=== PATIENT | male | born 1965 | race Caucasian/White ===

== ENCOUNTER 2016-09-06 09:19 | Outpatient (CLI) | payer MEDICAID | END 2016-09-06 23:59 | DX: E11.9 Type 2 diabetes mellitus without complications (principal); E22.1 Hyperprolactinemia; D35.2 Benign neoplasm of pituitary gland; N52.9 Male erectile dysfunction, unspecified ==

== ENCOUNTER 2017-03-03 08:45 | Outpatient (CLI) | payer MEDICAID ==
[2017-03-03 14:11] LABS: BASOPHILS % (AUTO) 0.4 %; EOSINOPHILS # (AUTO) 0.1 10^3/uL (0.0-0.7); HCT - HEMATOCRIT 38.1 % (42.0-52.0); HGB - HEMOGLOBIN 12.7 g/dL (14.0-18.0); LYMPHOCYTES # (AUTO) 1.4 10^3/uL (1.5-3.5); MEAN CORPUSCULAR HEMOGLOBIN 28.6 pg (27.0-31.0); MEAN CORPUSCULAR HGB CONC 33.4 g/dL (32.0-36.0); MEAN CORPUSCULAR VOLUME 85.6 fL (80.0-94.0); MONOCYTES # (AUTO) 0.5 10^3/uL (0.0-1.0); MONOCYTES % (AUTO) 5.8 %; NEUTROPHILS # (AUTO) 6.1 10^3/uL (1.5-6.6); NEUTROPHILS % (AUTO) 75.8 %; NUCLEATED RED BLOOD CELLS AUTO 0.1 /100WBC; RED BLOOD COUNT 4.45 10^6/uL (4.70-6.10); RED CELL DISTRIBUTION WIDTH 14.8 % (12.0-15.0)
[2017-03-03 14:23] LABS: ALBUMIN/GLOBULIN RATIO 1.4 (1.0-2.2); BILIRUBIN,TOTAL 0.5 mg/dL (0.2-1.0); BUN - BLOOD UREA NITROGEN 16 mg/dL (6-20); CARBON DIOXIDE - CO2 25 mmol/L (21-32); CHLORIDE 104 mmol/L (101-111); CHOL/HDL RATIO 3.2 (<5.0); CHOLESTEROL 133 mg/dL; CREATININE 0.6 mg/dL (0.6-1.2); GFR - MDRD 141 (>89); GLUCOSE 165 mg/dL (70-100); HDL CHOLESTEROL 41 mg/dL; LDL/HDL RATIO 1.9 (<3.6); POTASSIUM 4.4 mmol/L (3.5-5.0); SODIUM 136 mmol/L (135-145); TOTAL PROTEIN 6.9 g/dL (6.7-8.2); TRIGLYCERIDES 73 mg/dL; VLDL CHOLESTEROL 15 mg/dL
[2017-03-03 14:49] LABS: HEMOGLOBIN A1C 0.92 g/dL
== END 2017-03-03 08:46 | disposition home or self-care (01) ==
LOC: LAB.N 08:45
PROVIDERS: ATTEND Nurse Practitioner Gerontology
DX: I10 Essential (primary) hypertension (principal); E11.9 Type 2 diabetes mellitus without complications; D35.2 Benign neoplasm of pituitary gland; E22.1 Hyperprolactinemia
CPT/HCPCS: 36415; 80053; 80061; 83036; 84146; 85025

== ENCOUNTER 2017-12-30 08:00 | Outpatient (CLI) | payer MEDICAID ==
[2017-12-30 12:52] LABS: ALBUMIN 4.1 g/dL (3.2-5.5); ALBUMIN/GLOBULIN RATIO 1.1 (1.0-2.2); BILIRUBIN,TOTAL 0.5 mg/dL (0.2-1.0); CALCIUM 9.1 mg/dL (8.5-10.3); CREATININE 0.7 mg/dL (0.6-1.2); TOTAL PROTEIN 7.7 g/dL (6.7-8.2)
[2017-12-30 13:10] LABS: HB2 TOTAL 13.8 g/dL; HEMOGLOBIN A1C 0.74 g/dL; HEMOGLOBIN A1C % 7.1 % (4.6-6.2)
== END 2017-12-30 08:01 | disposition home or self-care (01) ==
LOC: LAB.N 08:00
PROVIDERS: ATTEND Nurse Practitioner Gerontology
DX: E11.9 Type 2 diabetes mellitus without complications (principal); I10 Essential (primary) hypertension; D35.2 Benign neoplasm of pituitary gland
CPT/HCPCS: 36415; 80053; 83036; 84146

== ENCOUNTER 2018-06-01 08:00 | Outpatient (CLI) | payer MEDICAID ==
[2018-06-01 16:48] LABS: HB2 TOTAL 13.6 g/dL; HEMOGLOBIN A1C 0.61 g/dL; HEMOGLOBIN A1C % 6.3 % (4.6-6.2)
== END 2018-06-01 23:59 | disposition home or self-care (01) ==
LOC: LAB.N 08:00
PROVIDERS: ATTEND Nurse Practitioner Gerontology
DX: E11.9 Type 2 diabetes mellitus without complications (principal)
CPT/HCPCS: 36415; 83036

== ENCOUNTER 2019-08-27 08:42 | Outpatient (CLI) | payer MEDICAID ==
[2019-08-27 12:12] LABS: BASOPHILS % (AUTO) 0.3 %; EOSINOPHILS # (AUTO) 0.1 10^3/uL (0.0-0.7); EOSINOPHILS % (AUTO) 0.8 %; HGB - HEMOGLOBIN 14.9 g/dL (14.0-18.0); LYMPHOCYTES # (AUTO) 1.1 10^3/uL (1.5-3.5); LYMPHOCYTES % (AUTO) 18.2 %; MEAN CORPUSCULAR HEMOGLOBIN 29.5 pg (27.0-31.0); MEAN CORPUSCULAR VOLUME 89.5 fL (80.0-94.0); MEAN PLATELET VOLUME 13.4 fL (7.4-11.4); MONOCYTES # (AUTO) 0.5 10^3/uL (0.0-1.0); MONOCYTES % (AUTO) 7.5 %; NEUTROPHILS # (AUTO) 4.4 10^3/uL (1.5-6.6); NEUTROPHILS % (AUTO) 72.5 %; PLT - PLATELET COUNT 218 10^3/uL (130-450); RED BLOOD COUNT 5.05 10^6/uL (4.70-6.10); RED CELL DISTRIBUTION WIDTH 12.9 % (12.0-15.0)
[2019-08-27 12:24] LABS: ALBUMIN/GLOBULIN RATIO 1.3 (1.0-2.2); ALKALINE PHOSPHATASE 90 IU/L (42-121); ALT ALANINE AMINOTRANSFERASE 22 IU/L (10-60); AST ASPARTATE AMINOTRANSFERASE 13 IU/L (10-42); BILIRUBIN,TOTAL 0.7 mg/dL (0.2-1.0); BUN - BLOOD UREA NITROGEN 13 mg/dL (6-20); CALCIUM 8.6 mg/dL (8.5-10.3); CARBON DIOXIDE - CO2 25 mmol/L (21-32); CHLORIDE 97 mmol/L (101-111); CHOL/HDL RATIO 3.9 (<5.0); CHOLESTEROL 165 mg/dL; CREATININE 0.6 mg/dL (0.6-1.2); GLUCOSE 312 mg/dL (70-100); HDL CHOLESTEROL 42 mg/dL; LDL CHOLESTEROL,CALCULATED 103 mg/dL; LDL/HDL RATIO 2.5 (<3.6); SODIUM 131 mmol/L (135-145); VLDL CHOLESTEROL 20 mg/dL
[2019-08-27 12:33] LABS: PSA FREE 0.07 ng/mL (0.16-2.81)
[2019-08-27 12:34] LABS: PSA TOTAL 0.31 ng/mL (0.000-2.000)
[2019-08-27 17:22] LABS: HB2 TOTAL 15.4 g/dL; HEMOGLOBIN A1C 1.59 g/dL; HEMOGLOBIN A1C % 11.6 % (4.6-6.2)
== END 2019-08-27 23:59 | disposition home or self-care (01) ==
LOC: LAB.N 08:42
PROVIDERS: ATTEND Nurse Practitioner Gerontology
DX: I10 Essential (primary) hypertension (principal); E11.9 Type 2 diabetes mellitus without complications; D35.2 Benign neoplasm of pituitary gland; R35.0 Frequency of micturition; R35.1 Nocturia
CPT/HCPCS: 36415; 80053; 80061; 83036; 83721; 84146; 84153; 84154; 85025

== ENCOUNTER 2020-04-27 09:52 | Outpatient (CLI) | payer OTHER, MEDICAID ==
--- NOTE | 2020-04-27 14:32 | XRAY Report ---
PROCEDURE: Lumbar Spine 2 View INDICATIONS: low back pain TECHNIQUE: 3 views of the lumbar spine were acquired. COMPARISON: None. FINDINGS: Bones: 5 [id number] vertebrae are present. There is normal bony alignment. No acute vertebral body compression fractures. No suspicious bony lesions. Mild lumbar spondylitic changes most promi nent at L2-3. Soft tissues: Overlying bowel gas pattern is normal. No suspicious soft tissue calcifications. IMPRESSION: Lumbar spine without acute radiographic abnormalities. Lumbar spondylosis most pronounce d at L2-3. Reviewed by: Lance Sampson MD on 04/27/2020 2:31 PM PST Approved by: Lance Sampson MD on 04/27/2020 2:31 PM PST Station ID: [id number]
== END 2020-04-27 23:59 | disposition home or self-care (01) ==
LOC: DI.N 09:52
PROVIDERS: ATTEND Family Medicine
DX: S39.012A Strain of muscle, fascia and tendon of lower back, initial encounter (principal); M47.816 Spondylosis without myelopathy or radiculopathy, lumbar region

== ENCOUNTER 2020-04-30 09:34 | Emergency (ER) | payer OTHER, MEDICAID ==
--- NOTE | 2020-04-30 10:21 | ED Physician Documentation ---
PD HPI BACK PAIN - Stated complaint Stated Complaint: BACK INJ - Chief complaint Chief Complaint: Back Pain - History obtained from History obtained from: Patient - History of Present Illness Timing - onset: How many days ago (4) Timing - duration: Days (4) Timing - details: Abrupt onset (at work when lifting object), Still present Location: Lower, Left Quality: Pain, Spasm, Aching Associated symptoms: No: Fever, Weakness, Numbness, Incontinent of urine Improves with: Rest. No: Meds (some improved only with Ibuprofen and muscle relaxant.) Worsened by: Movement, Lifting Contributing factors: Lifting. No: Trauma Similar symptoms before: Has not had sx before Recently seen: Clinic (walk in clinic and Rx with nsaid and muscle relaxant. Had plain xrays. Pt says some better but still hurting enough to not sleep when lying.) Review of Systems Constitutional: denies: Fever, Chills Nose: denies: Rhinorrhea / runny nose, Congestion Throat: denies: Sore throat Respiratory: denies: Cough GI: denies: Abdominal Pain, Nausea, Vomiting, Diarrhea Skin: denies: Rash Musculoskeletal: reports: Back pain Neurologic: denies: Focal weakness, Numbness PD PAST MEDICAL HISTORY - Past Medical History Cardiovascular: None Respiratory: None Neuro: None Endocrine/Autoimmune: Type 2 diabetes - Past Surgical History Past Surgical History: Yes - Present Medications Home Medications: Ambulatory Orders Medication Instructions Recorded Confirmed Sulfamethoxazole/Trimethoprim 1 each PO BID #20 tablet 08/28/14 [Bactrim Ds Tablet] cephALEXin [Keflex] 500 mg PO Q6H 10 Days capsule 08/28/14 Oxycodone HCl/Acetaminophen 1 each PO Q6H PRN #20 tablet 04/30/20 [Percocet 7.5-325 mg Tablet] - Allergies Allergies/Adverse Reactions: Allergies Allergy/AdvReac Type Severity Reaction Status Date / Time No Known Drug Allergies Allergy Verified 04/30/20 09:49 - Social History Does the pt smoke?: No Smoking Status: Never smoker Does the pt drink ETOH?: Yes Does the pt have substance abuse?: No - POLST Patient has POLST: No PD ED PE NORMAL - Vitals Vital signs reviewed: Yes - General General: Alert and oriented X 3, Well developed/nourished, Other (appears uncomfortable. ) - Cardiac Cardiac: RRR, No murmur - Respiratory Respiratory: Clear bilaterally - Abdomen Abdomen: Soft, Non tender - Back Back: No CVA TTP, Other (tender left lower lumbar muscles. No midline tenderness. No rash nor sores. ) - Derm Derm: Normal color, Warm and dry - Neuro Neuro: Alert and oriented X 3, No motor deficit, No sensory deficit, Normal speech, Other (normal reflexes at knees. ) Results - Vitals Vitals: Vital Signs - 24 hr 04/30/20 04/30/20 09:44 10:47 Temperature 36.9 C 36.0 C L Heart Rate 122 H 100 Respiratory 20 18 Rate Blood Pressure 118/75 125/71 O2 Saturation 98 95 Oxygen O2 Source Room air PD MEDICAL DECISION MAKING - ED course Complexity details: reviewed old records, considered differential, d/w patient Departure - Departure Disposition: 01 Home, Self Care Clinical Impression: Low back strain Qualifiers: Encounter type: initial encounter Qualified Code(s): S39.012A - Strain of muscle, fascia and tendon of lower back, initial encounter Acute low back pain Qualifiers: Back pain laterality: unspecified Sciatica presence: without sciatica Qualified Code(s): M54.5 - Low back pain Condition: Stable Record reviewed to determine appropriate education?: Yes Instructions: ED Sprain Strain Lumbar Prescriptions: Oxycodone HCl/Acetaminophen [Percocet 7.5-325 mg Tablet] 1 each PO Q6H PRN #20 tablet PRN Reason: Pain Comments: Continue with the anti-inflammatories and muscle relaxants previously prescribed. Heat and gentle stretching for the low back. Massage or chiropractic may be helpful as well. At Tylenol or oxycodone as needed for worse pain. I would anticipate improvement over the next several days and resolved over several days to week. Follow-up with your primary care if not improved in that timeframe. Minimal bending and lifting for the next week. Forms: Activity restrictions Discharge Date/Time: 04/30/20 11:12
[2020-04-30] MEDS ORDERED: KETOROLAC 30 MG/ML VIAL IM STA (10:40)
[2020-04-30] MEDS ORDERED: ACETAMINOPHEN 325 MG TABLET PO STA (10:40)
[2020-04-30 10:48] VITALS: BP 125/71
== END 2020-04-30 11:12 | disposition home or self-care (01) ==
LOC: ED 09:34
DX: S39.012A Strain of muscle, fascia and tendon of lower back, initial encounter (principal); X50.0XXA Overexertion from strenuous movement or load, initial encounter; Y99.0 Civilian activity done for income or pay; E11.9 Type 2 diabetes mellitus without complications
CPT/HCPCS: 99282; 99284; A9270

== ENCOUNTER 2020-05-10 08:00 | Outpatient (CLI) | payer OTHER, MEDICAID ==
[2020-05-10 12:59] LABS: BASOPHILS % (AUTO) 0.3 %; EOSINOPHILS % (AUTO) 0.3 %; LYMPHOCYTES # (AUTO) 0.7 10^3/uL (1.5-3.5); LYMPHOCYTES % (AUTO) 6.9 %; MEAN CORPUSCULAR HEMOGLOBIN 28.1 pg (27.0-31.0); MEAN CORPUSCULAR HGB CONC 30.9 g/dL (32.0-36.0); MEAN PLATELET VOLUME 11.1 fL (7.4-11.4); MONOCYTES # (AUTO) 0.5 10^3/uL (0.0-1.0); MONOCYTES % (AUTO) 5.2 %; NEUTROPHILS # (AUTO) 8.4 10^3/uL (1.5-6.6); NEUTROPHILS % (AUTO) 85.8 %; PLT - PLATELET COUNT 326 10^3/uL (130-450); RED BLOOD COUNT 3.91 10^6/uL (4.70-6.10); WHITE BLOOD COUNT 9.8 x10^3/uL (4.8-10.8)
[2020-05-10 13:33] LABS: ALBUMIN 3.2 g/dL (3.2-5.5); ALBUMIN/GLOBULIN RATIO 0.8 (1.0-2.2); ALKALINE PHOSPHATASE 104 IU/L (42-121); ALT ALANINE AMINOTRANSFERASE 44 IU/L (10-60); AST ASPARTATE AMINOTRANSFERASE 21 IU/L (10-42); BILIRUBIN,TOTAL 0.6 mg/dL (0.2-1.0); BUN - BLOOD UREA NITROGEN 15 mg/dL (6-20); CARBON DIOXIDE - CO2 26 mmol/L (21-32); CHLORIDE 97 mmol/L (101-111); CHOL/HDL RATIO 3.5 (<5.0); CHOLESTEROL 138 mg/dL; CREATININE 0.6 mg/dL (0.6-1.2); GLUCOSE 163 mg/dL (70-100); HDL CHOLESTEROL 39 mg/dL; LDL CHOLESTEROL,CALCULATED 81 mg/dL; LDL/HDL RATIO 2.1 (<3.6); SODIUM 133 mmol/L (135-145); TOTAL PROTEIN 7.2 g/dL (6.7-8.2); VLDL CHOLESTEROL 18 mg/dL
[2020-05-10 13:38] LABS: PROLACTIN 1.62 ng/mL
[2020-05-10 13:46] LABS: CREATININE,URINE 226.8 mg/dL; MICROALBUM/CREATININE RATIO,UR 35.3 ug/mg (<30.0)
[2020-05-10 13:52] LABS: HEMOGLOBIN A1c% 7.6 % (4.27-6.07)
[2020-05-13 03:47] LABS: ALBUMIN 3.3 g/dL (3.6-5.1); SEX HORMONE BINDING GLOBULIN 44 nmol/L (22-77)
== END 2020-05-10 23:59 | disposition home or self-care (01) ==
LOC: LAB.WCP 08:00
PROVIDERS: ATTEND Family Medicine
DX: R79.89 Other specified abnormal findings of blood chemistry (principal); E22.1 Hyperprolactinemia; I10 Essential (primary) hypertension; E11.9 Type 2 diabetes mellitus without complications
CPT/HCPCS: 36415; 80053; 80061; 82040; 82043; 82570; 83036; 83721; 84146; 84153; 84270; 84403; 84443; 85025

== ENCOUNTER 2020-05-16 12:20 | Inpatient (IN) | payer OTHER, MEDICAID ==
[2020-05-16] MEDS ORDERED: SODIUM CHLORIDE 0.9% 1,000 ML IV STA (12:42)
--- NOTE | 2020-05-16 12:49 | ED Physician Documentation ---
History of Present Illness - Stated complaint Stated Complaint: DULL HEAT IN LEFT SHOULDER - Chief complaint Chief Complaint: Resp - History obtained from History obtained from: Patient - Additonal information Additional information: 55-year-old male who is a diabetic presents to the emergency department for evaluation of pain in the left shoulder for about 1 week and now with 2 days of skin erythema in the anterior shoulder and chest. He denies any fevers. He denies any recent falls or trauma. He does state that last night when he was laying in bed he felt very short of air which he contributes to anxiety. He was noted to have significant dyspnea with ambulation of a short distance. He states that this is not new for him as he is obese, but the SOB at rest is new. He denies chest pain. He is a diabetic that is poorly controlled. Blood sugars this morning about 250. He denies any unilateral leg swelling recent travel or immobilization. He is a former smoker quitting about 20 years ago. Denies alcohol use. When he was seen in this emergency department a few weeks ago for low back pain I noted that he did have some tachycardia that improved with rest. pmh: DM, pituitary cyst Meds: Glyburide, metformin, lisinopril, bromocriptine. Review of Systems Constitutional: denies: Fever, Chills, Myalgias Eyes: reports: Reviewed and negative Ears: reports: Reviewed and negative Nose: reports: Reviewed and negative Throat: reports: Reviewed and negative Cardiac: reports: Palpitations. denies: Chest pain / pressure, Pedal edema, Calf pain Respiratory: reports: Dyspnea. denies: Cough, Hemoptysis, Wheezing GI: denies: Abdominal Pain, Abdominal Swelling, Nausea, Vomiting : denies: Dysuria, Frequency, Hesitancy Skin: reports: Rash Musculoskeletal: reports: Reviewed and negative Neurologic: reports: Reviewed and negative PD PAST MEDICAL HISTORY - Past Medical History Cardiovascular: None Respiratory: None Neuro: None Endocrine/Autoimmune: Type 2 diabetes - Past Surgical History Past Surgical History: Yes - Present Medications Home Medications: Ambulatory Orders Medication Instructions Recorded Confirmed Sulfamethoxazole/Trimethoprim 1 each PO BID #20 tablet 08/28/14 [Bactrim Ds Tablet] cephALEXin [Keflex] 500 mg PO Q6H 10 Days capsule 08/28/14 Oxycodone HCl/Acetaminophen 1 each PO Q6H PRN #20 tablet 04/30/20 [Percocet 7.5-325 mg Tablet] Cephalexin [Keflex] 500 mg PO Q6H #40 capsule 05/16/20 - Allergies Allergies/Adverse Reactions: Allergies Allergy/AdvReac Type Severity Reaction Status Date / Time No Known Drug Allergies Allergy Verified 05/16/20 12:25 - Social History Does the pt smoke?: No Smoking Status: Never smoker Does the pt drink ETOH?: Yes Does the pt have substance abuse?: No - POLST Patient has POLST: No PD ED PE EXPANDED - General General: Alert, No acute distress, Well developed/nourished, Other (obese, poorly conditioned) - HEENT HEENT: Atraumatic, PERRL, EOMI, Moist mucous membranes, Pharynx normal (Normal phonation. No swelling floor of mouth, neck. full ROM neck in all planes) - Neck Neck: Supple w/out meningeal sx. No: JVD present, Thyroid enlarged / mass, No tenderness - Cardiac Cardiac: Tachy, Radial strong equal, Pedal strong equal, Cap refill < 2 sec. No: Murmur Present - Respiratory Respiratory: Clear to ausultation katiuska. No: Distress, Labored - Abdomen Abdomen: Normal Bowel sounds. No: Tender to palpation - Derm Derm: Normal color, Warm and dry, Pale, Other (Area of erythema anterior chest from mid clavicular area to the AC joint of the shoulder. Mild induration. No drainage sores or lesions. Full range of motion of left shoulder in all planes without micromotion tenderness) - Extremities Extremities: Normal, Pedal Pulses Present. No: Pedal edema bilateral, Right calf TTP/cord, Left calf TTP/cord - Neuro Neuro: Alert and Oriented X 3, CNII-XII intact. No: Confused, Lethargic - GCS Eye Opening: Spontaneous Motor: Obeys Commands Verbal: Oriented Total: 15 Results - Vitals Vitals: Vital Signs - 24 hr 05/16/20 05/16/20 05/16/20 12:25 13:05 13:45 Temperature 36.9 C Heart Rate 121 H 114 H 104 H Respiratory 24 23 22 Rate Blood Pressure 132/76 H 118/76 136/79 H O2 Saturation 97 96 100 Oxygen O2 Source Room air - EKG (time done) 1304 Rate: Rate (enter#) (111) Rhythm: Sinus tachycardia, Other Vidal: Normal Intervals: Normal DC, Prolonged QT QRS: Normal Ischemia: Non specific changes (lateral leads) Compare to prior EKG: Old EKG unavailable Computer interpretation: Agree with computer - Labs Labs: Laboratory Tests 05/16/20 05/16/20 05/16/20 12:42 12:57 12:57 WBC 11.2 H RBC 3.48 L Hgb 9.7 L Hct 31.2 L MCV 89.7 MCH 27.9 MCHC 31.1 L RDW 15.2 H Plt Count 435 MPV 9.8 Neut # (Auto) 9.9 H Lymph # (Auto) 0.5 L Potter # (Auto) 0.7 Eos # (Auto) 0.0 Baso # (Auto) 0.0 Absolute Nucleated RBC 0.00 Nucleated RBC % 0.0 ESR > 140 H Sodium 133 L Potassium 3.4 L Chloride 94 L Carbon Dioxide 23 Anion Gap 16.0 H BUN 15 Creatinine 0.7 Estimated GFR (MDRD) 116 Glucose 284 H Lactic Acid Calcium 8.7 Phosphorus Magnesium Total Bilirubin 1.0 AST 25 ALT 46 Alkaline Phosphatase 121 Troponin I High Sens C-Reactive Protein 27.6 H Total Protein 6.6 L Albumin 2.7 L Globulin 3.9 Albumin/Globulin Ratio 0.7 L Lipase 17 L 05/16/20 05/16/20 05/16/20 12:57 12:57 13:50 WBC RBC Hgb Hct MCV MCH MCHC RDW Plt Count MPV Neut # (Auto) Lymph # (Auto) Potter # (Auto) Eos # (Auto) Baso # (Auto) Absolute Nucleated RBC Nucleated RBC % ESR Sodium Potassium Chloride Carbon Dioxide Anion Gap BUN Creatinine Estimated GFR (MDRD) Glucose Lactic Acid 1.9 Calcium Phosphorus 3.2 Magnesium 1.8 Total Bilirubin AST ALT Alkaline Phosphatase Troponin I High Sens 3.8 C-Reactive Protein Total Protein Albumin Globulin Albumin/Globulin Ratio Lipase - Rads (name of study) CXR Radiology: Final report received (no acute cardiopulmonary process) CT Pulmonary angio Radiology: Final report received (No evidence of acute pulmonary emboli. No evidence of acute pulmonary process. 5 mm pulmonary nodule right middle lobe.) PD MEDICAL DECISION MAKING - ED course Complexity details: reviewed results, re-evaluated patient, considered differential, d/w patient ED course: 55-year-old male presents the emergency department for evaluation of both shortness of air as well as left shoulder pain and anterior shoulder erythema cellulitis. With regards to the anterior shoulder and chest wall erythema this is most consistent with cellulitis. There are no open sores or lesions. He does not have any significant leukocytosis but I do note that he has an ESR and CRP elevation. Lactic acid is negative. He does not appear to be septic. This gentleman was given 2 g of Rocephin here in the emergency department before blood cultures were drawn and he will be discharged on Keflex for treatment of the skin infection. History and exam is not consistent with infected joint. This is also a very obese deconditioned gentleman that reports shortness of air. His EKG is nonischemic. High-sensitivity troponin is negative. Cannot PERC negative due to tachycardia. However his concern that he is short of air at rest did raise the concern for possible pulmonary embolus. CT pulmonary was negative for acute findings. While here in the emergency department this gentleman has been hemodynamically stable. At rest his heart rate is just above 100. He has not been hypoxic. COVID-19 testing is pending. Findings were discussed with the patient. He will be discharged with prescription for Keflex. Emergent return precautions discussed. Departure - Departure Disposition: 01 Home, Self Care Clinical Impression: Cellulitis of chest wall, Shortness of breath, Pulmonary nodule Condition: Stable Record reviewed to determine appropriate education?: Yes Instructions: Cellulitis Dc Follow-Up: Jose Canseco PA [Primary Care Provider] - Prescriptions: Cephalexin [Keflex] 500 mg PO Q6H #40 capsule Comments: Lamonte it looks like you have an infection in the skin of your chest and left shoulder. We have given you your first dose of antibiotic here in the emergency department. Please fill the prescription for the Keflex and begin taking 4 times a day as directed. The CT of your chest did not show any blood clots. You do have a 5 mm pulmonary nodule. This is something that should be reimaged again in 6 months to a year. Please discuss this with your primary care provider. At baseline you do have some shortness of air. This is likely related to your obesity. In the long-term I do recommend moderate weight loss and exercise. If at any point you have shortness of breath that is worse with exertion, you develop chest pain or have any fainting episodes please return immediately to the ER.
[2020-05-16 13:10] LABS: BASOPHILS % (AUTO) 0.1 %; EOSINOPHILS % (AUTO) 0.2 %; HGB - HEMOGLOBIN 9.7 g/dL (14.0-18.0); LYMPHOCYTES # (AUTO) 0.5 10^3/uL (1.5-3.5); LYMPHOCYTES % (AUTO) 4.4 %; MEAN CORPUSCULAR HEMOGLOBIN 27.9 pg (27.0-31.0); MEAN CORPUSCULAR HGB CONC 31.1 g/dL (32.0-36.0); MEAN CORPUSCULAR VOLUME 89.7 fL (80.0-94.0); MEAN PLATELET VOLUME 9.8 fL (7.4-11.4); MONOCYTES # (AUTO) 0.7 10^3/uL (0.0-1.0); MONOCYTES % (AUTO) 5.9 %; NEUTROPHILS # (AUTO) 9.9 10^3/uL (1.5-6.6); NEUTROPHILS % (AUTO) 88.5 %; PLT - PLATELET COUNT 435 10^3/uL (130-450); RED BLOOD COUNT 3.48 10^6/uL (4.70-6.10); RED CELL DISTRIBUTION WIDTH 15.2 % (12.0-15.0); WHITE BLOOD COUNT 11.2 x10^3/uL (4.8-10.8)
--- NOTE | 2020-05-16 13:14 | XRAY Report ---
PROCEDURE: Chest 1 View X-Ray INDICATIONS: Chest Pain TECHNIQUE: One view of the chest was acquired. COMPARISON: None. FINDINGS: Surgical changes and devices: None. Lungs and pleura: No pleural effusions or pneumothorax. Lungs are clear. Mediastinum: Mediastinal contours appear normal. Heart size is normal. Bones and chest wall: No suspicious bony lesions. Overlying soft tissues appear unremarkable. IMPRESSION: No acute cardiopulmonary process demonstrated radiographically. Reviewed by: Ervin Miller MD on 05/16/2020 1:13 PM [facility] Approved by: Ervin Miller MD on 05/16/2020 1:13 PM [facility] Station ID: [id number]
[2020-05-16 13:39] LABS: ALBUMIN 2.7 g/dL (3.2-5.5); ALBUMIN/GLOBULIN RATIO 0.7 (1.0-2.2); CALCIUM 8.7 mg/dL (8.5-10.3); CREATININE 0.7 mg/dL (0.6-1.2); CRP - C-REACTIVE PROTEIN 27.6 mg/dL (0-1.0); TOTAL PROTEIN 6.6 g/dL (6.7-8.2)
[2020-05-16] MEDS ORDERED: cefTRIAXone 2 GM in SODIUM CHLORIDE 0.9% MINIBAG 100 ML IV STA (13:39)
[2020-05-16] MEDS ORDERED: POTASSIUM CHLORIDE 20 MEQ TABLET PO STA (13:42)
[2020-05-16] MEDS ORDERED: IOVERSOL 320 100 ML VIAL IVP ONE ×2 (14:08→14:28)
[2020-05-16 14:16] LABS: MAGNESIUM 1.8 mg/dL (1.7-2.8); PHOSPHORUS 3.2 mg/dL (2.5-4.6)
--- NOTE | 2020-05-16 15:01 | CT Report ---
PROCEDURE: ANGIO CHEST W/WO INDICATIONS: tachycardia; soa; r/o PE CONTRAST: IV CONTRAST: Optiray 320 ml: 80 PO CONTRAST: *NO PO CONTRAST TECHNIQUE: After the administration of intravenous contrast, 2 mm thick sections acquired from the pulmonary api matt to the posterior costophrenic angles. 3-dimensional maximum intensity projection (MIP) coronal a nd sagittal reformats were then acquired through the thorax. For radiation dose reduction, the follow ing was used: automated exposure control, adjustment of mA and/or kV according to patient size. COMPARISON: None FINDINGS: Image quality: Excellent. Pulmonary arteries: Pulmonary arteries are normal in size, and demonstrate no intraluminal filling d efects to suggest central pulmonary embolism. Lungs and pleura: Lungs are clear. 5 mm pulmonary nodule, right middle lobe, image 154/6. No pleura l effusions or pneumothorax. Central and peripheral airways are patent. Mediastinum: Heart size is normal, without pericardial effusion. No mediastinal or hilar adenopathy . Thoracic aorta is normal in caliber and enhancement. Esophagus is normal in caliber, without hiat al hernia. Bones and chest wall: No suspicious bony lesions. Ribs and thoracic spine appear intact throughout. The thyroid is normal. No axillary or supraclavicular adenopathy. Abdomen: Visualized upper abdominal solid organs appear normal in the early arterial phase of enhanc ement. IMPRESSION: 1. No evidence acute pulmonary emboli. 2. No evidence acute pulmonary process. 3. 5 mm pulmonary nodule, right middle lobe. Comment: As per the Fleischner Society criteria,If the patient is at low risk for lung cancer follow up CT at 12 months, if unchanged, no further follow up needed. If the patient has risk factors for lico ng cancer, follow up chest CT at 6- 12 months, then at 18-24 months if no change. Reviewed by: Frederic Vallecillo MD on 05/16/2020 3:00 PM [facility] Approved by: Frederic Vallecillo MD on 05/16/2020 3:00 PM PST Station ID: [id number]
[2020-05-16] MEDS ORDERED: ONDANSETRON 4 MG/2 ML VIAL IVP PRN (15:56)
[2020-05-16] MEDS ORDERED: ONDANSETRON ODT 4 MG TABLET TL PRN (15:56)
[2020-05-16] MEDS ORDERED: oxyCODONE 5 MG TABLET PO PRN (15:56)
[2020-05-16] MEDS ORDERED: ACETAMINOPHEN 325 MG TABLET PO PRN (15:56)
[2020-05-16] MEDS ORDERED: SODIUM CHLORIDE FLUSH 0.9% 10 ML SYRINGE IVP PRN (15:56)
[2020-05-16 16:38] LABS: ABSOLUTE RETICS # AUTO 0.08 10^6/uL (0.020-0.110); RED BLOOD COUNT 3.5 10^6/uL (4.70-6.10)
--- NOTE | 2020-05-16 16:41 | HISTORY & PHYSICAL EXAMINATION ---
Chief Complaint - Chief Complaint Chief Complaint: pain in the left shoulder History of Present Illness - Admitted From Admitted From:: ER - History Obtained From Records Reviewed: [facility] History obtained from: pt Exam Limitations: no - History of Present Illness HPI Comment/Other: This is a 55-year-old male with a PMH significant for a diabetic and obesity who presents to the emergency department for evaluation of pain and erythema in the left shoulder and anterior his chest. pt report he had his left shoulder pain and anterior chest pain happened today morning, then his left anterior chest became erythema. He report he can left his arm but feel mild pain at his left shoulder. he report he barely can lean down his head to the left side. he felt tenderness at left inferior of his neck. He denies any recent falls or trauma. He denies any fever or chill. He denies chest pain. He also report he felt short of breathing and orthopnea when he has laying down in the bed, in which he think it contributes to his anxiety. He report he has hx of dyspnea with ambulation of a short distance due to contribution to his obesity. this is not new for him but shortness of breath at rest is new to him. He denies chest pain. Route lab test in ER show an significant elevated ESR and CRP, slight elevated WBC, lactic acid is in the normal arrange, glucose at 284, troponin is negative for Ischemia. pt is afebrile, tachycardia at 121, and tachypnea at RR 24, at normal arrange blood pressure. CTA Of chest show no evidence pulmonary emboli, Pulmonary nodule right middle lobe, No evidence of acute pulmonary process. Discussed the care goal with patient, patient requests full code History - Past Medical History Cardiovascular: reports: None Respiratory: reports: None Neuro: reports: None Endocrine/Autoimmune: reports: Type 2 diabetes MRSA Hx?: No - Family & Social History Social History Notes: former smoker quitting about 20 years ago. Denies alcohol use or drug issue. - POLST Patient has POLST: No Meds/Allgy - Home Medications Home Medications: Ambulatory Orders Medication Instructions Recorded Confirmed Bromocriptine Mesylate [Parlodel] 2.5 mg PO TID 05/16/20 Cephalexin [Keflex] 500 mg PO Q6H #40 capsule 05/16/20 Gabapentin [Neurontin] 300 mg PO QPM 05/16/20 Glipizide [Glipizide ER] 10 mg PO DAILY 12/08/20 Lisinopril [Prinivil] 5 mg PO DAILY 05/16/20 Methocarbamol [Robaxin-750] 750 mg PO TID PRN 05/16/20 Naproxen [EC-Naproxen] 500 mg PO BID 05/16/20 metFORMIN [Glucophage] 1,000 mg PO BID 05/16/20 metFORMIN [Glucophage] 500 mg PO .DAILY LUNCH 05/16/20 05/16/20 - Allergies Allergies/Adverse Reactions: Allergies Allergy/AdvReac Type Severity Reaction Status Date / Time No Known Drug Allergies Allergy Verified 05/16/20 12:25 Review of Systems - Constitutional Constitutional: denies: Fatigue, Fever, Chills, Weakness, Poor appetite, Night sweats - Eyes Eyes: denies: Pain, Blurred vision, Field loss, Vision loss - Ears, Nose & Throat Ears, Nose & Throat: denies: Ear pain, Vertigo, Sore throat, Bleeding gums - Cardiovascular Cariovascular: reports: Exertional dyspnea, Decr. exercise tolerance. denies: Irregular heart rate, Palpitations, Chest pain, Edema, Lightheadedness, Syncope - Respiratory Respiratory: reports: SOB at rest, SOB with exertion. denies: Cough, Sputum pr oduction, Wheezing, Snoring, Hemoptysis, Orthopnea - Gastrointestinal Gastrointestinal: denies: Abdominal pain, Constipation, Diarrhea, Rectal bleeding, Black stools, Bloody stools, Wally blood emesis, Coffee grounds emesis - Genitourinary Genitourinary: denies: Dysuria, Urgency, Incontinence - Musculoskeletal Musculoskeletal: reports: Limited range of motion, Joint pain. denies: Muscle pain, Muscle aches - Integumentary Integumentary: reports: Rash. denies: Lesions, Dryness - Neurological Neurological: denies: General weakness, Focal weakness, Headache, Dizziness, Numbness, Pre-existing deficit, Abnormal gait, Seizures, Incoordination, Slurred speech - Psychiatric Psychiatric: denies: Depression, Suicidal, Delusions, Hallucinations - Endocrine Endocrine: denies: Polyuria, Polyphagia - Hematologic/Lymphatic Hematologic/Lymphatic: denies: Anemia, Petechiae, Blood clots, Lymphadenopathy Exam - Vital Signs Vital Signs: Vital Signs x48h Temp Pulse Resp BP Pulse Ox 05/16/20 15:58 112 H 05/16/20 15:35 147 H 17 105/53 L 95 05/16/20 13:45 104 H 22 136/79 H 100 05/16/20 13:05 114 H 23 118/76 96 05/16/20 12:25 36.9 C 121 H 24 132/76 H 97 Conclusion/Plan - Problem List (1) Sepsis Conclusion/Plan: Patient has elevated WBC, tachycardia, tachypnea, And patient has cellulitis on left anterior chest. Patient also had significantly elevated CRP and ESR. But l actic acid is in the normal range. We will treat antibiotics with Ancef and vancomycin now. Follow-up with blood culture. Patient has history of uncontrolled diabetic as his risk factor. Continue intravenous IV fluids. (2) Cellulitis of chest wall Conclusion/Plan: Patient has erythema from left neck to anterior chest below the shoulder. Patient can left his left arm. There is no erythema or swelling around left shoulder. We will treat antibiotics, continue check CRP and ESR and lab monitor, continue IVF. (3) Diabetes Conclusion/Plan: Patient did not take insulin at home, he take 2 p.o. medication for his diabe tic. But his glucose has 284,We explained patient we will use insulin in hospital instead of his PO medication patient understand. Sliding scale, check A1c, continue hypoglycemia protocol (4) Shortness of breath Conclusion/Plan: Patient reported shortness of breathing at his rest and orthopnea. Patient reported this is new for him to have short of breathing in the rest. Patient also reported this could be contributed to his anxiety. Patient has a BMI 53 Which he also could be contributed to his shortness of breathing. CTA of the chest did not show PE or pulmonary process. We will check echo, out of bed, we might order PT/OT for pt (5) Pulmonary nodule Conclusion/Plan: CTA of the chest show patient has a 5 mm nodule in the right middle lobe. Patient has smoking history but 25 years ago. Advised patient every 6 months to have imaging study to monitor. Patient verbally state he understand (6) Morbid obesity Conclusion/Plan: Patient has 170 kg of the weight and BMI 53.3, And history of diabetic, advise pt loss of weight. (7) Tachycardia Conclusion/Plan: Patient has a sinus tach around 120, patient denies chest pain, troponin is negative for ischemia. It is likely caused by patient infection and sepsis response. We will continue treated with antibiotics, intravenous IV fluids, continue engine monitor patient (8) Nodule of skin of neck Conclusion/Plan: Patient has a tenderness nodule at the left inferior neck, it can be reactive lymph node, We will order ultrasound to monitor. - Lab Results Fish Bones: 05/16/20 12:57 05/16/20 12:57 Core Measures - Anticipated LOS I expect patient to be DC'd or transferred within 96 hours.: Yes - DVT/VTE - Prophylaxis VTE/DVT Device ordered at admit?: Yes VTE/DVT Prophylaxis med ordered at admit?: Yes
--- NOTE | 2020-05-16 16:47 | CT Report ---
PROCEDURE: UPPER EXTREMITY WO - LT INDICATIONS: left shoulder pain w sepsis TECHNIQUE: Noncontrast 3 mm axial sections acquired of the left shoulder, with coronal and sagittal reformats. COMPARISON: None. FINDINGS: Image quality: Excellent. Bones: No evidence acute fracture or dislocation. No significant joint effusion identified. Bony cor patricia at the shoulder joint is intact. Soft tissues: No fluid collections identified. IMPRESSION: No evidence acute bony abnormality of the left shoulder. No evidence of osteomyelitis. Reviewed by: Frederic Vallecillo MD on 05/16/2020 4:46 PM PST Approved by: Frederic Vallecillo MD on 05/16/2020 4:46 PM PST Station ID: [id number]
[2020-05-16] MEDS ORDERED: VANCOMYCIN INJ 3 GM in SODIUM CHLORIDE 0.9% 500 ML IV SCH (17:00)
[2020-05-16] MEDS ORDERED: LORazepam 0.5 MG TABLET PO PRN (17:06)
[2020-05-16 17:08] LABS: FERRITIN 336.9 ng/mL (23.9-336.2)
[2020-05-16 17:16] LABS: % IRON SATURATION 9 % (20-50); IRON 20 ug/dL (45-182); TOTAL IRON BINDING CAPACITY 225 ug/dL (250-450); TRANSFERRIN 161 mg/dL (180-329)
[2020-05-16] MEDS: LACTATED RINGERS 1,000 ML IV SCH (17:24)
[2020-05-16] MEDS: SODIUM CHLORIDE FLUSH 0.9% 10 ML SYRINGE IVP SCH (17:25)
[2020-05-16 17:48] LABS: C. PNEUMONIAE- RESP PCR PANEL NOT DETECTED
--- NOTE | 2020-05-16 17:58 | PHARMACY PROGRESS NOTE ---
- Therapy Status Vancomycin regimen day #: 1 Therapy status: Awaiting steady state Basis for treatment: Empirical Treatment indication: Sepsis with likely cellulitis source Trough goal: 15-20 - RUPERT Risk Risk level for Acute Kidney Injury: Moderate Acute Kidney Injury risk factors: Wt >100kg or BMI >40, Goal trough >15, Total daily Vancomycin >4 grams - Monitoring and Recommendation Clinical response to treatment: I&O Previous 24 hours 05/14/20 05/15/20 05/16/20 23:59 23:59 23:59 Intake Total 1100 Balance 1100 Lab Results 05/16/20 05/16/20 12:57 12:42 ESR > 140 H BUN 15 Creatinine 0.7 Estimated GFR (MDRD) 116 Monitoring plan: Daily serum creatinine, Draw trough early, Suggest ongoing fluid replacement Next trough due prior to maintenance dose #: 5 Next trough due (date/time): 05/18/2020 Areas for additional monitoring: IV to PO when appropriate, Therapy de- escalation based on culture results Pharmacy recommendation: Continue current regime
[2020-05-16] MEDS: INSULIN ASPART 300 UNIT/3 ML PEN SUBQ SCH ×2 (18:00→22:17)
--- NOTE | 2020-05-16 18:16 | PHARMACY PROGRESS NOTE ---
- Best Possible Medication History Admit Date and Time: 05/16/20 1556 Processed by: Pharmacy Medication History completed: Yes Patient Interview: Completed Secondary Source(s): Insurance records As the person ultimately responsible for medication therapy, providers are able to order a medication from an existing home medication list in [facility] via the "Reconcile Routine" prior to Confirmation of that medication by health support specialist. Such practice is discouraged except when the physician, in their clinical judgment, deems that a medical need exists for a medication without regard to previous use.
[2020-05-16 19:00] LABS: MUDS CUTOFF CONCENTRATIONS CUTOFF CONC BELOW:
[2020-05-16 19:03] LABS: GLUCOSE, URINE (UA) 250 mg/dL (NEGATIVE); KETONES,URINE (UA) NEGATIVE (NEGATIVE); LEUKOCYTE ESTERASE, URINE NEGATIVE (NEGATIVE); NITRITE,URINE NEGATIVE (NEGATIVE); OCCULT BLOOD,URINE LARGE (NEGATIVE); PH,URINE 5.5 PH (5.0-7.5); PROTEIN,URINE 30 mg/dL (NEGATIVE); UROBILINOGEN,URINE >=8.0 E.U./dL (NORMAL)
[2020-05-16 19:14] LABS: CLARITY,URINE SL. CLOUDY (CLEAR)
[2020-05-16 19:15] LABS: BILIRUBIN,URINE NEGATIVE (NEGATIVE); ICTOTEST,URINE NEGATIVE
[2020-05-16] MEDS: SACCHAROMYCES BOULARDII 250 MG CAPSULE PO SCH (19:16)
[2020-05-16 19:22] LABS: BACTERIA,URINE Rare /HPF (None Seen); CASTS, URINE 0-2 RBC Casts /LPF; RBC,URINE TNTC /HPF (0-5); SQUAMOUS EPITHELIAL CELL,UR NONE SEEN (<= Few)
[2020-05-16 19:23] LABS: COCAINE SCREEN URINE NEGATIVE (NEGATIVE)
[2020-05-16 19:24] LABS: AMPHETAMINE SCREEN,URINE NEGATIVE (NEGATIVE); BENZODIAZEPINES SCREEN, URINE NEGATIVE (NEGATIVE); METHADONE SCREEN, URINE NEGATIVE (NEGATIVE); METHAMPHETAMINES SCREEN, URINE NEGATIVE (NEGATIVE); OPIATE SCREEN, URINE NEGATIVE (NEGATIVE); OXYCODONE SCREEN, URINE NEGATIVE (NEGATIVE); PROPOXYPHENE SCREEN, URINE NEGATIVE (NEGATIVE); TRICYCLIC ANTIDEPRESSANT,URINE NEGATIVE (NEGATIVE)
[2020-05-16 20:01] LABS: HEMOGLOBIN A1c% 7.8 % (4.27-6.07)
[2020-05-16] MEDS ORDERED: INSULIN GLARGINE 300 UNIT/3 ML PEN SUBQ SCH (21:00)
[2020-05-16] MEDS ORDERED: ceFAZolin 2 GM in SODIUM CHLORIDE 0.9% 100ML 100 ML IV SCH (22:00)
[2020-05-17] MEDS: SODIUM CHLORIDE FLUSH 0.9% 10 ML SYRINGE IVP SCH ×3 (00:50→16:59)
[2020-05-17] MEDS: VANCOMYCIN INJ 1 GM, VANCOMYCIN INJ 500 MG in SODIUM CHLORIDE 0.9% 500 ML IV SCH ×3 (02:01→17:05)
[2020-05-17] MEDS: LACTATED RINGERS 1,000 ML IV SCH (02:07)
[2020-05-17 05:04] LABS: BASOPHILS % (AUTO) 0.3 %; EOSINOPHILS % (AUTO) 0.1 %; HGB - HEMOGLOBIN 9.5 g/dL (14.0-18.0); LYMPHOCYTES # (AUTO) 0.6 10^3/uL (1.5-3.5); LYMPHOCYTES % (AUTO) 5.7 %; MEAN CORPUSCULAR HEMOGLOBIN 27.7 pg (27.0-31.0); MEAN CORPUSCULAR HGB CONC 31.4 g/dL (32.0-36.0); MEAN CORPUSCULAR VOLUME 88.3 fL (80.0-94.0); MEAN PLATELET VOLUME 9.9 fL (7.4-11.4); MONOCYTES # (AUTO) 0.8 10^3/uL (0.0-1.0); NEUTROPHILS # (AUTO) 9.6 10^3/uL (1.5-6.6); PLT - PLATELET COUNT 469 10^3/uL (130-450); RED BLOOD COUNT 3.43 10^6/uL (4.70-6.10); RED CELL DISTRIBUTION WIDTH 15.5 % (12.0-15.0); WHITE BLOOD COUNT 11.2 x10^3/uL (4.8-10.8)
[2020-05-17 05:35] LABS: CALCIUM 8.6 mg/dL (8.5-10.3); CREATININE 0.6 mg/dL (0.6-1.2); CRP - C-REACTIVE PROTEIN 22.6 mg/dL (0-1.0)
[2020-05-17] MEDS: INSULIN GLARGINE 300 UNIT/3 ML PEN SUBQ SCH (08:15)
[2020-05-17] MEDS: SACCHAROMYCES BOULARDII 250 MG CAPSULE PO SCH ×2 (08:15→17:01)
[2020-05-17] MEDS: INSULIN ASPART 300 UNIT/3 ML PEN SUBQ SCH ×4 (08:16→20:41)
--- NOTE | 2020-05-17 08:30 | Ultrasound Report ---
PROCEDURE: Head or Neck Soft Tissue INDICATIONS: left neck tenderness and nodule TECHNIQUE: Real time scanning was performed of the neck region of interest, with image documentation . COMPARISON: None. FINDINGS: In the area of clinical concern and pain, there is a nonspecific heterogeneous masslike fo cus measuring 5.0 x 1.7 x 3.0 cm, with associated calcifications. There is some internal vascularity. IMPRESSION: Nonspecific mass in the area of the supraclavicular tenderness and erythema. This finding technically indeterminate and could reflect enlarged lymphadenopathy, benign or malignant neoplasm. Hematoma or infectious etiologies are thought to be less likely. Findings are technically indeterminate and there fore recommend clinical correlation and management. If clinically necessary, further evaluation with contrast-enhanced CT neck could be performed. Reviewed by: Manuel Pena MD on 05/17/2020 8:29 AM PST Approved by: Manuel Pena MD on 05/17/2020 8:29 AM PST Station ID: [id number]
[2020-05-17] MEDS ORDERED: methocarbamoL 500 MG TABLET PO PRN (08:40)
[2020-05-17] MEDS: ENOXAPARIN 40 MG/0.4 ML SYRINGE SUBQ SCH (08:55)
[2020-05-17] MEDS: FERROUS SULFATE 325 MG TABLET PO SCH ×2 (08:55→17:01)
[2020-05-17] MEDS: lisinopriL 5 MG TABLET PO SCH (08:55)
--- NOTE | 2020-05-17 09:40 | XRAY Report ---
PROCEDURE: Chest 1 View X-Ray INDICATIONS: SOB TECHNIQUE: One view of the chest was acquired. COMPARISON: 05/16/2020 FINDINGS: Surgical changes and devices: None. Lungs and pleura: No pleural effusions or pneumothorax. Scattered subsegmental scarring/atelectasis . No acute consolidation. Lung volumes are decreased Mediastinum: Mediastinal contours appear normal. Heart size is normal. Bones and chest wall: No suspicious bony lesions. Overlying soft tissues appear unremarkable. IMPRESSION: Decreased lung volumes. Scattered subsegmental scarring/atelectasis. No acute consolidation. Reviewed by: Manuel Pena MD on 05/17/2020 9:39 AM [facility] Approved by: Manuel Pena MD on 05/17/2020 9:39 AM [facility] Station ID: [id number]
[2020-05-17] MEDS ORDERED: LEVALBUTEROL 1.25 MG/3 ML NEB INH PRN (10:09)
[2020-05-17] MEDS: FUROSEMIDE 20 MG/2 ML VIAL IVP SCH ×2 (10:24→14:10)
[2020-05-17] MEDS ORDERED: METOPROLOL TARTRATE 25 MG TABLET PO SCH ×2 (11:00→13:16)
[2020-05-17] MEDS ORDERED: METOPROLOL 5 MG/5 ML VIAL IVP STA (11:40)
--- NOTE | 2020-05-17 11:49 | PROVIDER PROGRESS NOTE ---
Subjective - Prog Note Date Prog Note Date: 05/17/20 - Subjective Pt reports feeling: Improved Subjective: Patient report he feel his shortness of breathing is better today. He also report he feel better for his left anterior chest wall cellulitis. He denies chest pain, fever. Current Medications - Current Medications Current Medications: Active Medications Acetaminophen (Acetaminophen 325 Mg Tablet) 650 mg PO Q4HR PRN PRN Reason: Pain 1 to 4 Enoxaparin Sodium (Enoxaparin 40 Mg/0.4 Ml Syringe) 40 mg SUBQ DAILY [facility] Last Admin: 05/17/20 08:55 Dose: 40 mg Documented by: Ferrous Sulfate (Ferrous Sulfate 325 Mg Tablet) 325 mg PO BIDWM [facility] Last Admin: 05/17/20 08:55 Dose: 325 mg Documented by: Furosemide (Furosemide 20 Mg/2 Ml Vial) 20 mg IVP BIDDIURETIC [facility] Last Admin: 05/17/20 10:24 Dose: 20 mg Documented by: Gabapentin (Gabapentin 300 Mg Capsule) 300 mg PO QPM [facility] Vancomycin HCl 1 gm/Vancomycin HCl 500 mg/ Sodium Chloride 500 mls @ 250 mls/hr IV Q8H [facility] Last Admin: 05/17/20 09:37 Dose: 250 mls/hr Documented by: Insulin Aspart (Insulin Aspart 300 Unit/3 Ml Pen) 2 - 10 unit SUBQ 0800,1200,1700,2100 [facility]; Protocol Insulin Glargine (Insulin Glargine 300 Unit/3 Ml Pen) 10 unit SUBQ QPM [facility] Last Admin: 05/16/20 22:17 Dose: 10 unit Documented by: Insulin Glargine (Insulin Glargine 300 Unit/3 Ml Pen) 10 unit SUBQ QDBREAKFAST [facility] Last Admin: 05/17/20 08:15 Dose: 10 unit Documented by: Levalbuterol HCl (Levalbuterol 1.25 Mg/3 Ml Neb) 1.25 mg INH RTQ4H PRN PRN Reason: Shortness of Air/Wheezing Lisinopril (Lisinopril 5 Mg Tablet) 5 mg PO DAILY [facility] Last Admin: 05/17/20 08:55 Dose: 5 mg Documented by: Lorazepam (Lorazepam 0.5 Mg Tablet) 0.5 mg PO Q12H PRN PRN Reason: Anxiety Last Admin: 05/17/20 02:24 Dose: 0.5 mg Documented by: Methocarbamol (Methocarbamol 500 Mg Tablet) 750 mg PO TID PRN PRN Reason: Spasms Metoprolol Tartrate (Metoprolol Tartrate 25 Mg Tablet) 25 mg PO BID [facility] Ondansetron HCl (Ondansetron Odt 4 Mg Tablet) 4 mg TL Q6HR PRN PRN Reason: Nausea / Vomiting Ondansetron HCl (Ondansetron 4 Mg/2 Ml Vial) 4 mg IVP Q6HR PRN PRN Reason: Nausea / Vomiting Oxycodone HCl (Oxycodone 5 Mg Tablet) 5 mg PO Q4HR PRN PRN Reason: Pain 5 to 7 Saccharomyces Boulardii (Saccharomyces Boulardii 250 Mg Capsule) 500 mg PO BIDWM [facility] Last Admin: 05/17/20 08:15 Dose: 500 mg Documented by: Sodium Chloride (Sodium Chloride Flush 0.9% 10 Ml Syringe) 10 ml IVP PRN PRN PRN Reason: NEEDED PER PROVIDER ORDERS Sodium Chloride (Sodium Chloride Flush 0.9% 10 Ml Syringe) 10 ml IVP 0100,0900,1700 [facility] Last Admin: 05/17/20 08:16 Dose: 10 ml Documented by: Bromocriptine Mesylate [Parlodel] 2.5 mg PO TID 05/16/20 Gabapentin [Neurontin] 300 mg PO QPM 05/16/20 Glipizide [Glipizide Xl] 10 mg PO DAILYWM 05/16/20 Lisinopril [Prinivil] 5 mg PO DAILY 05/16/20 Methocarbamol [Robaxin-750] 750 mg PO TID PRN 05/16/20 Naproxen [EC-Naproxen] 500 mg PO BID 05/16/20 metFORMIN [Glucophage] 1,000 mg PO BIDWM 05/16/20 metFORMIN [Glucophage] 500 mg PO QDLUNCH 05/16/20 Objective - Vital Signs/Intake & Output Vital Signs: Vital Signs x48h Temp Pulse Pulse Resp BP Pulse Ox 05/17/20 09:30 36.5 C 124 H 22 95 05/17/20 09:00 37.2 C 125 H 22 174/86 H 93 05/17/20 05:00 36.5 C 128 H 22 143/72 H 92 Intake & Output: Intake & Output 05/14/20 05/15/20 05/16/20 05/17/20 23:59 23:59 23:59 23:59 Intake Total 3926.667 1265 Output Total 300 Balance 3626.667 1265 - Objective General Appearance: positive: Alert, Mild distress. negative: Lethargic Eyes Bilateral: positive: Normal inspection, PERRL, No lid inflammation ENT: positive: ENT inspection nml, No signs of dehydration. negative: Purulent nasal drainage Neck: positive: Thyroid nml, Trachea midline, Other (left lateral inferior mass with tenderness). negative: Thyromegaly, Lymphadenopathy (R), Lymphadenopathy (L), Stiff neck, Tracheal deviation Respiratory: positive: Chest non-tender, Rhonchi. negative: No respiratory distress, Breath sounds nml, Wheezes, Rales Cardiovascular: positive: Regular rate & rhythm, No murmur, Tachycardia. negative: Bradycardia, Systolic murmur, Diastolic murmur Peripheral Pulses: 2+ Radial (R), 2+ Radial (L) Abdomen: positive: Non-tender, Nml bowel sounds, No distention. negative: Tenderness, Guarding, Rebound Back: positive: Nml inspection. negative: CVA tenderness (R), CVA tenderness (L) Skin: positive: Warm, Dry, Other (mild erythema). negative: Cyanosis, Diaphoresis, Pallor Extremities: positive: Non-tender, Full ROM, Nml appearance. negative: Calf tenderness Neurologic/Psychiatric: positive: Oriented x3, Motor nml, Sensation nml, Mood/affect nml. negative: Weakness, Sensory loss, Facial droop, Slurred/abnml speech, Depressed mood/affect - Lab Results Fish Bones: 05/17/20 04:40 05/17/20 04:40 Other Labs: Lab Results x24hrs 05/17/20 05/17/20 05/17/20 Range/Units 11:30 08:07 04:40 WBC (4.8-10.8) x10^3/uL RBC (4.70-6.10) 10^6/uL Hgb (14.0-18.0) g/dL Hct (42.0-52.0) % MCV (80.0-94.0) fL MCH (27.0-31.0) pg MCHC (32.0-36.0) g/dL RDW (12.0-15.0) % Plt Count (130-450) 10^3/uL MPV (7.4-11.4) fL Reticulocyte % (Auto) (0.5-2.3) % Neut # (Auto) (1.5-6.6) 10^3/uL Lymph # (Auto) (1.5-3.5) 10^3/uL [place] # (Auto) (0.0-1.0) 10^3/uL Eos # (Auto) (0.0-0.7) 10^3/uL Baso # (Auto) (0.0-0.1) 10^3/uL Absolute Nucleated RBC x10^3/uL Nucleated RBC % /100WBC ESR (0-20) mm/Hr Absolute Retic (0.020-0.110) 10^6/uL Sodium (135-145) mmol/L Potassium (3.5-5.0) mmol/L Chloride (101-111) mmol/L Carbon Dioxide (21-32) mmol/L Anion Gap (6-13) BUN (6-20) mg/dL Creatinine (0.6-1.2) mg/dL Estimated GFR (MDRD) (>89) Glucose (70-100) mg/dL POC Whole Bld Glucose 306 H 252 H (70 - 100) mg/dL Estimat Average Glucose (70-100) mg/dL Hemoglobin A1c % (4.27-6.07) % Lactic Acid (0.5-2.2) mmol/L Calcium (8.5-10.3) mg/dL Phosphorus (2.5-4.6) mg/dL Magnesium (1.7-2.8) mg/dL Iron (45-182) ug/dL TIBC (250-450) ug/dL % Saturation (20-50) % Transferrin (180-329) mg/dL Ferritin (23.9-336.2) ng/mL Total Bilirubin (0.2-1.0) mg/dL AST (10-42) IU/L ALT (10-60) IU/L Alkaline Phosphatase (42-121) IU/L Lactate Dehydrogenase (91-225) IU/L Troponin I High Sens (2.3-19.7) ng/L C-Reactive Protein (0-1.0) mg/dL B-Natriuretic Peptide 779 H (5-100) pg/mL Total Protein (6.7-8.2) g/dL Albumin (3.2-5.5) g/dL Globulin (2.1-4.2) g/dL Albumin/Globulin Ratio (1.0-2.2) Lipase (22-51) U/L Vitamin B12 (180-914) pg/mL Urine Color Urine Clarity (CLEAR) Urine pH (5.0-7.5) PH Ur Specific [place] (1.002-1.030) Urine Protein (NEGATIVE) mg/dL Urine Glucose (UA) (NEGATIVE) mg/dL Urine Ketones (NEGATIVE) mg/dL Urine Occult Blood (NEGATIVE) Urine Nitrite (NEGATIVE) Urine Bilirubin (NEGATIVE) Urine Urobilinogen (NORMAL) E.U./dL Ur Leukocyte Esterase (NEGATIVE) Urine RBC (0-5) /HPF Urine WBC (0-3) /HPF Ur Squamous Epith Cells (<= Few) Urine Bacteria (None Seen) /HPF Urine Casts /LPF Ur Microscopic Review Urine Culture Comments Nasal Adenovirus (PCR) Nasal B. parapertussis DNA (PCR) Nasal Coronavir 229E PCR Nasal Coronavir HKU1 PCR Nasal Coronavir NL63 PCR Nasal Coronavir OC43 PCR Nasal Enterovir/Rhinovir PCR Nasal Influenza B PCR Nasal Influenza A PCR Nasal Parainfluen 1 PCR Nasal Parainfluen 2 PCR Nasal Parainfluen 3 PCR Nasal Parainfluen 4 PCR Nasal RSV (PCR) Nasal B.pertussis DNA PCR Nasal C.pneumoniae (PCR) Raghavendra Human Metapneumo PCR Nasal M.pneumoniae (PCR) Nasal SARS-CoV-2 (PCR) Urine Opiates Screen (NEGATIVE) Ur Oxycodone Screen (NEGATIVE) Urine Methadone Screen (NEGATIVE) Ur Propoxyphene Screen (NEGATIVE) Ur Barbiturates Screen (NEGATIVE) Ur Tricyclics Screen (NEGATIVE) Ur Phencyclidine Scrn (NEGATIVE) Ur Amphetamine Screen (NEGATIVE) U Methamphetamines Scrn (NEGATIVE) U Benzodiazepines Scrn (NEGATIVE) Urine Cocaine Screen (NEGATIVE) U Cannabinoids Screen (NEGATIVE) 05/17/20 05/17/20 05/16/20 Range/Units 04:40 04:40 21:30 WBC 11.2 H (4.8-10.8) x10^3/uL RBC 3.43 L (4.70-6.10) 10^6/uL Hgb 9.5 L (14.0-18.0) g/dL Hct 30.3 L (42.0-52.0) % MCV 88.3 (80.0-94.0) fL MCH 27.7 (27.0-31.0) pg MCHC 31.4 L (32.0-36.0) g/dL RDW 15.5 H (12.0-15.0) % Plt Count 469 H (130-450) 10^3/uL MPV 9.9 (7.4-11.4) fL Reticulocyte % (Auto) (0.5-2.3) % Neut # (Auto) 9.6 H (1.5-6.6) 10^3/uL Lymph # (Auto) 0.6 L (1.5-3.5) 10^3/uL [place] # (Auto) 0.8 (0.0-1.0) 10^3/uL Eos # (Auto) 0.0 (0.0-0.7) 10^3/uL Baso # (Auto) 0.0 (0.0-0.1) 10^3/uL Absolute Nucleated RBC 0.00 x10^3/uL Nucleated RBC % 0.0 /100WBC ESR (0-20) mm/Hr Absolute Retic (0.020-0.110) 10^6/uL Sodium 133 L (135-145) mmol/L Potassium 3.7 (3.5-5.0) mmol/L Chloride 97 L (101-111) mmol/L Carbon Dioxide 23 (21-32) mmol/L Anion Gap 13.0 (6-13) BUN 14 (6-20) mg/dL Creatinine 0.6 (0.6-1.2) mg/dL Estimated GFR (MDRD) 139 (>89) Glucose 235 H (70-100) mg/dL POC Whole Bld Glucose 270 H (70 - 100) mg/dL Estimat Average Glucose (70-100) mg/dL Hemoglobin A1c % (4.27-6.07) % Lactic Acid (0.5-2.2) mmol/L Calcium 8.6 (8.5-10.3) mg/dL Phosphorus (2.5-4.6) mg/dL Magnesium (1.7-2.8) mg/dL Iron (45-182) ug/dL TIBC (250-450) ug/dL % Saturation (20-50) % Transferrin (180-329) mg/dL Ferritin (23.9-336.2) ng/mL Total Bilirubin (0.2-1.0) mg/dL AST (10-42) IU/L ALT (10-60) IU/L Alkaline Phosphatase (42-121) IU/L Lactate Dehydrogenase (91-225) IU/L Troponin I High Sens (2.3-19.7) ng/L C-Reactive Protein 22.6 H (0-1.0) mg/dL B-Natriuretic Peptide (5-100) pg/mL Total Protein (6.7-8.2) g/dL Albumin (3.2-5.5) g/dL Globulin (2.1-4.2) g/dL Albumin/Globulin Ratio (1.0-2.2) Lipase (22-51) U/L Vitamin B12 (180-914) pg/mL Urine Color Urine Clarity (CLEAR) Urine pH (5.0-7.5) PH Ur Specific [place] (1.002-1.030) Urine Protein (NEGATIVE) mg/dL Urine Glucose (UA) (NEGATIVE) mg/dL Urine Ketones (NEGATIVE) mg/dL Urine Occult Blood (NEGATIVE) Urine Nitrite (NEGATIVE) Urine Bilirubin (NEGATIVE) Urine Urobilinogen (NORMAL) E.U./dL Ur Leukocyte Esterase (NEGATIVE) Urine RBC (0-5) /HPF Urine WBC (0-3) /HPF Ur Squamous Epith Cells (<= Few) Urine Bacteria (None Seen) /HPF Urine Casts /LPF Ur Microscopic Review Urine Culture Comments Nasal Adenovirus (PCR) Nasal B. parapertussis DNA (PCR) Nasal Coronavir 229E PCR Nasal Coronavir HKU1 PCR Nasal Coronavir NL63 PCR Nasal Coronavir OC43 PCR Nasal Enterovir/Rhinovir PCR Nasal Influenza B PCR Nasal Influenza A PCR Nasal Parainfluen 1 PCR Nasal Parainfluen 2 PCR Nasal Parainfluen 3 PCR Nasal Parainfluen 4 PCR Nasal RSV (PCR) Nasal B.pertussis DNA PCR Nasal C.pneumoniae (PCR) Raghavendra Human Metapneumo PCR Nasal M.pneumoniae (PCR) Nasal SARS-CoV-2 (PCR) Urine Opiates Screen (NEGATIVE) Ur Oxycodone Screen (NEGATIVE) Urine Methadone Screen (NEGATIVE) Ur Propoxyphene Screen (NEGATIVE) Ur Barbiturates Screen (NEGATIVE) Ur Tricyclics Screen (NEGATIVE) Ur Phencyclidine Scrn (NEGATIVE) Ur Amphetamine Screen (NEGATIVE) U Methamphetamines Scrn (NEGATIVE) U Benzodiazepines Scrn (NEGATIVE) Urine Cocaine Screen (NEGATIVE) U Cannabinoids Screen (NEGATIVE) 05/16/20 05/16/20 05/16/20 Range/Units 18:45 17:16 16:45 WBC (4.8-10.8) x10^3/uL RBC (4.70-6.10) 10^6/uL Hgb (14.0-18.0) g/dL Hct (42.0-52.0) % MCV (80.0-94.0) fL MCH (27.0-31.0) pg MCHC (32.0-36.0) g/dL RDW (12.0-15.0) % Plt Count (130-450) 10^3/uL MPV (7.4-11.4) fL Reticulocyte % (Auto) (0.5-2.3) % Neut # (Auto) (1.5-6.6) 10^3/uL Lymph # (Auto) (1.5-3.5) 10^3/uL [place] # (Auto) (0.0-1.0) 10^3/uL Eos # (Auto) (0.0-0.7) 10^3/uL Baso # (Auto) (0.0-0.1) 10^3/uL Absolute Nucleated RBC x10^3/uL Nucleated RBC % /100WBC ESR (0-20) mm/Hr Absolute Retic (0.020-0.110) 10^6/uL Sodium (135-145) mmol/L Potassium (3.5-5.0) mmol/L Chloride (101-111) mmol/L Carbon Dioxide (21-32) mmol/L Anion Gap (6-13) BUN (6-20) mg/dL Creatinine (0.6-1.2) mg/dL Estimated GFR (MDRD) (>89) Glucose (70-100) mg/dL POC Whole Bld Glucose 219 H (70 - 100) mg/dL Estimat Average Glucose (70-100) mg/dL Hemoglobin A1c % (4.27-6.07) % Lactic Acid (0.5-2.2) mmol/L Calcium (8.5-10.3) mg/dL Phosphorus (2.5-4.6) mg/dL Magnesium (1.7-2.8) mg/dL Iron (45-182) ug/dL TIBC (250-450) ug/dL % Saturation (20-50) % Transferrin (180-329) mg/dL Ferritin (23.9-336.2) ng/mL Total Bilirubin (0.2-1.0) mg/dL AST (10-42) IU/L ALT (10-60) IU/L Alkaline Phosphatase (42-121) IU/L Lactate Dehydrogenase (91-225) IU/L Troponin I High Sens (2.3-19.7) ng/L C-Reactive Protein (0-1.0) mg/dL B-Natriuretic Peptide (5-100) pg/mL Total Protein (6.7-8.2) g/dL Albumin (3.2-5.5) g/dL Globulin (2.1-4.2) g/dL Albumin/Globulin Ratio (1.0-2.2) Lipase (22-51) U/L Vitamin B12 (180-914) pg/mL Urine Color DARK YELLOW Urine Clarity SL. CLOUDY (CLEAR) Urine pH 5.5 (5.0-7.5) PH Ur Specific [place] 1.015 (1.002-1.030) Urine Protein 30 H (NEGATIVE) mg/dL Urine Glucose (UA) 250 H (NEGATIVE) mg/dL Urine Ketones NEGATIVE (NEGATIVE) mg/dL Urine Occult Blood LARGE H (NEGATIVE) Urine Nitrite NEGATIVE (NEGATIVE) Urine Bilirubin NEGATIVE (NEGATIVE) Urine Urobilinogen >=8.0 H (NORMAL) E.U./dL Ur Leukocyte Esterase NEGATIVE (NEGATIVE) Urine RBC TNTC H (0-5) /HPF Urine WBC 0-3 (0-3) /HPF Ur Squamous Epith Cells NONE SEEN (<= Few) Urine Bacteria Rare (None Seen) /HPF Urine Casts 0-2 RBC Casts /LPF Ur Microscopic Review INDICATED Urine Culture Comments NOT INDICATED Nasal Adenovirus (PCR) NOT DETECTED Nasal B. parapertussis DNA (PCR) NOT DETECTED Nasal Coronavir 229E PCR NOT DETECTED Nasal Coronavir HKU1 PCR NOT DETECTED Nasal Coronavir NL63 PCR NOT DETECTED Nasal Coronavir OC43 PCR NOT DETECTED Nasal Enterovir/Rhinovir PCR NOT DETECTED Nasal Influenza B PCR NOT DETECTED Nasal Influenza A PCR NOT DETECTED Nasal Parainfluen 1 PCR NOT DETECTED Nasal Parainfluen 2 PCR NOT DETECTED Nasal Parainfluen 3 PCR NOT DETECTED Nasal Parainfluen 4 PCR NOT DETECTED Nasal RSV (PCR) NOT DETECTED Nasal B.pertussis DNA PCR NOT DETECTED Nasal C.pneumoniae (PCR) NOT DETECTED Raghavendra Human Metapneumo PCR NOT DETECTED Nasal M.pneumoniae (PCR) NOT DETECTED Nasal SARS-CoV-2 (PCR) NOT DETECTED Urine Opiates Screen NEGATIVE (NEGATIVE) Ur Oxycodone Screen NEGATIVE (NEGATIVE) Urine Methadone Screen NEGATIVE (NEGATIVE) Ur Propoxyphene Screen NEGATIVE (NEGATIVE) Ur Barbiturates Screen NEGATIVE (NEGATIVE) Ur Tricyclics Screen NEGATIVE (NEGATIVE) Ur Phencyclidine Scrn NEGATIVE (NEGATIVE) Ur Amphetamine Screen NEGATIVE (NEGATIVE) U Methamphetamines Scrn NEGATIVE (NEGATIVE) U Benzodiazepines Scrn NEGATIVE (NEGATIVE) Urine Cocaine Screen NEGATIVE (NEGATIVE) U Cannabinoids Screen POSITIVE H (NEGATIVE) 05/16/20 05/16/20 05/16/20 Range/Units 15:56 13:50 12:57 WBC (4.8-10.8) x10^3/uL RBC (4.70-6.10) 10^6/uL Hgb (14.0-18.0) g/dL Hct (42.0-52.0) % MCV (80.0-94.0) fL MCH (27.0-31.0) pg MCHC (32.0-36.0) g/dL RDW (12.0-15.0) % Plt Count (130-450) 10^3/uL MPV (7.4-11.4) fL Reticulocyte % (Auto) (0.5-2.3) % Neut # (Auto) (1.5-6.6) 10^3/uL Lymph # (Auto) (1.5-3.5) 10^3/uL [place] # (Auto) (0.0-1.0) 10^3/uL Eos # (Auto) (0.0-0.7) 10^3/uL Baso # (Auto) (0.0-0.1) 10^3/uL Absolute Nucleated RBC x10^3/uL Nucleated RBC % /100WBC ESR (0-20) mm/Hr Absolute Retic (0.020-0.110) 10^6/uL Sodium (135-145) mmol/L Potassium (3.5-5.0) mmol/L Chloride (101-111) mmol/L Carbon Dioxide (21-32) mmol/L Anion Gap (6-13) BUN (6-20) mg/dL Creatinine (0.6-1.2) mg/dL Estimated GFR (MDRD) (>89) Glucose (70-100) mg/dL POC Whole Bld Glucose (70 - 100) mg/dL Estimat Average Glucose 177 H (70-100) mg/dL Hemoglobin A1c % 7.8 H (4.27-6.07) % Lactic Acid (0.5-2.2) mmol/L Calcium (8.5-10.3) mg/dL Phosphorus 3.2 (2.5-4.6) mg/dL Magnesium 1.8 (1.7-2.8) mg/dL Iron (45-182) ug/dL TIBC (250-450) ug/dL % Saturation (20-50) % Transferrin (180-329) mg/dL Ferritin (23.9-336.2) ng/mL Total Bilirubin (0.2-1.0) mg/dL AST (10-42) IU/L ALT (10-60) IU/L Alkaline Phosphatase (42-121) IU/L Lactate Dehydrogenase 139 (91-225) IU/L Troponin I High Sens (2.3-19.7) ng/L C-Reactive Protein (0-1.0) mg/dL B-Natriuretic Peptide (5-100) pg/mL Total Protein (6.7-8.2) g/dL Albumin (3.2-5.5) g/dL Globulin (2.1-4.2) g/dL Albumin/Globulin Ratio (1.0-2.2) Lipase (22-51) U/L Vitamin B12 (180-914) pg/mL Urine Color Urine Clarity (CLEAR) Urine pH (5.0-7.5) PH Ur Specific [place] (1.002-1.030) Urine Protein (NEGATIVE) mg/dL Urine Glucose (UA) (NEGATIVE) mg/dL Urine Ketones (NEGATIVE) mg/dL Urine Occult Blood (NEGATIVE) Urine Nitrite (NEGATIVE) Urine Bilirubin (NEGATIVE) Urine Urobilinogen (NORMAL) E.U./dL Ur Leukocyte Esterase (NEGATIVE) Urine RBC (0-5) /HPF Urine WBC (0-3) /HPF Ur Squamous Epith Cells (<= Few) Urine Bacteria (None Seen) /HPF Urine Casts /LPF Ur Microscopic Review Urine Culture Comments Nasal Adenovirus (PCR) Nasal B. parapertussis DNA (PCR) Nasal Coronavir 229E PCR Nasal Coronavir HKU1 PCR Nasal Coronavir NL63 PCR Nasal Coronavir OC43 PCR Nasal Enterovir/Rhinovir PCR Nasal Influenza B PCR Nasal Influenza A PCR Nasal Parainfluen 1 PCR Nasal Parainfluen 2 PCR Nasal Parainfluen 3 PCR Nasal Parainfluen 4 PCR Nasal RSV (PCR) Nasal B.pertussis DNA PCR Nasal C.pneumoniae (PCR) Raghavendra Human Metapneumo PCR Nasal M.pneumoniae (PCR) Nasal SARS-CoV-2 (PCR) Urine Opiates Screen (NEGATIVE) Ur Oxycodone Screen (NEGATIVE) Urine Methadone Screen (NEGATIVE) Ur Propoxyphene Screen (NEGATIVE) Ur Barbiturates Screen (NEGATIVE) Ur Tricyclics Screen (NEGATIVE) Ur Phencyclidine Scrn (NEGATIVE) Ur Amphetamine Screen (NEGATIVE) U Methamphetamines Scrn (NEGATIVE) U Benzodiazepines Scrn (NEGATIVE) Urine Cocaine Screen (NEGATIVE) U Cannabinoids Screen (NEGATIVE) 05/16/20 05/16/20 05/16/20 Range/Units 12:57 12:57 12:57 WBC (4.8-10.8) x10^3/uL RBC 3.50 L (4.70-6.10) 10^6/uL Hgb (14.0-18.0) g/dL Hct (42.0-52.0) % MCV (80.0-94.0) fL MCH (27.0-31.0) pg MCHC (32.0-36.0) g/dL RDW (12.0-15.0) % Plt Count (130-450) 10^3/uL MPV (7.4-11.4) fL Reticulocyte % (Auto) 2.29 (0.5-2.3) % Neut # (Auto) (1.5-6.6) 10^3/uL Lymph # (Auto) (1.5-3.5) 10^3/uL [place] # (Auto) (0.0-1.0) 10^3/uL Eos # (Auto) (0.0-0.7) 10^3/uL Baso # (Auto) (0.0-0.1) 10^3/uL Absolute Nucleated RBC x10^3/uL Nucleated RBC % /100WBC ESR (0-20) mm/Hr Absolute Retic 0.080 (0.020-0.110) 10^6/uL Sodium (135-145) mmol/L Potassium (3.5-5.0) mmol/L Chloride (101-111) mmol/L Carbon Dioxide (21-32) mmol/L Anion Gap (6-13) BUN (6-20) mg/dL Creatinine (0.6-1.2) mg/dL Estimated GFR (MDRD) (>89) Glucose (70-100) mg/dL POC Whole Bld Glucose (70 - 100) mg/dL Estimat Average Glucose (70-100) mg/dL Hemoglobin A1c % (4.27-6.07) % Lactic Acid (0.5-2.2) mmol/L Calcium (8.5-10.3) mg/dL Phosphorus (2.5-4.6) mg/dL Magnesium (1.7-2.8) mg/dL Iron 20 L (45-182) ug/dL TIBC 225 L (250-450) ug/dL % Saturation 9 L (20-50) % Transferrin 161 L (180-329) mg/dL Ferritin 336.9 H (23.9-336.2) ng/mL Total Bilirubin (0.2-1.0) mg/dL AST (10-42) IU/L ALT (10-60) IU/L Alkaline Phosphatase (42-121) IU/L Lactate Dehydrogenase (91-225) IU/L Troponin I High Sens (2.3-19.7) ng/L C-Reactive Protein (0-1.0) mg/dL B-Natriuretic Peptide (5-100) pg/mL Total Protein (6.7-8.2) g/dL Albumin (3.2-5.5) g/dL Globulin (2.1-4.2) g/dL Albumin/Globulin Ratio (1.0-2.2) Lipase (22-51) U/L Vitamin B12 252 (180-914) pg/mL Urine Color Urine Clarity (CLEAR) Urine pH (5.0-7.5) PH Ur Specific [place] (1.002-1.030) Urine Protein (NEGATIVE) mg/dL Urine Glucose (UA) (NEGATIVE) mg/dL Urine Ketones (NEGATIVE) mg/dL Urine Occult Blood (NEGATIVE) Urine Nitrite (NEGATIVE) Urine Bilirubin (NEGATIVE) Urine Urobilinogen (NORMAL) E.U./dL Ur Leukocyte Esterase (NEGATIVE) Urine RBC (0-5) /HPF Urine WBC (0-3) /HPF Ur Squamous Epith Cells (<= Few) Urine Bacteria (None Seen) /HPF Urine Casts /LPF Ur Microscopic Review Urine Culture Comments Nasal Adenovirus (PCR) Nasal B. parapertussis DNA (PCR) Nasal Coronavir 229E PCR Nasal Coronavir HKU1 PCR Nasal Coronavir NL63 PCR Nasal Coronavir OC43 PCR Nasal Enterovir/Rhinovir PCR Nasal Influenza B PCR Nasal Influenza A PCR Nasal Parainfluen 1 PCR Nasal Parainfluen 2 PCR Nasal Parainfluen 3 PCR Nasal Parainfluen 4 PCR Nasal RSV (PCR) Nasal B.pertussis DNA PCR Nasal C.pneumoniae (PCR) Raghavendra Human Metapneumo PCR Nasal M.pneumoniae (PCR) Nasal SARS-CoV-2 (PCR) Urine Opiates Screen (NEGATIVE) Ur Oxycodone Screen (NEGATIVE) Urine Methadone Screen (NEGATIVE) Ur Propoxyphene Screen (NEGATIVE) Ur Barbiturates Screen (NEGATIVE) Ur Tricyclics Screen (NEGATIVE) Ur Phencyclidine Scrn (NEGATIVE) Ur Amphetamine Screen (NEGATIVE) U Methamphetamines Scrn (NEGATIVE) U Benzodiazepines Scrn (NEGATIVE) Urine Cocaine Screen (NEGATIVE) U Cannabinoids Screen (NEGATIVE) 05/16/20 05/16/20 05/16/20 Range/Units 12:57 12:57 12:57 WBC (4.8-10.8) x10^3/uL RBC (4.70-6.10) 10^6/uL Hgb (14.0-18.0) g/dL Hct (42.0-52.0) % MCV (80.0-94.0) fL MCH (27.0-31.0) pg MCHC (32.0-36.0) g/dL RDW (12.0-15.0) % Plt Count (130-450) 10^3/uL MPV (7.4-11.4) fL Reticulocyte % (Auto) (0.5-2.3) % Neut # (Auto) (1.5-6.6) 10^3/uL Lymph # (Auto) (1.5-3.5) 10^3/uL [place] # (Auto) (0.0-1.0) 10^3/uL Eos # (Auto) (0.0-0.7) 10^3/uL Baso # (Auto) (0.0-0.1) 10^3/uL Absolute Nucleated RBC x10^3/uL Nucleated RBC % /100WBC ESR (0-20) mm/Hr Absolute Retic (0.020-0.110) 10^6/uL Sodium 133 L (135-145) mmol/L Potassium 3.4 L (3.5-5.0) mmol/L Chloride 94 L (101-111) mmol/L Carbon Dioxide 23 (21-32) mmol/L Anion Gap 16.0 H (6-13) BUN 15 (6-20) mg/dL Creatinine 0.7 (0.6-1.2) mg/dL Estimated GFR (MDRD) 116 (>89) Glucose 284 H (70-100) mg/dL POC Whole Bld Glucose (70 - 100) mg/dL Estimat Average Glucose (70-100) mg/dL Hemoglobin A1c % (4.27-6.07) % Lactic Acid 1.9 (0.5-2.2) mmol/L Calcium 8.7 (8.5-10.3) mg/dL Phosphorus (2.5-4.6) mg/dL Magnesium (1.7-2.8) mg/dL Iron (45-182) ug/dL TIBC (250-450) ug/dL % Saturation (20-50) % Transferrin (180-329) mg/dL Ferritin (23.9-336.2) ng/mL Total Bilirubin 1.0 (0.2-1.0) mg/dL AST 25 (10-42) IU/L ALT 46 (10-60) IU/L Alkaline Phosphatase 121 (42-121) IU/L Lactate Dehydrogenase (91-225) IU/L Troponin I High Sens 3.8 (2.3-19.7) ng/L C-Reactive Protein 27.6 H (0-1.0) mg/dL B-Natriuretic Peptide (5-100) pg/mL Total Protein 6.6 L (6.7-8.2) g/dL Albumin 2.7 L (3.2-5.5) g/dL Globulin 3.9 (2.1-4.2) g/dL Albumin/Globulin Ratio 0.7 L (1.0-2.2) Lipase 17 L (22-51) U/L Vitamin B12 (180-914) pg/mL Urine Color Urine Clarity (CLEAR) Urine pH (5.0-7.5) PH Ur Specific [place] (1.002-1.030) Urine Protein (NEGATIVE) mg/dL Urine Glucose (UA) (NEGATIVE) mg/dL Urine Ketones (NEGATIVE) mg/dL Urine Occult Blood (NEGATIVE) Urine Nitrite (NEGATIVE) Urine Bilirubin (NEGATIVE) Urine Urobilinogen (NORMAL) E.U./dL Ur Leukocyte Esterase (NEGATIVE) Urine RBC (0-5) /HPF Urine WBC (0-3) /HPF Ur Squamous Epith Cells (<= Few) Urine Bacteria (None Seen) /HPF Urine Casts /LPF Ur Microscopic Review Urine Culture Comments Nasal Adenovirus (PCR) Nasal B. parapertussis DNA (PCR) Nasal Coronavir 229E PCR Nasal Coronavir HKU1 PCR Nasal Coronavir NL63 PCR Nasal Coronavir OC43 PCR Nasal Enterovir/Rhinovir PCR Nasal Influenza B PCR Nasal Influenza A PCR Nasal Parainfluen 1 PCR Nasal Parainfluen 2 PCR Nasal Parainfluen 3 PCR Nasal Parainfluen 4 PCR Nasal RSV (PCR) Nasal B.pertussis DNA PCR Nasal C.pneumoniae (PCR) Raghavendra Human Metapneumo PCR Nasal M.pneumoniae (PCR) Nasal SARS-CoV-2 (PCR) Urine Opiates Screen (NEGATIVE) Ur Oxycodone Screen (NEGATIVE) Urine Methadone Screen (NEGATIVE) Ur Propoxyphene Screen (NEGATIVE) Ur Barbiturates Screen (NEGATIVE) Ur Tricyclics Screen (NEGATIVE) Ur Phencyclidine Scrn (NEGATIVE) Ur Amphetamine Screen (NEGATIVE) U Methamphetamines Scrn (NEGATIVE) U Benzodiazepines Scrn (NEGATIVE) Urine Cocaine Screen (NEGATIVE) U Cannabinoids Screen (NEGATIVE) 05/16/20 05/16/20 Range/Units 12:57 12:42 WBC 11.2 H (4.8-10.8) x10^3/uL RBC 3.48 L (4.70-6.10) 10^6/uL Hgb 9.7 L (14.0-18.0) g/dL Hct 31.2 L (42.0-52.0) % MCV 89.7 (80.0-94.0) fL MCH 27.9 (27.0-31.0) pg MCHC 31.1 L (32.0-36.0) g/dL RDW 15.2 H (12.0-15.0) % Plt Count 435 (130-450) 10^3/uL MPV 9.8 (7.4-11.4) fL Reticulocyte % (Auto) (0.5-2.3) % Neut # (Auto) 9.9 H (1.5-6.6) 10^3/uL Lymph # (Auto) 0.5 L (1.5-3.5) 10^3/uL [place] # (Auto) 0.7 (0.0-1.0) 10^3/uL Eos # (Auto) 0.0 (0.0-0.7) 10^3/uL Baso # (Auto) 0.0 (0.0-0.1) 10^3/uL Absolute Nucleated RBC 0.00 x10^3/uL Nucleated RBC % 0.0 /100WBC ESR > 140 H (0-20) mm/Hr Absolute Retic (0.020-0.110) 10^6/uL Sodium (135-145) mmol/L Potassium (3.5-5.0) mmol/L Chloride (101-111) mmol/L Carbon Dioxide (21-32) mmol/L Anion Gap (6-13) BUN (6-20) mg/dL Creatinine (0.6-1.2) mg/dL Estimated GFR (MDRD) (>89) Glucose (70-100) mg/dL POC Whole Bld Glucose (70 - 100) mg/dL Estimat Average Glucose (70-100) mg/dL Hemoglobin A1c % (4.27-6.07) % Lactic Acid (0.5-2.2) mmol/L Calcium (8.5-10.3) mg/dL Phosphorus (2.5-4.6) mg/dL Magnesium (1.7-2.8) mg/dL Iron (45-182) ug/dL TIBC (250-450) ug/dL % Saturation (20-50) % Transferrin (180-329) mg/dL Ferritin (23.9-336.2) ng/mL Total Bilirubin (0.2-1.0) mg/dL AST (10-42) IU/L ALT (10-60) IU/L Alkaline Phosphatase (42-121) IU/L Lactate Dehydrogenase (91-225) IU/L Troponin I High Sens (2.3-19.7) ng/L C-Reactive Protein (0-1.0) mg/dL B-Natriuretic Peptide (5-100) pg/mL Total Protein (6.7-8.2) g/dL Albumin (3.2-5.5) g/dL Globulin (2.1-4.2) g/dL Albumin/Globulin Ratio (1.0-2.2) Lipase (22-51) U/L Vitamin B12 (180-914) pg/mL Urine Color Urine Clarity (CLEAR) Urine pH (5.0-7.5) PH Ur Specific [place] (1.002-1.030) Urine Protein (NEGATIVE) mg/dL Urine Glucose (UA) (NEGATIVE) mg/dL Urine Ketones (NEGATIVE) mg/dL Urine Occult Blood (NEGATIVE) Urine Nitrite (NEGATIVE) Urine Bilirubin (NEGATIVE) Urine Urobilinogen (NORMAL) E.U./dL Ur Leukocyte Esterase (NEGATIVE) Urine RBC (0-5) /HPF Urine WBC (0-3) /HPF Ur Squamous Epith Cells (<= Few) Urine Bacteria (None Seen) /HPF Urine Casts /LPF Ur Microscopic Review Urine Culture Comments Nasal Adenovirus (PCR) Nasal B. parapertussis DNA (PCR) Nasal Coronavir 229E PCR Nasal Coronavir HKU1 PCR Nasal Coronavir NL63 PCR Nasal Coronavir OC43 PCR Nasal Enterovir/Rhinovir PCR Nasal Influenza B PCR Nasal Influenza A PCR Nasal Parainfluen 1 PCR Nasal Parainfluen 2 PCR Nasal Parainfluen 3 PCR Nasal Parainfluen 4 PCR Nasal RSV (PCR) Nasal B.pertussis DNA PCR Nasal C.pneumoniae (PCR) Raghavendra Human Metapneumo PCR Nasal M.pneumoniae (PCR) Nasal SARS-CoV-2 (PCR) Urine Opiates Screen (NEGATIVE) Ur Oxycodone Screen (NEGATIVE) Urine Methadone Screen (NEGATIVE) Ur Propoxyphene Screen (NEGATIVE) Ur Barbiturates Screen (NEGATIVE) Ur Tricyclics Screen (NEGATIVE) Ur Phencyclidine Scrn (NEGATIVE) Ur Amphetamine Screen (NEGATIVE) U Methamphetamines Scrn (NEGATIVE) U Benzodiazepines Scrn (NEGATIVE) Urine Cocaine Screen (NEGATIVE) U Cannabinoids Screen (NEGATIVE) ABX Reporting Has patient been on IV antibiotics over the past 48 hours?: Yes Sepsis Event Note (H) - Evaluation Current Stage of Sepsis: Sepsis - Sepsis Criteria Sepsis Criteria: Recorded Heart Rate greater than 90 bpm, WBC count greater than 12,000 or less than 4000 Assessment/Plan - Problem List (1) Bacteremia Impression: Patient 2 tube with 3/4 blood culture show gram-positive bacteremia in the culture. Patient is in the vancomycin, we will continue. Final culture and sensitivity study is still pending. Echo did not specify vegetation in valve. Dependent which kind of bacterial, we wound repeat blood culture as needed (2) new onset systolic heart failure, [place] III/IV Patient's Echo show 35 to 40% of EF. Patient does not know he had heart failure in the before. Clinically patient show shortness of breathing in the rest, Patient's BNP increases. We will give the patient diuretics Lasix, metoprolol, resume home lisinopril, We will also check lipid panel. (3) Sepsis Conclusion/Plan: 05/17 Patient left anterior chest erythema is a slightly reduce. Patient WBC is still 11.2, but CRP is trending down. But the patient still had tachycardia. We will continue antibiotics vancomycin, Laboratory and vital signs monitor patient. Patient has elevated WBC, tachycardia, tachypnea, And patient has cellulitis on left anterior chest. Patient also had significantly elevated CRP and ESR. But lactic acid is in the normal range. We will treat antibiotics with Ancef and vancomycin now. Follow-up with blood culture. Patient has history of uncontrolled diabetic as his risk factor. Continue intravenous IV fluids. (4) Cellulitis of chest wall Conclusion/Plan: 05/17 Patient left anterior chest erythema is a slightly reduce, continue antibiotics Patient has erythema from left neck to anterior chest below the shoulder. Patient can left his left arm. There is no erythema or swelling around left shoulder. We will treat antibiotics, continue check CRP and ESR and lab monitor, continue IVF. (5) Diabetes Conclusion/Plan: 129, A1c is 7.8, We will continue Lantus, slide scale Patient did not take insulin at home, he take 2 p.o. medication for his diabetic. But his glucose has 284,We explained patient we will use insulin in hospital instead of his PO medication patient understand. Sliding scale, check A1c, continue hypoglycemia protocol (6) Shortness of breath Conclusion/Plan: 05/17, Patient still report shortness of breathing, Chest x-ray show decreased lung volume. Patient was found to have acute systolic heart failure, it is likely the cause. We will start the patient with diuretics, Start with beta block, Supplemental oxygen as needed, Start with Xopenex as needed based on patient mobility obesity. Patient reported shortness of breathing at his rest and orthopnea. Patient reported this is new for him to have short of breathing in the rest. Patient also reported this could be contributed to his anxiety. Patient has a BMI 53 Which he also could be contributed to his shortness of breathing. CTA of the chest did not show PE or pulmonary process. We will check echo, out of bed, we might order PT/OT for pt (7) Pulmonary nodule Conclusion/Plan: CTA of the chest show patient has a 5 mm nodule in the right middle lobe. Patient has smoking history but 25 years ago. Advised patient every 6 months to have imaging study to monitor. Patient verbally state he understand (8) Morbid obesity Conclusion/Plan: Patient has 170 kg of the weight and BMI 53.3, And history of diabetic, advise pt loss of weight. (9) Tachycardia Conclusion/Plan: 129,Patient still show sinus tachycardia, Feel shortness of breathing, Also patient has an acute systolic heart failure, We will give the patient metoprol ol, Continue air sampling and monitoring patient. Patient has a sinus tach around 120, patient denies chest pain, troponin is negative for ischemia. It is likely caused by patient infection and sepsis response. We will continue treated with antibiotics, intravenous IV fluids, continue air sampling and monitoring patient (10) Nodule of skin of neck Conclusion/Plan: 05/17, Ultrasound of the neck basically undetermined, Close monitor patient to see if the is reduced tenderness in nodule after treated for infection, if not, will order CT of neck to feature the nodule. Patient has a tenderness nodule at the left inferior neck, it can be reactive lymph node, We will order ultrasound to monitor.
[2020-05-17] MEDS ORDERED: INSULIN ASPART 300 UNIT/3 ML PEN SUBQ ONE (14:16)
[2020-05-17] MEDS: METOPROLOL TARTRATE 25 MG TABLET PO SCH ×2 (14:24→20:39)
[2020-05-17 16:28] LABS: ABG PCO2 32 mmHg (34-45); ABG PH 7.49 (7.35-7.45)
[2020-05-17 16:29] LABS: ABG BASE EXCESS 1.2 mmol/L (-2.0-3.0); ABG HCO3 24.1 mmol/L (22.0-26.0); ABG OXYGEN SATURATION 93 % (94-98); ABG PO2 67 mmHg (80-100); ABG TCO2 25.1 MMOL/L (21.0-29.0); ALLEN TEST POSITIVE
[2020-05-17] MEDS: GABAPENTIN 300 MG CAPSULE PO SCH (20:39)
[2020-05-17] MEDS ORDERED: INSULIN GLARGINE 300 UNIT/3 ML PEN SUBQ SCH (21:00)
[2020-05-18] MEDS: SODIUM CHLORIDE FLUSH 0.9% 10 ML SYRINGE IVP SCH ×4 (01:42→23:47)
[2020-05-18] MEDS: VANCOMYCIN INJ 1 GM, VANCOMYCIN INJ 500 MG in SODIUM CHLORIDE 0.9% 500 ML IV SCH ×2 (01:43→10:17)
[2020-05-18 04:30] LABS: BASOPHILS % (AUTO) 0.3 %; EOSINOPHILS % (AUTO) 0.1 %; HGB - HEMOGLOBIN 9.9 g/dL (14.0-18.0); LYMPHOCYTES # (AUTO) 0.9 10^3/uL (1.5-3.5); LYMPHOCYTES % (AUTO) 7.2 %; MEAN CORPUSCULAR HEMOGLOBIN 28.1 pg (27.0-31.0); MEAN CORPUSCULAR HGB CONC 31.6 g/dL (32.0-36.0); MEAN CORPUSCULAR VOLUME 88.9 fL (80.0-94.0); MEAN PLATELET VOLUME 9.5 fL (7.4-11.4); MONOCYTES % (AUTO) 7.2 %; NEUTROPHILS % (AUTO) 83.8 %; PLT - PLATELET COUNT 477 10^3/uL (130-450); RED BLOOD COUNT 3.52 10^6/uL (4.70-6.10); RED CELL DISTRIBUTION WIDTH 15.6 % (12.0-15.0); WHITE BLOOD COUNT 13.1 x10^3/uL (4.8-10.8)
[2020-05-18 04:53] LABS: CHOL/HDL RATIO 4.3 (<5.0); CHOLESTEROL 116 mg/dL; HDL CHOLESTEROL 27 mg/dL; LDL CHOLESTEROL,CALCULATED 76 mg/dL; LDL/HDL RATIO 2.8 (<3.6); VLDL CHOLESTEROL 13 mg/dL
[2020-05-18 04:54] LABS: CALCIUM 8.4 mg/dL (8.5-10.3); CREATININE 0.7 mg/dL (0.6-1.2); CRP - C-REACTIVE PROTEIN 17.6 mg/dL (0-1.0)
[2020-05-18] MEDS: FUROSEMIDE 20 MG/2 ML VIAL IVP SCH (05:43)
[2020-05-18] MEDS ORDERED: POTASSIUM CHLORIDE 20 MEQ TABLET PO ONE (07:59)
[2020-05-18] MEDS: SACCHAROMYCES BOULARDII 250 MG CAPSULE PO SCH ×2 (08:05→17:00)
[2020-05-18] MEDS: FERROUS SULFATE 325 MG TABLET PO SCH ×2 (08:06→17:00)
[2020-05-18] MEDS: INSULIN ASPART 300 UNIT/3 ML PEN SUBQ SCH ×4 (08:06→20:22)
[2020-05-18] MEDS: INSULIN GLARGINE 300 UNIT/3 ML PEN SUBQ SCH (08:06)
[2020-05-18] MEDS ORDERED: METOPROLOL TARTRATE 50 MG TABLET PO SCH (09:00)
[2020-05-18 10:00] LABS: VANCOMYCIN,TROUGH 14.5 ug/mL (10.0-20.0)
[2020-05-18] MEDS: lisinopriL 5 MG TABLET PO SCH (10:10)
[2020-05-18] MEDS: ENOXAPARIN 40 MG/0.4 ML SYRINGE SUBQ SCH (10:10)
--- NOTE | 2020-05-18 10:36 | PROVIDER PROGRESS NOTE ---
Subjective - Prog Note Date Prog Note Date: 05/18/20 - Subjective Pt reports feeling: Improved Subjective: Patient reported he feels much better for his shortness of breathing, He also reported no pain for him to ROM his neck, and no tenderness. Current Medications - Current Medications Current Medications: Active Medications Acetaminophen (Acetaminophen 325 Mg Tablet) 650 mg PO Q4HR PRN PRN Reason: Pain 1 to 4 Last Admin: 05/18/20 01:04 Dose: 650 mg Documented by: Enoxaparin Sodium (Enoxaparin 40 Mg/0.4 Ml Syringe) 40 mg SUBQ DAILY [facility] Last Admin: 05/18/20 10:10 Dose: 40 mg Documented by: Ferrous Sulfate (Ferrous Sulfate 325 Mg Tablet) 325 mg PO BIDWM [facility] Last Admin: 05/18/20 08:06 Dose: 325 mg Documented by: Furosemide (Furosemide 40 Mg/4 Ml Vial) 40 mg IVP BIDDIURETIC DEEPTHI Gabapentin (Gabapentin 300 Mg Capsule) 300 mg PO QPM [facility] Last Admin: 05/17/20 20:39 Dose: 300 mg Documented by: Vancomycin HCl 1 gm/Vancomycin HCl 500 mg/ Sodium Chloride 500 mls @ 250 mls/hr IV Q8H [facility] Last Admin: 05/18/20 10:17 Dose: 250 mls/hr Documented by: Insulin Aspart (Insulin Aspart 300 Unit/3 Ml Pen) 2 - 10 unit SUBQ 0800,1200,1700,2100 [facility]; Protocol Last Admin: 05/18/20 08:06 Dose: 4 unit Documented by: Insulin Glargine (Insulin Glargine 300 Unit/3 Ml Pen) 10 unit SUBQ QDBREAKFAST [facility] Last Admin: 05/18/20 08:06 Dose: 10 unit Documented by: Insulin Glargine (Insulin Glargine 300 Unit/3 Ml Pen) 20 unit SUBQ QPM [facility] Last Admin: 05/17/20 20:43 Dose: 20 unit Documented by: Levalbuterol HCl (Levalbuterol 1.25 Mg/3 Ml Neb) 1.25 mg INH RTQ4H PRN PRN Reason: Shortness of Air/Wheezing Lisinopril (Lisinopril 5 Mg Tablet) 5 mg PO DAILY [facility] Last Admin: 05/18/20 10:10 Dose: 5 mg Documented by: Methocarbamol (Methocarbamol 500 Mg Tablet) 750 mg PO TID PRN PRN Reason: Spasms Metoprolol Tartrate (Metoprolol Tartrate 50 Mg Tablet) 50 mg PO BID [facility] Last Admin: 05/18/20 08:05 Dose: 50 mg Documented by: Ondansetron HCl (Ondansetron Odt 4 Mg Tablet) 4 mg TL Q6HR PRN PRN Reason: Nausea / Vomiting Ondansetron HCl (Ondansetron 4 Mg/2 Ml Vial) 4 mg IVP Q6HR PRN PRN Reason: Nausea / Vomiting Oxycodone HCl (Oxycodone 5 Mg Tablet) 5 mg PO Q4HR PRN PRN Reason: Pain 5 to 7 Saccharomyces Boulardii (Saccharomyces Boulardii 250 Mg Capsule) 500 mg PO BIDWM [facility] Last Admin: 05/18/20 08:05 Dose: 500 mg Documented by: Sodium Chloride (Sodium Chloride Flush 0.9% 10 Ml Syringe) 10 ml IVP PRN PRN PRN Reason: NEEDED PER PROVIDER ORDERS Last Admin: 05/18/20 01:42 Dose: 10 ml Documented by: Sodium Chloride (Sodium Chloride Flush 0.9% 10 Ml Syringe) 10 ml IVP 0100,0900,1700 [facility] Last Admin: 05/18/20 10:11 Dose: 10 ml Documented by: Bromocriptine Mesylate [Parlodel] 2.5 mg PO TID 05/16/20 Gabapentin [Neurontin] 300 mg PO QPM 05/16/20 Glipizide [Glipizide Xl] 10 mg PO DAILYWM 05/16/20 Lisinopril [Prinivil] 5 mg PO DAILY 05/16/20 Methocarbamol [Robaxin-750] 750 mg PO TID PRN 05/16/20 Naproxen [EC-Naproxen] 500 mg PO BID 05/16/20 metFORMIN [Glucophage] 1,000 mg PO BIDWM 05/16/20 metFORMIN [Glucophage] 500 mg PO QDLUNCH 05/16/20 Objective - Vital Signs/Intake & Output Vital Signs: Vital Signs x48h Temp Pulse Resp BP BP Pulse Ox 05/18/20 08:05 135/75 H 05/18/20 07:46 36.6 C 105 H 20 121/79 98 05/18/20 03:15 36.8 C 118 H 20 117/72 96 Intake & Output: Intake & Output 05/15/20 05/16/20 05/17/20 05/18/20 23:59 23:59 23:59 23:59 Intake Total 3926.667 3955 1230 Output Total 737 864 6624 Balance 3626.667 3755 130 - Objective General Appearance: positive: No acute distress, Alert. negative: Lethargic Eyes Bilateral: positive: Normal inspection, PERRL, No lid inflammation ENT: positive: No signs of dehydration. negative: Purulent nasal drainage, Pharyngeal erythema, Oral lesions, Dry mucous membranes Neck: positive: Thyroid nml, Trachea midline, Other (There is no tenderness or pain on palpitation on left inferior neck. erythema of left neck and left chest is reduced.). negative: Thyromegaly, Stiff neck, Tracheal deviation Respiratory: positive: Chest non-tender, No respiratory distress. negative: Wheezes, Rales, Rhonchi Cardiovascular: positive: Regular rate & rhythm, No murmur, Tachycardia. negative: Bradycardia, Systolic murmur, Diastolic murmur Peripheral Pulses: 2+ Radial (R), 2+ Radial (L) Abdomen: positive: Non-tender, Nml bowel sounds, No distention. negative: Tenderness, Guarding, Rebound Back: positive: Nml inspection Skin: positive: Warm, Dry. negative: Cyanosis, Diaphoresis, Pallor, Decubitus, Laceration (cm) Extremities: positive: Non-tender, Full ROM, Nml appearance. negative: Calf tenderness Neurologic/Psychiatric: positive: Oriented x3, Motor nml, Sensation nml, Mood/affect nml. negative: Weakness, Sensory loss, Facial droop, Slurred/abnml speech, Depressed mood/affect - Lab Results Fish Bones: 05/18/20 04:10 05/18/20 04:10 Other Labs: Lab Results x24hrs 05/18/20 05/18/20 05/18/20 Range/Units 09:30 07:45 04:10 WBC (4.8-10.8) x10^3/uL RBC (4.70-6.10) 10^6/uL Hgb (14.0-18.0) g/dL Hct (42.0-52.0) % MCV (80.0-94.0) fL MCH (27.0-31.0) pg MCHC (32.0-36.0) g/dL RDW (12.0-15.0) % Plt Count (130-450) 10^3/uL MPV (7.4-11.4) fL Neut # (Auto) (1.5-6.6) 10^3/uL Lymph # (Auto) (1.5-3.5) 10^3/uL [place] # (Auto) (0.0-1.0) 10^3/uL Eos # (Auto) (0.0-0.7) 10^3/uL Baso # (Auto) (0.0-0.1) 10^3/uL Absolute Nucleated RBC x10^3/uL Nucleated RBC % /100WBC Bld Gas Analysis Time Sample Site ABG pH (7.35-7.45) ABG pCO2 (34-45) mmHg ABG pO2 (80-100) mmHg ABG HCO3 (22.0-26.0) mmol/L ABG Total CO2 (21.0-29.0) MMOL/L ABG O2 Saturation (94-98) % ABG Base Excess (-2.0-3.0) mmol/L Wyatt Test O2 Delivery Device O2 Liters/Min LPM Sodium (135-145) mmol/L Potassium (3.5-5.0) mmol/L Chloride (101-111) mmol/L Carbon Dioxide (21-32) mmol/L Anion Gap (6-13) BUN (6-20) mg/dL Creatinine (0.6-1.2) mg/dL Estimated GFR (MDRD) (>89) Glucose (70-100) mg/dL POC Whole Bld Glucose 189 H (70 - 100) mg/dL Calcium (8.5-10.3) mg/dL Troponin I High Sens (2.3-19.7) ng/L C-Reactive Protein (0-1.0) mg/dL B-Natriuretic Peptide 1376 H (5-100) pg/mL Triglycerides ( - 149) mg/dL Cholesterol ( - 199) mg/dL LDL Cholesterol, Calc ( - 129) mg/dL VLDL Cholesterol mg/dL HDL Cholesterol (60 - ) mg/dL LDL/HDL Ratio (<3.6) Cholesterol/HDL Ratio (<5.0) TSH (0.34-5.60) uIU/mL Last Dose Date Not Reportable Last Dose Time Not Reportable Vancomycin Trough 14.5 (10.0-20.0) ug/mL 05/18/20 05/18/20 05/18/20 Range/Units 04:10 04:10 04:10 WBC 13.1 H (4.8-10.8) x10^3/uL RBC 3.52 L (4.70-6.10) 10^6/uL Hgb 9.9 L (14.0-18.0) g/dL Hct 31.3 L (42.0-52.0) % MCV 88.9 (80.0-94.0) fL MCH 28.1 (27.0-31.0) pg MCHC 31.6 L (32.0-36.0) g/dL RDW 15.6 H (12.0-15.0) % Plt Count 477 H (130-450) 10^3/uL MPV 9.5 (7.4-11.4) fL Neut # (Auto) 11.0 H (1.5-6.6) 10^3/uL Lymph # (Auto) 0.9 L (1.5-3.5) 10^3/uL [place] # (Auto) 1.0 (0.0-1.0) 10^3/uL Eos # (Auto) 0.0 (0.0-0.7) 10^3/uL Baso # (Auto) 0.0 (0.0-0.1) 10^3/uL Absolute Nucleated RBC 0.00 x10^3/uL Nucleated RBC % 0.0 /100WBC Bld Gas Analysis Time Sample Site ABG pH (7.35-7.45) ABG pCO2 (34-45) mmHg ABG pO2 (80-100) mmHg ABG HCO3 (22.0-26.0) mmol/L ABG Total CO2 (21.0-29.0) MMOL/L ABG O2 Saturation (94-98) % ABG Base Excess (-2.0-3.0) mmol/L Wyatt Test O2 Delivery Device O2 Liters/Min LPM Sodium 134 L (135-145) mmol/L Potassium 3.4 L (3.5-5.0) mmol/L Chloride 97 L (101-111) mmol/L Carbon Dioxide 25 (21-32) mmol/L Anion Gap 12.0 (6-13) BUN 17 (6-20) mg/dL Creatinine 0.7 (0.6-1.2) mg/dL Estimated GFR (MDRD) 116 (>89) Glucose 193 H (70-100) mg/dL POC Whole Bld Glucose (70 - 100) mg/dL Calcium 8.4 L (8.5-10.3) mg/dL Troponin I High Sens (2.3-19.7) ng/L C-Reactive Protein 17.6 H (0-1.0) mg/dL B-Natriuretic Peptide (5-100) pg/mL Triglycerides 67 ( - 149) mg/dL Cholesterol 116 ( - 199) mg/dL LDL Cholesterol, Calc 76 ( - 129) mg/dL VLDL Cholesterol 13 mg/dL HDL Cholesterol 27 L (60 - ) mg/dL LDL/HDL Ratio 2.8 (<3.6) Cholesterol/HDL Ratio 4.3 (<5.0) TSH (0.34-5.60) uIU/mL Last Dose Date Last Dose Time Vancomycin Trough (10.0-20.0) ug/mL 05/17/20 05/17/20 05/17/20 Range/Units 20:37 16:52 16:13 WBC (4.8-10.8) x10^3/uL RBC (4.70-6.10) 10^6/uL Hgb (14.0-18.0) g/dL Hct (42.0-52.0) % MCV (80.0-94.0) fL MCH (27.0-31.0) pg MCHC (32.0-36.0) g/dL RDW (12.0-15.0) % Plt Count (130-450) 10^3/uL MPV (7.4-11.4) fL Neut # (Auto) (1.5-6.6) 10^3/uL Lymph # (Auto) (1.5-3.5) 10^3/uL [place] # (Auto) (0.0-1.0) 10^3/uL Eos # (Auto) (0.0-0.7) 10^3/uL Baso # (Auto) (0.0-0.1) 10^3/uL Absolute Nucleated RBC x10^3/uL Nucleated RBC % /100WBC Bld Gas Analysis Time 1616 Sample Site RIGHT RADIAL ABG pH 7.49 H (7.35-7.45) ABG pCO2 32 L (34-45) mmHg ABG pO2 67 L (80-100) mmHg ABG HCO3 24.1 (22.0-26.0) mmol/L ABG Total CO2 25.1 (21.0-29.0) MMOL/L ABG O2 Saturation 93 L (94-98) % ABG Base Excess 1.2 (-2.0-3.0) mmol/L Wyatt Test POSITIVE O2 Delivery Device NASAL CANNULA O2 Liters/Min 2.00 LPM Sodium (135-145) mmol/L Potassium (3.5-5.0) mmol/L Chloride (101-111) mmol/L Carbon Dioxide (21-32) mmol/L Anion Gap (6-13) BUN (6-20) mg/dL Creatinine (0.6-1.2) mg/dL Estimated GFR (MDRD) (>89) Glucose (70-100) mg/dL POC Whole Bld Glucose 241 H 263 H (70 - 100) mg/dL Calcium (8.5-10.3) mg/dL Troponin I High Sens (2.3-19.7) ng/L C-Reactive Protein (0-1.0) mg/dL B-Natriuretic Peptide (5-100) pg/mL Triglycerides ( - 149) mg/dL Cholesterol ( - 199) mg/dL LDL Cholesterol, Calc ( - 129) mg/dL VLDL Cholesterol mg/dL HDL Cholesterol (60 - ) mg/dL LDL/HDL Ratio (<3.6) Cholesterol/HDL Ratio (<5.0) TSH (0.34-5.60) uIU/mL Last Dose Date Last Dose Time Vancomycin Trough (10.0-20.0) ug/mL 05/17/20 05/17/20 05/17/20 Range/Units 15:53 15:53 11:30 WBC (4.8-10.8) x10^3/uL RBC (4.70-6.10) 10^6/uL Hgb (14.0-18.0) g/dL Hct (42.0-52.0) % MCV (80.0-94.0) fL MCH (27.0-31.0) pg MCHC (32.0-36.0) g/dL RDW (12.0-15.0) % Plt Count (130-450) 10^3/uL MPV (7.4-11.4) fL Neut # (Auto) (1.5-6.6) 10^3/uL Lymph # (Auto) (1.5-3.5) 10^3/uL [place] # (Auto) (0.0-1.0) 10^3/uL Eos # (Auto) (0.0-0.7) 10^3/uL Baso # (Auto) (0.0-0.1) 10^3/uL Absolute Nucleated RBC x10^3/uL Nucleated RBC % /100WBC Bld Gas Analysis Time Sample Site ABG pH (7.35-7.45) ABG pCO2 (34-45) mmHg ABG pO2 (80-100) mmHg ABG HCO3 (22.0-26.0) mmol/L ABG Total CO2 (21.0-29.0) MMOL/L ABG O2 Saturation (94-98) % ABG Base Excess (-2.0-3.0) mmol/L Wyatt Test O2 Delivery Device O2 Liters/Min LPM Sodium (135-145) mmol/L Potassium (3.5-5.0) mmol/L Chloride (101-111) mmol/L Carbon Dioxide (21-32) mmol/L Anion Gap (6-13) BUN (6-20) mg/dL Creatinine (0.6-1.2) mg/dL Estimated GFR (MDRD) (>89) Glucose (70-100) mg/dL POC Whole Bld Glucose 306 H (70 - 100) mg/dL Calcium (8.5-10.3) mg/dL Troponin I High Sens 12.6 (2.3-19.7) ng/L C-Reactive Protein (0-1.0) mg/dL B-Natriuretic Peptide (5-100) pg/mL Triglycerides ( - 149) mg/dL Cholesterol ( - 199) mg/dL LDL Cholesterol, Calc ( - 129) mg/dL VLDL Cholesterol mg/dL HDL Cholesterol (60 - ) mg/dL LDL/HDL Ratio (<3.6) Cholesterol/HDL Ratio (<5.0) TSH 2.00 (0.34-5.60) uIU/mL Last Dose Date Last Dose Time Vancomycin Trough (10.0-20.0) ug/mL 05/17/20 Range/Units 04:40 WBC (4.8-10.8) x10^3/uL RBC (4.70-6.10) 10^6/uL Hgb (14.0-18.0) g/dL Hct (42.0-52.0) % MCV (80.0-94.0) fL MCH (27.0-31.0) pg MCHC (32.0-36.0) g/dL RDW (12.0-15.0) % Plt Count (130-450) 10^3/uL MPV (7.4-11.4) fL Neut # (Auto) (1.5-6.6) 10^3/uL Lymph # (Auto) (1.5-3.5) 10^3/uL [place] # (Auto) (0.0-1.0) 10^3/uL Eos # (Auto) (0.0-0.7) 10^3/uL Baso # (Auto) (0.0-0.1) 10^3/uL Absolute Nucleated RBC x10^3/uL Nucleated RBC % /100WBC Bld Gas Analysis Time Sample Site ABG pH (7.35-7.45) ABG pCO2 (34-45) mmHg ABG pO2 (80-100) mmHg ABG HCO3 (22.0-26.0) mmol/L ABG Total CO2 (21.0-29.0) MMOL/L ABG O2 Saturation (94-98) % ABG Base Excess (-2.0-3.0) mmol/L Wyatt Test O2 Delivery Device O2 Liters/Min LPM Sodium (135-145) mmol/L Potassium (3.5-5.0) mmol/L Chloride (101-111) mmol/L Carbon Dioxide (21-32) mmol/L Anion Gap (6-13) BUN (6-20) mg/dL Creatinine (0.6-1.2) mg/dL Estimated GFR (MDRD) (>89) Glucose (70-100) mg/dL POC Whole Bld Glucose (70 - 100) mg/dL Calcium (8.5-10.3) mg/dL Troponin I High Sens (2.3-19.7) ng/L C-Reactive Protein (0-1.0) mg/dL B-Natriuretic Peptide 779 H (5-100) pg/mL Triglycerides ( - 149) mg/dL Cholesterol ( - 199) mg/dL LDL Cholesterol, Calc ( - 129) mg/dL VLDL Cholesterol mg/dL HDL Cholesterol (60 - ) mg/dL LDL/HDL Ratio (<3.6) Cholesterol/HDL Ratio (<5.0) TSH (0.34-5.60) uIU/mL Last Dose Date Last Dose Time Vancomycin Trough (10.0-20.0) ug/mL ABX Reporting Has patient been on IV antibiotics over the past 48 hours?: Yes Sepsis Event Note (H) - Evaluation Current Stage of Sepsis: Sepsis - Sepsis Criteria Sepsis Criteria: Recorded Heart Rate greater than 90 bpm, WBC count greater than 12,000 or less than 4000 Assessment/Plan - Problem List (1) Bacteremia Impression: 05/18 Patient's CRP continue trending down, And patient feel much better. Patient had a spike lower degree fever on last night and WBC is slightly elevated maybe because of hemoconcentrated. Blood culture in two tubes show gram positive coccus but sensitivity study is still pending. We will continue vancomycin. Patient 2 tube with 3/4 blood culture show gram-positive bacteremia in the culture. Patient is in the vancomycin, we will continue. Final culture and sensitivity study is still pending. Echo did not specify vegetation in valve. Dependent which kind of bacterial, we wound repeat blood culture as needed (2) new onset systolic heart failure, [place] III/IV 1210,Patient feels much better for his shortness of breathing. Clinically patient does not present respiratory respiratory any more. ABGs on yesterday show slightly low PO2, Slightly hyperventilated and pH slightly elevated. Today patient had a 98% sats on 4 L oxygen, we will wean off to 2 L oxygen, hopefully wane off O2 as possible. But the patient BNP increases, However patient have bacteremia and spoke temperature, We will hold fluids restriction, Continue diuretics Lasix, Continue metoprolol and Lisinopril, Continue telemetry and vital signs monitor Patient's Echo show 35 to 40% of EF. Patient does not know he had heart failure in the before. Clinically patient show shortness of breathing in the rest, Patient's BNP increases. We will give the patient diuretics Lasix, metoprolol, resume home lisinopril, We will also check lipid panel. (3) Sepsis Conclusion/Plan: 05-18, Patient blood pressure is stable, respiratory status was improved, Per patient still had a spiked temperature last night, Blood culture is in the pending, We will continue intravenous antibiotics vancomycin, Continue laboratory and vital signs monitor patient closely. 05/17 Patient left anterior chest erythema is a slightly reduce. Patient WBC is still 11.2, but CRP is trending down. But the patient still had tachycardia. We will continue antibiotics vancomycin, Laboratory and vital signs monitor patient. Patient has elevated WBC, tachycardia, tachypnea, And patient has cellulitis on left anterior chest. Patient also had significantly elevated CRP and ESR. But lactic acid is in the normal range. We will treat antibiotics with Ancef and vancomycin now. Follow-up with blood culture. Patient has history of uncontrolled diabetic as his risk factor. Continue intravenous IV fluids. (4) Cellulitis of chest wall Conclusion/Plan: 05/18, Improved, erythema in the anterior chest wall is reduced, Neck tenderness is almost resolved. CRP continue trending down. Continue antibiotics vancomy millie, Continue oil laboratory analyst 05/17 Patient left anterior chest erythema is a slightly reduce, continue antibiotics Patient has erythema from left neck to anterior chest below the shoulder. Patien t can left his left arm. There is no erythema or swelling around left shoulder. We will treat antibiotics, continue check CRP and ESR and lab monitor, continue IVF. (5) Diabetes Conclusion/Plan: 1210, Patient's glucose level is better control, Continue Lantus, sliding scale insulin, Hypoglycemia protocol. 129, A1c is 7.8, We will continue Lantus, slide scale Patient did not take insulin at home, he take 2 p.o. medication for his diabetic. But his glucose has 284,We explained patient we will use insulin in hospital instead of his PO medication patient understand. Sliding scale, check A1c, continue hypoglycemia protocol (6) Shortness of breath Conclusion/Plan: 1210,Patient reported he feel much better for shortness of breathing, almost resolved. Continue diuretics. Continue supplement of oxygen as needed 05/17, Patient still report shortness of breathing, Chest x-ray show decreased lung volume. Patient was found to have acute systolic heart failure, it is likely the cause. We will start the patient with diuretics, Start with beta block, Supplemental oxygen as needed, Start with Xopenex as needed based on patient mobility obesity. Patient reported shortness of breathing at his rest and orthopnea. Patient reported this is new for him to have short of breathing in the rest. Patient also reported this could be contributed to his anxiety. Patient has a BMI 53 Which he also could be contributed to his shortness of breathing. CTA of the chest did not show PE or pulmonary process. We will check echo, out of bed, we might order PT/OT for pt (7) Pulmonary nodule Conclusion/Plan: CTA of the chest show patient has a 5 mm nodule in the right middle lobe. Syed collazo has smoking history but 25 years ago. Advised patient every 6 months to have imaging study to monitor. Patient verbally state he understand (8) Morbid obesity Conclusion/Plan: Patient has 170 kg of the weight and BMI 53.3, And history of diabetic, advise pt loss of weight. (9) Tachycardia Conclusion/Plan: 05-18 Significantly improved, his heart rate is 105 to the morning, Patient feeling much better. Continue metoprolol, Continue telemetry 129,Patient still show sinus tachycardia, Feel shortness of breathing, Also patient has an acute systolic heart failure, We will give the patient metoprolol, Continue oncology radiation physician patient. Patient has a sinus tach around 120, patient denies chest pain, troponin is negative for ischemia. It is likely caused by patient infection and sepsis response. We will continue treated with antibiotics, intravenous IV fluids, continue oncology radiation physician patient (10) Nodule of skin of neck Conclusion/Plan: 1210,Nodule in neck Is almost resolved. Patient can do full ROM of his neck without pain, It is likely a reactive lymph node. Continue antibiotics. 05/17, Ultrasound of the neck basically undetermined, Close monitor patient to see if the is reduced tenderness in nodule after treated for infection, if not, will order CT of neck to feature the nodule. Patient has a tenderness nodule at the left inferior neck, it can be reactive lymph node, We will order ultrasound to monitor.
[2020-05-18] MEDS ORDERED: INSULIN ASPART 300 UNIT/3 ML PEN SUBQ SCH (12:00)
[2020-05-18] MEDS: FUROSEMIDE 40 MG/4 ML VIAL IVP SCH (14:30)
--- NOTE | 2020-05-18 16:28 | ANESTHESIA PROCEDURE NOTE ---
Anesth Central Line Template - Central Line Central Line Preparation: Consent Obtained, Time out completed, Ultrasound used, Sterile prep and drape Central line location: Right Basilic Central line type: PICC Double Lumen Central line catheter tip site resides: Superior vena cava (SVC) Central line aftercare: Secured, Placement confirmed, No complications, Pt tolerated well Other Info/Details: Consent obtained. Right arm prepped with chlorohexadine. Full sterile drape, gown and gloves used. Time out completed. The right basilic vein was identified under ultrasound and accessed with 20G needle. Wire advanced with ease. Peel away sheath was inserted over the wire and the wire was removed. A 5FR double lumen PICC line was trimmed to 42 cm and inserted. Advanced until 0cm exposed. Both ports aspirate heme and flushed with ease. Chest xray shows tip in the SVC. Line secured. Patient tolerated well. OK to use PICC line.
--- NOTE | 2020-05-18 16:36 | XRAY Report ---
PROCEDURE: Chest for Line Placement INDICATIONS: New PICC line TECHNIQUE: One view of the chest was acquired. COMPARISON: 05/17/2020 FINDINGS: Surgical changes and devices: Right upper extremity PICC tip projects over the upper SVC. Lungs and pleura: No pleural effusions or pneumothorax. Lungs are clear. Mediastinum: Mediastinal contours appear normal. Heart size is normal. Bones and chest wall: No suspicious bony lesions. Overlying soft tissues appear unremarkable. IMPRESSION: Right upper extremity PICC is in appropriate position with distal tip projecting over the upper SVC. Reviewed by: Ervin Miller MD on 05/18/2020 4:35 PM PST Approved by: Ervin Miller MD on 05/18/2020 4:35 PM PST Station ID: [id number]
[2020-05-18] MEDS: VANCOMYCIN INJ 1.75 GM in SODIUM CHLORIDE 0.9% 500 ML IV SCH (17:01)
[2020-05-18] MEDS: METOPROLOL SUCCINATE 50 MG TABLET PO SCH (20:19)
[2020-05-18] MEDS: GABAPENTIN 300 MG CAPSULE PO SCH (20:19)
[2020-05-18] MEDS ORDERED: INSULIN GLARGINE 300 UNIT/3 ML PEN SUBQ SCH (21:00)
[2020-05-19] MEDS: VANCOMYCIN INJ 1.75 GM in SODIUM CHLORIDE 0.9% 500 ML IV SCH ×2 (00:34→08:44)
[2020-05-19 04:53] LABS: BASOPHILS # (AUTO) 0.1 10^3/uL (0.0-0.1); BASOPHILS % (AUTO) 0.5 %; EOSINOPHILS # (AUTO) 0.1 10^3/uL (0.0-0.7); EOSINOPHILS % (AUTO) 0.7 %; HGB - HEMOGLOBIN 9.4 g/dL (14.0-18.0); LYMPHOCYTES # (AUTO) 0.9 10^3/uL (1.5-3.5); LYMPHOCYTES % (AUTO) 7.3 %; MEAN CORPUSCULAR HGB CONC 31.1 g/dL (32.0-36.0); MEAN CORPUSCULAR VOLUME 89.9 fL (80.0-94.0); MEAN PLATELET VOLUME 9.7 fL (7.4-11.4); MONOCYTES # (AUTO) 0.9 10^3/uL (0.0-1.0); MONOCYTES % (AUTO) 7.1 %; NEUTROPHILS # (AUTO) 9.9 10^3/uL (1.5-6.6); NEUTROPHILS % (AUTO) 82.3 %; PLT - PLATELET COUNT 437 10^3/uL (130-450); RED BLOOD COUNT 3.36 10^6/uL (4.70-6.10); RED CELL DISTRIBUTION WIDTH 15.4 % (12.0-15.0)
[2020-05-19 05:09] LABS: CALCIUM 8.1 mg/dL (8.5-10.3); CREATININE 0.6 mg/dL (0.6-1.2); CRP - C-REACTIVE PROTEIN 10.1 mg/dL (0-1.0)
[2020-05-19] MEDS: FUROSEMIDE 40 MG/4 ML VIAL IVP SCH (05:17)
[2020-05-19] MEDS ORDERED: INSULIN GLARGINE 300 UNIT/3 ML PEN SUBQ SCH (08:00)
[2020-05-19] MEDS: METOPROLOL SUCCINATE 50 MG TABLET PO SCH (08:26)
[2020-05-19] MEDS: lisinopriL 5 MG TABLET PO SCH (08:26)
[2020-05-19] MEDS: FERROUS SULFATE 325 MG TABLET PO SCH (08:26)
[2020-05-19] MEDS: SACCHAROMYCES BOULARDII 250 MG CAPSULE PO SCH (08:26)
[2020-05-19] MEDS: INSULIN ASPART 300 UNIT/3 ML PEN SUBQ SCH ×2 (08:27→11:34)
[2020-05-19] MEDS: ENOXAPARIN 40 MG/0.4 ML SYRINGE SUBQ SCH (08:28)
[2020-05-19] MEDS: SODIUM CHLORIDE FLUSH 0.9% 10 ML SYRINGE IVP SCH (08:45)
--- NOTE | 2020-05-19 10:19 | DISCHARGE SUMMARY ---
Discharge Summary Admit Date: 05/16/20 Discharge Date: 05/19/20 Discharging Provider: Colt Dainel Primary Care Provider: Jose Avendano Condition at Discharge: Stable Discharge Disposition: 02 Transfer Acute Care Hosp Discharge Facility Name: [facility] - DIAGNOSES Discharge Diagnoses with Status of Each Condition: (1) Bacteremia Repeat blood culture still show 1 tube still has positive for staph aureus bacteremia. Patient was found in 2 tube positive staph aureus bacteremia. After treatment 48 hours with vancomycin in the hospital patient also inserted a PICC line. Staph aureus sensitivity study show MSSA. Patient was found left chest wall cellulitis. Patient has no more fever, CRP continue trended down but patient's WBC is higher than normal range.Patient was treated with vancomycin antibiotics in the hospital. but at this point pt need to have such as INDRA study to r/o Endocarditis. our hospital can not provide this service, pt is transferred to [facility] for high level of care. (2) new onset systolic heart failure, [place] III/IV Patient's Echo show 35 to 40% of EF. pt was treated with metoprolol and Lisinopril, Patient had elevated BNP, shortness of breathing, chest x-rays show pulmonary congestion. patient was given Lasix. Patient feels much better. (3) Sepsis Patient blood pressure is stable, respiratory status was improved, patient has no more fever. CRP continue trended down but patient's WBC is higher than normal range. Blood culture show repeated bacteremia with staph aureus infection. pt is transferred to [facility] for high level of care. (4) Cellulitis of chest wall improved significantly, erythema is significantly reduced, and pt has no more pain. (5) Diabetes A1C is 7.8, pt did not take insulin at home but pt Had Lastus insulin and sliding scale in the hospital (6) Shortness of breath Great improved, patient reported he felt much better. Patient was give metoprolol and Lasix, continue home medication lisinopril in the hospital (7) Pulmonary nodule CTA of the chest show patient has a 5 mm nodule in the right middle lobe. Patient has smoking history but 25 years ago. Advised patient every 6 months to have imaging study to monitor. Patient verbally state he understand (8) Morbid obesity Conclusion/Plan: Patient has 170 kg of the weight and BMI 53.3, And history of diabetic, advise pt loss of weight. (9) Tachycardia HR is 101, nearly resolved. Patient was given metoprolol (10) Nodule of skin of neck Nodule in neck Is almost resolved. Patient can do full ROM of his neck without pain, It is likely a reactive lymph node. - HPI History of Present Illness: This is a 55-year-old male with a PMH significant for a diabetic and obesity who presents to the emergency department for evaluation of pain and erythema in the left shoulder and anterior his chest. pt report he had his left shoulder pain and anterior chest pain happened today morning, then his left anterior chest became erythema. He report he can left his arm but feel mild pain at his left shoulder. he report he barely can lean down his head to the left side. he felt tenderness at left inferior of his neck. He denies any recent falls or trauma. He denies any fever or chill. He denies chest pain. He also report he felt short of breathing and orthopnea when he has laying down in the bed, in which he think it contributes to his anxiety. He report he has hx of dyspnea with ambulation of a short distance due to contribution to his obesity. this is not new for him but shortness of breath at rest is new to him. He denies chest pain. Route lab test in ER show an significant elevated ESR and CRP, slight elevated WBC, lactic acid is in the normal arrange, glucose at 284, troponin is negative for Ischemia. pt is afebrile, tachycardia at 121, and tachypnea at RR 24, at normal arrange blood pressure. CTA Of chest show no evidence pulmonary emboli, Pulmonary nodule right middle lobe, No evidence of acute pulmonary process. Discussed the care goal with patient, patient requests full code - HOSPITAL COURSE Hospital Course: Patient was admitted for left anterior chest wall cellulitis, shortness of breathing. Patient was treated with antibiotics vancomycin, initially blood culture show 2 tubal were positive with staph aureus. Repeated blood culture still show 1 tubal with positive staph aureus. At this point, patient need INDRA to rule out endocarditis. Patient was transferred to [facility] for higher level care. Patient was also found to have 35% of the EF with systolic heart failure and fluids overloaded and tachycardia. Patient was treated with metoprolol, intravenous Lasix and home medication lisinopril.Then patient's resp iratory status become stable. patient feel much better for his breathing. - ALLERGIES Allergies/Adverse Reactions: Allergies Allergy/AdvReac Type Severity Reaction Status Date / Time No Known Drug Allergies Allergy Verified 05/16/20 12:25 - MEDICATIONS Home Medications: Ambulatory Orders Medication Instructions Recorded Confirmed Bromocriptine Mesylate [Parlodel] 2.5 mg PO TID 05/16/20 05/16/20 Gabapentin [Neurontin] 300 mg PO QPM 05/16/20 05/16/20 Glipizide [Glipizide Xl] 10 mg PO DAILYWM 05/16/20 05/16/20 Lisinopril [Prinivil] 5 mg PO DAILY 05/16/20 05/16/20 Methocarbamol [Robaxin-750] 750 mg PO TID PRN 05/16/20 05/16/20 Naproxen [EC-Naproxen] 500 mg PO BID 05/16/20 05/16/20 metFORMIN [Glucophage] 1,000 mg PO BIDWM 05/16/20 05/16/20 metFORMIN [Glucophage] 500 mg PO QDLUNCH 05/16/20 05/16/20 - PHYSICAL EXAM AT DISCHARGE General Appearance: positive: No acute distress, Alert. negative: Lethargic Eyes Bilateral: positive: Normal inspection, PERRL, No lid inflammation ENT: positive: ENT inspection nml, No signs of dehydration. negative: Purulent nasal drainage Neck: positive: Nml inspection, Thyroid nml, Trachea midline, Other (the nudule in left inferior neck is almore resolved. pt report he has no more pain and he can full ROM his neck). negative: Tracheal deviation Respiratory: positive: Chest non-tender, No respiratory distress. negative: Wheezes, Rales Cardiovascular: positive: Regular rate & rhythm, No murmur, Tachycardia. negative: Bradycardia, Systolic murmur, Diastolic murmur Peripheral Pulses: positive: 2+ Abdomen: positive: Non-tender, Nml bowel sounds, No distention. negative: Tenderness, Guarding, Rebound Back: positive: Nml inspection Skin: positive: Warm, Dry, Other (mild erythema at left anterior chest, no tenderness or swelling.). negative: Cyanosis, Diaphoresis, Pallor Extremities: positive: Non-tender, Nml appearance. negative: Calf tenderness Neurologic/Psychiatric: positive: Oriented x3, Motor nml, Sensation nml, Mood/affect nml. negative: Weakness, Sensory loss, Facial droop, Slurred/abnml speech, Depressed mood/affect - LABS Result Diagrams: 05/19/20 04:30 05/19/20 04:30 - SEPSIS Current Stage of Sepsis: Sepsis Sepsis Criteria: Recorded Heart Rate greater than 90 bpm, WBC count greater than 12,000 or less than 4000 - FOLLOW UP Follow Up: transfer to [facility] for high level of care - TIME SPENT Time Spent in Discharge (Minutes): 30
[2020-05-19 11:24] VITALS: BP 125/66
== END 2020-05-19 12:40 | disposition short-term general hospital (02) | DRG 872 ==
LOC: ED 12:20 → MS2 15:56
PROVIDERS: ADMIT Specialist; ATTEND Nurse Practitioner Gerontology
PROC: 02HV33Z Insertion of Infusion Device into Superior Vena Cava, Percutaneous Approach (ICD-10-PCS; principal; 2020-05-18)
DX: A41.01 Sepsis due to Methicillin susceptible Staphylococcus aureus (principal); L03.313 Cellulitis of chest wall; L03.221 Cellulitis of neck; I50.20 Unspecified systolic (congestive) heart failure; Z68.43 Body mass index [BMI] 50.0-59.9, adult; E11.9 Type 2 diabetes mellitus without complications; Z79.84 Long term (current) use of oral hypoglycemic drugs; F41.9 Anxiety disorder, unspecified; E66.01 Morbid (severe) obesity due to excess calories; R91.1 Solitary pulmonary nodule; R59.0 Localized enlarged lymph nodes; Z87.891 Personal history of nicotine dependence; Z20.828 Contact with and (suspected) exposure to other viral communicable diseases; T38.3X6A Underdosing of insulin and oral hypoglycemic [antidiabetic] drugs, initial encounter
CPT/HCPCS: 0202U; 36415; 36600; 71045; 71275; 73200; 76536; 80048; 80053; 80061; 80202; 80306; 81001; 82607; 82728; 82803; 83036; 83540; 83605; 83615; 83690; 83735; 83880; 84100; 84443; 84466; 84484; 85025; 85045; 85651; 86140; 87040; 87077; 87181; 93005; 93306; 96361; 96365; 97161; 97166; 97530; 99284; 99285; A9270; J1650; J1815; J3370; J7120; Q9967; 81003; 83721; 87086

== ENCOUNTER 2020-05-19 12:36 | Outpatient (CLI) | payer OTHER, MEDICAID | END 2020-05-19 12:37 | disposition short-term general hospital (02) | LOC: EMS 12:36 | PROVIDERS: ATTEND Surgery | DX: A41.01 Sepsis due to Methicillin susceptible Staphylococcus aureus (principal); I50.20 Unspecified systolic (congestive) heart failure; E66.01 Morbid (severe) obesity due to excess calories; Z74.01 Bed confinement status | CPT/HCPCS: A0425; A0428 ==

== ENCOUNTER 2020-06-21 11:37 | Outpatient (CLI) | payer OTHER, MEDICAID ==
[2020-06-21 18:16] LABS: BASOPHILS % (AUTO) 0.3 %; EOSINOPHILS # (AUTO) 0.1 10^3/uL (0.0-0.7); EOSINOPHILS % (AUTO) 1.3 %; HGB - HEMOGLOBIN 10.6 g/dL (14.0-18.0); LYMPHOCYTES # (AUTO) 0.8 10^3/uL (1.5-3.5); LYMPHOCYTES % (AUTO) 11.5 %; MEAN CORPUSCULAR HEMOGLOBIN 28.1 pg (27.0-31.0); MEAN CORPUSCULAR HGB CONC 31.2 g/dL (32.0-36.0); MEAN CORPUSCULAR VOLUME 90.2 fL (80.0-94.0); MEAN PLATELET VOLUME 11.2 fL (7.4-11.4); MONOCYTES # (AUTO) 0.5 10^3/uL (0.0-1.0); MONOCYTES % (AUTO) 7.2 %; NEUTROPHILS # (AUTO) 5.5 10^3/uL (1.5-6.6); PLT - PLATELET COUNT 310 10^3/uL (130-450); RED BLOOD COUNT 3.77 10^6/uL (4.70-6.10); RED CELL DISTRIBUTION WIDTH 16.7 % (12.0-15.0)
[2020-06-21 18:20] LABS: CALCIUM 8.7 mg/dL (8.5-10.3); CREATININE 0.9 mg/dL (0.6-1.2)
== END 2020-06-21 23:59 | disposition home or self-care (01) ==
LOC: LAB.WCP 11:37
PROVIDERS: ATTEND Family Medicine
DX: L03.313 Cellulitis of chest wall (principal)
CPT/HCPCS: 36415; 80048; 85025

== ENCOUNTER 2020-06-24 09:50 | Outpatient (CLI) | payer OTHER, MEDICAID | END 2020-06-24 09:51 | disposition critical access hospital (66) | LOC: EMS 09:50 | PROVIDERS: ATTEND Surgery | DX: R42 Dizziness and giddiness (principal) | CPT/HCPCS: A0425; A0429 ==

== ENCOUNTER 2020-06-24 10:20 | Emergency (ER) | payer OTHER, MEDICAID ==
[2020-06-24] MEDS ORDERED: LACTATED RINGERS 1,000 ML IV STA (10:47)
--- NOTE | 2020-06-24 11:03 | ED Physician Documentation ---
History of Present Illness - Stated complaint Stated Complaint: AFIB - Chief complaint Chief Complaint: Cardiac - History obtained from History obtained from: Patient, Family (Sister Randa) - Additonal information Additional information: 55-year-old man with past medical history of diabetes, L neck abscess in may (now resolved, currently with picc line for tid IV cefazolin), atrial fibrillation on Coumadin, status post May ablation at [facility], last INR 1.3 Friday, p/w lightheadedness and palpitations this am after skipping his metoprolol last night due to low BP (systolic in 90s). Patient was discharged from [facility] 5 days ago after a four day stay for picc line infection. denies fevers, pain or erythema at his new picc site. denies other symptoms. Patient's sister Randa helps him with his medications and he has been compliant. Review of Systems Ten Systems: 10 systems reviewed and negative Constitutional: denies: Fever, Chills, Myalgias Cardiac: reports: Palpitations. denies: Chest pain / pressure Neurologic: reports: Other (dizziness) PD PAST MEDICAL HISTORY - Past Medical History Past Medical History: Yes Cardiovascular: Atrial fibrillation Respiratory: None Neuro: None Endocrine/Autoimmune: Type 2 diabetes Psych: None Musculoskeletal: Chronic back pain - Past Surgical History Past Surgical History: Yes - Present Medications Home Medications: Ambulatory Orders Medication Instructions Recorded Confirmed Bromocriptine Mesylate [Parlodel] 2.5 mg PO TID 05/16/20 06/24/20 Glipizide [Glipizide Xl] 10 mg PO DAILYWM 05/16/20 06/24/20 Methocarbamol [Robaxin-750] 750 mg PO PRN PRN 05/16/20 06/24/20 metFORMIN [Glucophage] 1,000 mg PO BIDWM 05/16/20 06/24/20 metFORMIN [Glucophage] 500 mg PO QDLUNCH 05/16/20 06/24/20 Amiodarone [Pacerone] 200 mg PO DAILY 06/24/20 06/24/20 Bromocriptine Mesylate [Parlodel] 2.5 mg PO TID 06/24/20 06/24/20 Ferrous Sulfate 325 mg PO DAILY 06/24/20 06/24/20 Furosemide [Lasix] 10 mg PO DAILY 06/24/20 06/24/20 Warfarin [Coumadin] 7.5 mg PO DAILY 06/24/20 06/24/20 cefTAZidime [Fortaz] 2 g IV TID 06/24/20 06/24/20 - Allergies Allergies/Adverse Reactions: Allergies Allergy/AdvReac Type Severity Reaction Status Date / Time No Known Drug Allergies Allergy Verified 05/16/20 12:25 - Social History Does the pt smoke?: No Smoking Status: Never smoker Does the pt drink ETOH?: Yes Does the pt have substance abuse?: No - Immunizations Immunizations are current?: Yes - POLST Patient has POLST: No PD ED PE NORMAL - Vitals Vital signs reviewed: Yes - General General: Alert and oriented X 3 - HEENT HEENT: Atraumatic, PERRL, EOMI, Moist mucous membranes - Neck Neck: Supple, no meningeal sign - Cardiac Cardiac: Other (Borderline tachycardic rate, irregular rhythm) - Respiratory Respiratory: No respiratory distress, Clear bilaterally - Abdomen Abdomen: Non tender, Non distended - Male Male : Deferred - Rectal Rectal: Deferred - Back Back: No spinal TTP - Derm Derm: Normal color - Extremities Extremities: No deformity - Neuro Neuro: Alert and oriented X 3 - Psych Psych: Normal mood, Normal affect Results - Vitals Vitals: Vital Signs - 24 hr 06/24/20 06/24/20 06/24/20 10:22 10:29 10:46 Temperature 36.4 C L Heart Rate 121 H 111 H 120 H Respiratory 18 18 19 Rate Blood Pressure 97/65 108/77 99/72 O2 Saturation 97 100 96 06/24/20 06/24/20 10:56 11:32 Temperature 37.2 C Heart Rate 99 Respiratory 22 Rate Blood Pressure 96/70 O2 Saturation 92 Oxygen O2 Source Room air - Labs Labs: Laboratory Tests 06/24/20 06/24/20 06/24/20 10:54 10:54 10:54 WBC 6.4 RBC 3.90 L Hgb 11.0 L Hct 35.1 L MCV 90.0 MCH 28.2 MCHC 31.3 L RDW 16.7 H Plt Count 305 MPV 9.9 Neut # (Auto) 5.2 Lymph # (Auto) 0.7 L [place] # (Auto) 0.4 Eos # (Auto) 0.1 Baso # (Auto) 0.0 Absolute Nucleated RBC 0.00 Nucleated RBC % 0.0 Sodium 135 Potassium 4.7 Chloride 96 L Carbon Dioxide 23 Anion Gap 16.0 H BUN 18 Creatinine 0.7 Estimated GFR (MDRD) 116 Glucose 107 H Lactic Acid 1.6 Calcium 9.3 Total Bilirubin 0.4 AST 16 ALT 18 Alkaline Phosphatase 99 Total Protein 7.0 Albumin 3.5 Globulin 3.5 Albumin/Globulin Ratio 1.0 PD MEDICAL DECISION MAKING - ED course ED course: 11:50am - d/w Dr. brie pennington with ID ([phone]) who recommends patient c/w ceftazidime course. His office will call this friday to arrange a follow up appointment next week. patient HR has come down with IV fluids, and BP holding steady. He is in NAD, asymptomatic. strict return precautions given. Departure - Departure Disposition: 01 Home, Self Care Clinical Impression: Afib, Dizziness Condition: Good Instructions: Atrial Fibrillation Dc Follow-Up: GABE BHAKTA MD [Physician No Access] - Comments: You were seen in the emergency department for dizziness. Your blood work does not show any sign of worsening infection. I spoke with Dr. Pennington, one of the infectious disease doctors at the clinic you go to. Their office will call you on Friday to arrange a follow-up appointment with Dr. Bhakta next week. Their number is [phone]. Return to the ED for any new or worsening symptoms, especially if you start to have fevers.
[2020-06-24 11:04] LABS: BASOPHILS % (AUTO) 0.3 %; EOSINOPHILS # (AUTO) 0.1 10^3/uL (0.0-0.7); EOSINOPHILS % (AUTO) 0.9 %; LYMPHOCYTES # (AUTO) 0.7 10^3/uL (1.5-3.5); LYMPHOCYTES % (AUTO) 10.6 %; MEAN CORPUSCULAR HEMOGLOBIN 28.2 pg (27.0-31.0); MEAN CORPUSCULAR HGB CONC 31.3 g/dL (32.0-36.0); MEAN PLATELET VOLUME 9.9 fL (7.4-11.4); MONOCYTES # (AUTO) 0.4 10^3/uL (0.0-1.0); MONOCYTES % (AUTO) 6.2 %; NEUTROPHILS # (AUTO) 5.2 10^3/uL (1.5-6.6); NEUTROPHILS % (AUTO) 81.2 %; PLT - PLATELET COUNT 305 10^3/uL (130-450); RED CELL DISTRIBUTION WIDTH 16.7 % (12.0-15.0); WHITE BLOOD COUNT 6.4 x10^3/uL (4.8-10.8)
[2020-06-24 11:14] LABS: ALBUMIN 3.5 g/dL (3.2-5.5); BILIRUBIN,TOTAL 0.4 mg/dL (0.2-1.0); CALCIUM 9.3 mg/dL (8.5-10.3); CREATININE 0.7 mg/dL (0.6-1.2)
[2020-06-24 12:19] VITALS: BP 104/73
== END 2020-06-24 12:30 | disposition home or self-care (01) ==
LOC: EDUNIT# → ED 10:20
DX: R42 Dizziness and giddiness (principal); I48.91 Unspecified atrial fibrillation; Z79.01 Long term (current) use of anticoagulants; I45.81 Long QT syndrome; E11.9 Type 2 diabetes mellitus without complications; Z79.84 Long term (current) use of oral hypoglycemic drugs; Z95.828 Presence of other vascular implants and grafts
CPT/HCPCS: 36415; 80053; 83605; 85025; 87040; 96360; 99283; 99284; J7120

== ENCOUNTER 2020-07-01 17:58 | Outpatient (CLI) | payer OTHER, MEDICAID ==
--- NOTE | 2020-07-02 13:30 | Ultrasound Report ---
PROCEDURE: Head or Neck Soft Tissue INDICATIONS: NECK ABCESSES TECHNIQUE: Real time scanning was performed of the neck region of interest, with image documentation . COMPARISON: Ultrasound dated 05/16/2020. FINDINGS: Underlying the area of concern within the left neck just superior to the clavicle is a hete rogeneous appearing mass which is minimally hypoechoic with regions of increased echogenicity. This m easures 4.5 x 0.7 x 1.9 cm. This previously measured 5.0 x 1.7 x 3.0 cm. There is peripheral vascular ity with likely small amount of internal vascularity. IMPRESSION: Nonspecific mass in the area of the left supraclavicular region. This is slightly decreased in size f rom comparison examination. Although this may represent infectious process versus resolving hematoma, malignant neoplasm adenopathy, or other mass lesion not excluded. Recommend dedicated cross-sectiona l imaging for further evaluation. Reviewed by: Thien Coello DO on 07/02/2020 12:29 PM [facility] Approved by: Thien Coello DO on 07/02/2020 12:29 PM [place] Station ID: [id number]
== END 2020-07-01 17:59 | disposition home or self-care (01) ==
LOC: DI 17:58
PROVIDERS: ATTEND Internal Medicine Infectious Disease
DX: R93.89 Abnormal findings on diagnostic imaging of other specified body structures (principal)

== ENCOUNTER 2020-07-04 10:05 | Emergency (ER) | payer OTHER, MEDICAID ==
--- NOTE | 2020-07-04 10:36 | XRAY Report ---
PROCEDURE: Chest 1 View X-Ray INDICATIONS: Chest Pain TECHNIQUE: One view of the chest was acquired. COMPARISON: 05/18/2020 FINDINGS: Surgical changes and devices: None. Lungs and pleura: No pleural effusions or pneumothorax. Lungs are clear. Mediastinum: Mediastinal contours appear normal. Mild to moderate cardiomegaly has developed. Cannot exclude pericardial effusion. Bones and chest wall: No suspicious bony lesions. Overlying soft tissues appear unremarkable. IMPRESSION: Interval development of mild to moderate cardiomegaly. Cannot exclude pericardial effusion. Comment: Consider echocardiography to evaluate possible pericardial fluid. Reviewed by: Frederic Vallecillo MD on 07/04/2020 10:34 AM [facility] Approved by: Frederic Vallecillo MD on 07/04/2020 10:34 AM [facility] Station ID: [id number]
[2020-07-04 10:52] LABS: BASOPHILS % (AUTO) 0.2 %; EOSINOPHILS # (AUTO) 0.1 10^3/uL (0.0-0.7); HGB - HEMOGLOBIN 11.2 g/dL (14.0-18.0); LYMPHOCYTES # (AUTO) 0.8 10^3/uL (1.5-3.5); LYMPHOCYTES % (AUTO) 13.6 %; MEAN CORPUSCULAR HEMOGLOBIN 28.3 pg (27.0-31.0); MEAN CORPUSCULAR HGB CONC 30.4 g/dL (32.0-36.0); MEAN CORPUSCULAR VOLUME 92.9 fL (80.0-94.0); MEAN PLATELET VOLUME 10.2 fL (7.4-11.4); MONOCYTES # (AUTO) 0.4 10^3/uL (0.0-1.0); MONOCYTES % (AUTO) 6.2 %; NEUTROPHILS # (AUTO) 4.6 10^3/uL (1.5-6.6); NEUTROPHILS % (AUTO) 78.8 %; PLT - PLATELET COUNT 293 10^3/uL (130-450); RED BLOOD COUNT 3.96 10^6/uL (4.70-6.10); WHITE BLOOD COUNT 5.8 x10^3/uL (4.8-10.8)
[2020-07-04] MEDS ORDERED: SODIUM CHLORIDE 0.9% 1,000 ML IV STA (11:00)
[2020-07-04 11:03] LABS: ALBUMIN 3.7 g/dL (3.2-5.5); ALBUMIN/GLOBULIN RATIO 1.2 (1.0-2.2); BILIRUBIN,TOTAL 0.4 mg/dL (0.2-1.0); CALCIUM 9.3 mg/dL (8.5-10.3); CREATININE 0.9 mg/dL (0.6-1.2); TOTAL PROTEIN 6.9 g/dL (6.7-8.2)
--- NOTE | 2020-07-04 11:04 | ED Physician Documentation ---
PD HPI CHEST PAIN - Stated complaint Stated Complaint: CHEST TIGHTNESS - Chief complaint Chief Complaint: Cardiac - History obtained from History obtained from: Patient - History of Present Illness Timing - onset: Last night Timing - onset during: Rest Timing - duration: Hours Timing - details: Abrupt onset, Now resolved Pain level max: 4 Pain level now: 0 Quality: Pressure Location: Substernal, Left chest Radiation: No: Jaw, Neck, Back, Abdominal, Left upper extremity, Right upper extremity Improved by: Rest Worsened by: Inspiration Associated symptoms: Feeling faint / dizzy. No: Shortness of air, Diaphoresis, Nausea, Vomiting Similar symptoms before: Has not had sx before Recently seen: Admitted (with cellulitis to the neck and this required IV antibiotic and a PICC line.) - Additional information Additional information: 55-year-old male with a history of atrial fibrillation who has had a recent episode of sepsis and has been placed on IV antibiotic has finished his courses of antibiotic and last night he experienced some left-sided chest pain about a 4 out of 10 and he had no other modifying factors. His pain is resolved when he talked to his primary he was asked to come to the emergency department for evaluation. Review of Systems Constitutional: denies: Fever Ears: denies: Ear pain Nose: denies: Congestion Throat: denies: Sore throat Cardiac: reports: Chest pain / pressure, Pedal edema. denies: Palpitations Respiratory: reports: Dyspnea, Cough GI: denies: Nausea, Vomiting : denies: Dysuria, Frequency Musculoskeletal: reports: Extremity swelling. denies: Neck pain, Back pain, Extremity pain Neurologic: denies: Generalized weakness, Focal weakness, Numbness PD PAST MEDICAL HISTORY - Past Medical History Cardiovascular: Atrial fibrillation Respiratory: None Neuro: None Endocrine/Autoimmune: Type 2 diabetes Psych: None Musculoskeletal: Chronic back pain - Past Surgical History Past Surgical History: Yes - Present Medications Home Medications: Ambulatory Orders Medication Instructions Recorded Confirmed Bromocriptine Mesylate [Parlodel] 2.5 mg PO TID 05/16/20 06/24/20 Glipizide [Glipizide Xl] 10 mg PO DAILYWM 05/16/20 06/24/20 Methocarbamol [Robaxin-750] 750 mg PO PRN PRN 05/16/20 06/24/20 metFORMIN [Glucophage] 1,000 mg PO BIDWM 05/16/20 06/24/20 metFORMIN [Glucophage] 500 mg PO QDLUNCH 05/16/20 06/24/20 Amiodarone [Pacerone] 200 mg PO DAILY 06/24/20 06/24/20 Bromocriptine Mesylate [Parlodel] 2.5 mg PO TID 06/24/20 06/24/20 Ferrous Sulfate 325 mg PO DAILY 06/24/20 06/24/20 Furosemide [Lasix] 10 mg PO DAILY 06/24/20 06/24/20 Warfarin [Coumadin] 7.5 mg PO DAILY 06/24/20 06/24/20 cefTAZidime [Fortaz] 2 g IV TID 06/24/20 06/24/20 - Allergies Allergies/Adverse Reactions: Allergies Allergy/AdvReac Type Severity Reaction Status Date / Time No Known Drug Allergies Allergy Verified 07/04/20 10:11 - Social History Does the pt smoke?: No Smoking Status: Never smoker Does the pt drink ETOH?: Yes Does the pt have substance abuse?: No - Immunizations Immunizations are current?: Yes - POLST Patient has POLST: No PD ED PE NORMAL - Vitals Vital signs reviewed: Yes (tachy and hypertensive mild ) - General General: Alert and oriented X 3, No acute distress, Well developed/nourished - HEENT HEENT: Atraumatic, PERRL, EOMI - Neck Neck: Supple, no meningeal sign, No bony TTP - Cardiac Cardiac: Other (tachy with distant sounds ) - Respiratory Respiratory: No respiratory distress, Clear bilaterally - Abdomen Abdomen: Soft, Non tender - Back Back: No CVA TTP, No spinal TTP - Derm Derm: Normal color, Warm and dry, No rash - Extremities Extremities: No deformity, Other (trace edema more on the left) - Neuro Neuro: Alert and oriented X 3, call center manager 2-12 intact, No motor deficit, No sensory deficit, Normal speech Eye Opening: Spontaneous Motor: Obeys Commands Verbal: Oriented GCS Score: 15 - Psych Psych: Normal mood, Normal affect Results - Vitals Vitals: Vital Signs - 24 hr 07/04/20 07/04/20 07/04/20 10:11 11:26 13:00 Temperature 36.8 C Heart Rate 121 H 97 99 Respiratory 22 13 23 Rate Blood Pressure 114/83 H 119/84 H 128/73 O2 Saturation 99 99 100 07/04/20 14:22 Temperature Heart Rate 80 Respiratory 19 Rate Blood Pressure 118/96 H O2 Saturation 100 Oxygen O2 Source Room air - EKG (time done) 1018 Rate: Rate (enter#) (111) Rhythm: Atrial fibrillation, ELOY Intervals: Prolonged QT (borderline) QRS: Low voltage Compare to prior EKG: Changed from prior EKG (SPT 06-24-20 the rate has decreased) Computer interpretation: Agree with computer - Labs Labs: Laboratory Tests 07/04/20 07/04/20 07/04/20 10:16 10:40 10:46 WBC 5.8 RBC 3.96 L Hgb 11.2 L Hct 36.8 L MCV 92.9 MCH 28.3 MCHC 30.4 L RDW 16.0 H Plt Count 293 MPV 10.2 Neut # (Auto) 4.6 Lymph # (Auto) 0.8 L [place] # (Auto) 0.4 Eos # (Auto) 0.1 Baso # (Auto) 0.0 Absolute Nucleated RBC 0.00 Nucleated RBC % 0.0 PT 20.7 H INR 1.9 H Sodium Potassium Chloride Carbon Dioxide Anion Gap BUN Creatinine Estimated GFR (MDRD) Glucose Calcium Total Bilirubin AST ALT Alkaline Phosphatase Troponin I High Sens B-Natriuretic Peptide 938 H Total Protein Albumin Globulin Albumin/Globulin Ratio Lipase 07/04/20 07/04/20 10:46 10:46 WBC RBC Hgb Hct MCV MCH MCHC RDW Plt Count MPV Neut # (Auto) Lymph # (Auto) [place] # (Auto) Eos # (Auto) Baso # (Auto) Absolute Nucleated RBC Nucleated RBC % PT INR Sodium 138 Potassium 4.0 Chloride 101 Carbon Dioxide 27 Anion Gap 10.0 BUN 26 H Creatinine 0.9 Estimated GFR (MDRD) 87 L Glucose 157 H Calcium 9.3 Total Bilirubin 0.4 AST 13 ALT 17 Alkaline Phosphatase 78 Troponin I High Sens 8.7 B-Natriuretic Peptide Total Protein 6.9 Albumin 3.7 Globulin 3.2 Albumin/Globulin Ratio 1.2 Lipase 30 - Rads (name of study) chest Radiology: Prelim report reviewed (Impression: Interval development of mild to moderate cardiomegaly. Cannot exclude pericardial effusion. Comment: Consider echocardiography to evaluate possible pericardial fluid.), EMP read indepedently, See rad report Procedures - IVC sono (time) 1100 Bedside IVC sono: IVC measures (cm) (1.09), Dehydration (est 1-2 liter deficit) PD MEDICAL DECISION MAKING - ED course Complexity details: reviewed old records, reviewed results, re-evaluated patient, considered differential, d/w patient ED course: 67 y/o Diabetic male appears dehydrated on interrogation the inferior vena cava and he is administered saline. His diagnostic studies are otherwise unremarkable, with the exception of the chest x-ray which appears dry and has increased cardiomegaly demonstrated. Enough that the radiologist recommended echo. The electronic systems technician was kind enough to demonstrate absence of pericardial effusion and she is able to demonstrate the IVC is plethoric and dilated to 2.5cm. The vessel I imaged was likely the hepatic vein. He does not have pulmonary edema. He has resolution of his symptoms and no acute findings. He has follow up with the marketing researcher this week. He has some asymetric swelling to the left leg and a venous doppler is negative for DVT. Departure - Departure Disposition: 01 Home, Self Care Clinical Impression: Atypical chest pain Instructions: ED Chest Pain Atypical Unkn Cause Follow-Up: Jaden Marc MD [Primary Care Provider] - Discharge Date/Time: 07/04/20 14:28
[2020-07-04 13:27] LABS: INR 1.9 (0.8-1.2); PT - PROTHROMBIN TIME 20.7 secs (9.9-12.6)
--- NOTE | 2020-07-04 13:54 | Ultrasound Report ---
PROCEDURE: Duplex Ext Veins Left INDICATIONS: asymetric swelling TECHNIQUE: Real-time imaging, as well as color and pulse Doppler interrogation, were performed of the lower extr emity deep veins from the inguinal ligament to the popliteal fossa. COMPARISON: None. FINDINGS: Limited visualization of the deep veins in the calf due to patient body habitus and subcut aneous edema. Within this limitation, there is no evidence of intraluminal thrombus. The deep veins a ppear normally compressible without echogenic intraluminal thrombus is demonstrated. The deep veins d emonstrate demonstrate normal color and pulse Doppler phasic waveforms. Normal augmentation response to distal compression maneuver. IMPRESSION: No sonographic evidence of deep venous thrombosis. Reviewed by: Ervin Miller MD on 07/04/2020 1:53 PM PST Approved by: Ervin Miller MD on 07/04/2020 1:53 PM PST Station ID: [id number]
[2020-07-04 14:24] VITALS: BP 118/96
== END 2020-07-04 14:28 | disposition home or self-care (01) ==
LOC: ED 10:05
DX: R07.89 Other chest pain (principal); E86.0 Dehydration; I51.7 Cardiomegaly; R60.0 Localized edema; I48.91 Unspecified atrial fibrillation; Z79.01 Long term (current) use of anticoagulants; E11.9 Type 2 diabetes mellitus without complications; Z79.84 Long term (current) use of oral hypoglycemic drugs
CPT/HCPCS: 36415; 80053; 83690; 83880; 84484; 85025; 85610; 93005; 93308; 96360; 99284

== ENCOUNTER 2020-07-05 13:25 | Outpatient (CLI) | payer OTHER, MEDICAID ==
[2020-07-05 14:17] VITALS: BP 115/74
--- NOTE | 2020-07-05 14:17 | SLEEP CARE CONSULTATION ---
Information from patient questionnaire entered by Rafi Willingham. I have reviewed and concur with the information entered by Rafi Willingham. This document represents the service I personally performed and the decisions made by me, Michelle Landaverde ARNP. History of Present Illness Service Date and Time: 07/05/2020 1325 Reason for Visit: New patient Chief Complaint: reports: Unrefreshed sleep (some days), Snoring, Excessive daytime sleepiness, Observed pauses in breathing, Frequent awakenings at night (sometimes for the bathroom) Usual bedtime: 10-midnight Time it takes to fall asleep: 20 minutes Snores at night: Yes Observed to quit breathing while asleep: Yes Number of times waking at night: 3-4 Reasons for waking at night: reports: Gasping for air, Bathroom. denies: Choking, Snoring Toss, Turn, or Twitch while sleeping: Yes Recalls having dreams: Yes Usually gets out of bed at: 6-7 Feels refreshed in the morning: No Morning headache: No Sleepy or fatigued during the day: Yes Ever fallen asleep while driving: Yes (no accidents, drowsy driving) Takes day naps: Yes (daily lately, 1-2 hours long) Dreams during day naps: No Prior sleep studies: No Additional HPI information: I had the pleasure of seeing REINA FALK today regarding the possibility of him having a sleep disorder. His current complaints are observed pauses in breathing and snoring. When he was recovering from hospital stay for cellulitis and sepsis, his sister saw that he would have pauses in breathing and some gasping for air in his sleep. He felt he did this in the hospital as well. He had a roommate 20 years ago that he snored and talked in his sleep. He gets tired a lot during the day. He is excessively sleepy during the day. - Parasomnia Symptoms Ever been unable to move upon waking from sleep: No Walks in sleep: Yes (when a kid) Talks in sleep: Yes Ever acted out dreams in sleep: Yes Ever felt weak in the knees when startled or emotional: Yes Bothered by creepy, crawly, restless sensations in legs: No Problems with memory or concentration: No Subjective Initial [place] Sleepiness Scale score: 24 (in 2021) Past Medical History Past Medical History: reports: Congestive Heart Failure, Diabetes (type 2), Arrythmia (Atril fibrillation). 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 Patient is Single and lives in [place]. Have you smoked in the past 12 months: No Cigarettes per day (20/pack): 10 Years of smokin Quit date: 1999 Smoking Pack Years: 5.0 Alcohol use: No Caffeine use: Yes Caffeine amount and frequency: 1 cup coffee daily, 1-2 sodas a day Family History Family history of sleep disordered breathing: No Family Hx Sleep Apnea: Sibling: Snoring Allergies and Home Medications Drug allergies reviewed: Yes (NKDA) Home medication list reviewed: Yes Allergy and home medication list: Metformin Glipizide Bromocriptine Furosemide Warfarin Amiodarone Cefadroxil Carvedilol Iron Multivitamin Review of Systems Weight loss over past 5 years: 10 Cardiovascular: reports: irregular heart rate or pulse, leg or foot swelling Urinary: reports: impotence Ear/Nose/Throat: reports: wisdom teeth removed. denies: tonsillectomy Endocrine: reports: increased urination Physical Exam Blood Pressure: 115/74 Cuff size: wrist Heart Rate: 93 O2 Saturation: 98 Height: 5 ft 10 in Weight: 366 lb Body Mass Index: 52.4 BMI Classification: Morbidly Obese Neck circumference: 17 (inches) HEENT: No craniofacial malformation Nostrils: patent to airflow Turbinates: normal Mouth and throat: narrow oropharynx Soft palate: long Hard palate: normal Uvula visualization: 25% Mallampati Class III Tongue: enlarged in size with teeth vale on lateral edges Tonsils: 1+ Neck: normal w/o lymphadenopathy or thyromegaly Heart: regular rate and rhythm Lungs: clear bilaterally Impression and Plan 1. Suspected Obstructive Sleep Apnea-Hypopnea Syndrome, as suggested by a history of loud and irregular snoring, observed cessation of breath while asleep, gasping or choking in sleep, frequent awakening during the night, unrefreshed sleep, and excessive daytime sleepiness. Narrow oropharynx and obesity are common predisposing factors for obstructive sleep apnea-hypopnea syndrome. I recommend proceeding to polysomnography to confirm the diagnosis and to assess severity. If the patient has significant sleep disordered breathing, a manual CPAP titration study will also be performed to find the optimal treatment pressure. I informed the patient of what the sleep studies involve and after some discussion, obtained agreement to proceed. The pathophysiology of obstructive sleep apnea-hypopnea syndrome was discussed with the patient and health risks of cardiovascular and cerebrovascular disease if not treated. AASM brochure for obstructive sleep apnea-hypopnea syndrome given and reviewed. Risks of drowsy driving discussed in detail and patient advised to avoid long distance driving and to clod puller at the first sign of drowsiness. Patient agreed to plan. * Schedule polysomnography +- manual CPAP titration study and return in 1-2 weeks after the study to discuss result and initiate therapy. * Avoid long distance driving or driving when feeling sleepy. * Avoid sedative and muscle relaxant around bedtime. * Attempt to lose weight. * Review instructions provided by trained office staff on how to prepare for the sleep study. * Return for follow-up after sleep study completed. Counseling Topics: Weight loss health impact Visit Type: In Office Time Spent with Patient (minutes): 32 Provider Statement: I spent 100% of the Face to Face Visit with the patient with greater than 50% spent counseling the patient and coordination of care.
== END 2020-07-05 13:26 | disposition home or self-care (01) ==
LOC: SC 13:25
PROVIDERS: ATTEND Nurse Practitioner Family
DX: G47.10 Hypersomnia, unspecified (principal); G47.8 Other sleep disorders; R06.81 Apnea, not elsewhere classified; R06.83 Snoring; E66.01 Morbid (severe) obesity due to excess calories; Z68.43 Body mass index [BMI] 50.0-59.9, adult
CPT/HCPCS: 99203; 99212

== ENCOUNTER 2020-07-06 09:42 | Outpatient (CLI) | payer OTHER, MEDICAID ==
[2020-07-06 12:22] LABS: INR 2.1 (0.8-1.2); PT - PROTHROMBIN TIME 22.6 secs (9.9-12.6)
== END 2020-07-06 09:43 | disposition home or self-care (01) ==
LOC: LAB.N 09:42
PROVIDERS: ATTEND Family Medicine
DX: R78.81 Bacteremia (principal); I48.91 Unspecified atrial fibrillation; Z79.01 Long term (current) use of anticoagulants
CPT/HCPCS: 36415; 80053; 83880; 84146; 85025; 85610; 86140

== ENCOUNTER 2020-07-11 14:03 | Outpatient (CLI) | payer MEDICAID ==
[2020-07-11 18:26] LABS: CALCIUM 9.3 mg/dL (8.5-10.3)
== END 2020-07-11 14:04 | disposition home or self-care (01) ==
LOC: LAB.N 14:03
PROVIDERS: ATTEND Physician Assistant
DX: I50.20 Unspecified systolic (congestive) heart failure (principal)
CPT/HCPCS: 36415; 80048; 80053; 83735; 83880; 84146; 85025; 85610; 86140

== ENCOUNTER 2020-07-24 12:58 | Outpatient (CLI) | payer OTHER, MEDICAID | END 2020-07-24 12:59 | disposition home or self-care (01) | LOC: SC 12:58 | PROVIDERS: ATTEND Nurse Practitioner Family | DX: G47.33 Obstructive sleep apnea (adult) (pediatric) (principal); R09.02 Hypoxemia; E66.9 Obesity, unspecified; Z68.43 Body mass index [BMI] 50.0-59.9, adult | CPT/HCPCS: 95806 ==

== ENCOUNTER 2020-07-24 14:14 | Outpatient (CLI) | payer OTHER, MEDICAID | END 2020-07-24 14:15 | disposition home or self-care (01) | LOC: LAB.N 14:14 | PROVIDERS: ATTEND Family Medicine | DX: I48.91 Unspecified atrial fibrillation (principal); Z79.01 Long term (current) use of anticoagulants | CPT/HCPCS: 85610 ==

== ENCOUNTER 2020-08-02 14:02 | Outpatient (CLI) | payer OTHER, MEDICAID ==
[2020-08-02 17:49] LABS: INR 2.5 (0.8-1.2); PT - PROTHROMBIN TIME 26.3 secs (9.9-12.6)
[2020-08-02 18:12] LABS: THYROID STIMULATING HORMONE 4.83 uIU/mL (0.34-5.60)
[2020-08-02 18:14] LABS: FREE T4 (FREE THYROXINE) 1.12 ng/dL (0.58-1.64)
== END 2020-08-02 14:03 | disposition home or self-care (01) ==
LOC: LAB.N 14:02
PROVIDERS: ATTEND Family Medicine
DX: I48.0 Paroxysmal atrial fibrillation (principal); Z79.01 Long term (current) use of anticoagulants
CPT/HCPCS: 36415; 84146; 84439; 84443; 85610

== ENCOUNTER 2020-08-08 08:00 | Outpatient (CLI) | payer MEDICAID, OTHER ==
[2020-08-08 12:01] LABS: BASOPHILS % (AUTO) 0.6 %; EOSINOPHILS # (AUTO) 0.1 10^3/uL (0.0-0.7); EOSINOPHILS % (AUTO) 0.9 %; HCT - HEMATOCRIT 39.1 % (42.0-52.0); HGB - HEMOGLOBIN 11.9 g/dL (14.0-18.0); LYMPHOCYTES # (AUTO) 0.8 10^3/uL (1.5-3.5); MEAN CORPUSCULAR HEMOGLOBIN 27.5 pg (27.0-31.0); MEAN CORPUSCULAR HGB CONC 30.4 g/dL (32.0-36.0); MEAN CORPUSCULAR VOLUME 90.3 fL (80.0-94.0); MEAN PLATELET VOLUME 12.2 fL (7.4-11.4); MONOCYTES # (AUTO) 0.5 10^3/uL (0.0-1.0); MONOCYTES % (AUTO) 6.9 %; NEUTROPHILS # (AUTO) 5.2 10^3/uL (1.5-6.6); NEUTROPHILS % (AUTO) 77.9 %; PLT - PLATELET COUNT 253 10^3/uL (130-450); RED BLOOD COUNT 4.33 10^6/uL (4.70-6.10); RED CELL DISTRIBUTION WIDTH 15.5 % (12.0-15.0); WHITE BLOOD COUNT 6.7 x10^3/uL (4.8-10.8)
[2020-08-08 12:08] LABS: CREATININE,URINE 71.4 mg/dL; MICROALBUM/CREATININE RATIO,UR 64.4 ug/mg (<30.0); MICROALBUMIN,URINE 4.6 mg/dL (0-300.0)
[2020-08-08 12:25] LABS: INR 2.4 (0.8-1.2); PT - PROTHROMBIN TIME 25.4 secs (9.9-12.6)
[2020-08-08 12:35] LABS: ESTIMATED AVERAGE GLUCOSE 131 mg/dL (70-100); HEMOGLOBIN A1c% 6.2 % (4.27-6.07)
[2020-08-08 12:38] LABS: ALBUMIN 3.8 g/dL (3.2-5.5); ALBUMIN/GLOBULIN RATIO 1.2 (1.0-2.2); ALKALINE PHOSPHATASE 115 IU/L (42-121); ALT ALANINE AMINOTRANSFERASE 20 IU/L (10-60); AST ASPARTATE AMINOTRANSFERASE 18 IU/L (10-42); BILIRUBIN,TOTAL 0.3 mg/dL (0.2-1.0); BUN - BLOOD UREA NITROGEN 19 mg/dL (6-20); CARBON DIOXIDE - CO2 26 mmol/L (21-32); CHLORIDE 105 mmol/L (101-111); CHOL/HDL RATIO 2.5 (<5.0); CHOLESTEROL 107 mg/dL; CREATININE 0.7 mg/dL (0.6-1.2); GFR - MDRD 116 (>89); GLUCOSE 96 mg/dL (70-100); HDL CHOLESTEROL 43 mg/dL; LDL CHOLESTEROL,CALCULATED 52 mg/dL; LDL/HDL RATIO 1.2 (<3.6); POTASSIUM 4.2 mmol/L (3.5-5.0); SODIUM 139 mmol/L (135-145); TOTAL PROTEIN 7.1 g/dL (6.7-8.2); TRIGLYCERIDES 60 mg/dL; VLDL CHOLESTEROL 12 mg/dL
== END 2020-08-08 23:59 | disposition home or self-care (01) ==
LOC: LAB.WCP 08:00
PROVIDERS: ATTEND Internal Medicine
DX: I10 Essential (primary) hypertension (principal); E11.9 Type 2 diabetes mellitus without complications; I42.9 Cardiomyopathy, unspecified; D35.2 Benign neoplasm of pituitary gland; I48.91 Unspecified atrial fibrillation
CPT/HCPCS: 36415; 80053; 80061; 82043; 82570; 83036; 83721; 83880; 84146; 85025; 85610

== ENCOUNTER 2020-08-16 14:16 | Outpatient (CLI) | payer MEDICAID ==
--- NOTE | 2020-08-16 14:51 | SLEEP CARE CONSULTATION ---
Information from patient questionnaire entered by Rafi Willingham. I have reviewed and concur with the information entered by Rafi Willingham. This document represents the service I personally performed and the decisions made by me, Michelle Landaverde ARNP. History of Present Illness Service Date and Time: 08/16/2020 141 Initial [place] Sleepiness Scale score: 24 (in 2020) Current [place] Sleepiness Scale score: 19 Additional HPI information: REINA FALK returns for follow up and results of the recently performed home sleep study. He has severe obstructive sleep apnea. I explained the pathophysiology behind obstructive sleep apnea. We then spent quite a bit of time discussing different treatment options. For mild obstructive sleep apnea, surgery and oral appliance are alternatives to nasal CPAP therapy but in moderate or severe cases, nasal CPAP is the most effective and reliable treatment. Because apnea is primarily in supine position, then positional management therapy could be effective. Methods discussed such as positioning with pillows, using a T-shirt with tennis balls in the back, and shown commercial products that have a pillow format on back to prevent supine sleep. I reviewed the impact of weight changes on sleep apnea and strongly recommended losing weight. After some discussion, the patient opted to go with the nasal CPAP therapy. Nasal autoCPAP set at 4-15 cmH20 will be ordered with rationale explained. A manual titration study will be ordered if unable to find optimal pressure with office adjustments. I explained how CPAP machine works with sample devices Respironics Dreamstation and ResTriActive [id number] and what to expect when using the machine. Using CPAP every night in order to get used to it was emphasized. Patient advised to put CPAP mask on before getting into bed so as not to fall asleep without CPAP. To assist acclimation to CPAP use, it could also be used for a short time during day while reading or watching TV. The patient was instructed to call the CPAP supplier to discuss any mechanical problem that may occur. If the mask given is uncomfortable or is difficult to keep on through the night even with adjustment, contact the CPAP supplier as many will replace with another mask style if notified before 30 days. If snoring or perceives is not getting enough air or too much air from the machine, notify this office. AAS patient education PAP tips reviewed and given to patient. Patient counseled not drink alcohol less than 4 hours before bedtime as it can increase snoring and apnea. Patient was cautioned about risks of drowsy driving until sleepiness symptoms resolve. Sleep Study - Results Type of Sleep Study: Home sleep study Prior sleep studies: No Polysomnography/Home Sleep Study results: Physician Impression: The quality of the study is good. The length of the study is adequate (> 240 minutes). Please also see the tabulated and graphic data. 1. Obstructive Sleep Apnea-Hypopnea (ICD-10 G47.33), severe, with an AHI of 50.1 /hr and destini SaO2 of 74%. During the study, the patient had 267 apneas (266 obstructive, 1 central, 0 mixed) and 166 hypopneas. The longest episode lasted 59.0 seconds. The respiratory events occurred more frequently during supine sleep (supine AHI was 71.3 and non-supine, 36.64). 2. Hypoxemia (ICD-10 R09.02), moderate, with the lowest oxygen saturation of 74 % and 135.8 minutes with SaO2 under 90%. Baseline oxygen saturation was normal (Average oxygen saturation was 92%). Allergies and Home Medications Drug allergies reviewed: Yes (NKDA) Home medication list reviewed: Yes (no changes) Review of Systems Review of systems same as previous: Yes (no changes) Physical Exam Heart Rate: 88 O2 Saturation: 95 Height: 5 ft 10 in Weight: 366 lb Body Mass Index: 52.4 BMI Classification: Morbidly Obese Impression and Plan 1. Obstructive Sleep Apnea-Hypopnea Syndrome, severe, with lowest oxygen saturation of 74%. Obviously this is the cause of the patients symptoms of unrefreshed sleep, and excessive daytime sleepiness. Positive pressure therapy could benefit congestive heart failure, heart arrhythmia and diabetes. As mentioned above, the patient will be started on nasal autoCPAP therapy with pressure set at 4-15 cmH2O. A manual titration study will be completed if unable to find optimal treatment pressure with office adjustments. Compliance guidelines also reviewed. A copy of compliance guidelines will be given for reference at check out. Because the apnea is more severe supine, I instructed to avoid sleeping supine using pillow positioning until able to start CPAP use. * Nasal auto CPAP therapy, pressure at 4-15 cm H2O. * Attempt to lose weight. * Avoid alcohol consumption near bedtime. * Avoid supine sleep until using CPAP. * The patient is again cautioned about driving until sleepiness completely resolves. * Return one month after CPAP obtained. I will assess response to therapy and compliance at that time. Counseling Topics: Weight loss health impact Visit Type: In Office Time Spent with Patient (minutes): 22 Provider Statement: I spent 100% of the Face to Face Visit with the patient with greater than 50% spent counseling the patient and coordination of care.
== END 2020-08-16 14:17 | disposition home or self-care (01) ==
LOC: SC 14:16
PROVIDERS: ATTEND Nurse Practitioner Family
DX: G47.33 Obstructive sleep apnea (adult) (pediatric) (principal); R09.02 Hypoxemia; E66.01 Morbid (severe) obesity due to excess calories; Z68.43 Body mass index [BMI] 50.0-59.9, adult
CPT/HCPCS: 99212; 99213

== ENCOUNTER 2020-09-06 16:23 | Outpatient (CLI) | payer MEDICAID ==
[2020-09-06 21:43] LABS: THYROID STIMULATING HORMONE 3.69 uIU/mL (0.34-5.60)
[2020-09-06 21:45] LABS: FREE T4 (FREE THYROXINE) 0.96 ng/dL (0.58-1.64)
== END 2020-09-06 16:24 | disposition home or self-care (01) ==
LOC: LAB.N 16:23
PROVIDERS: ATTEND Internal Medicine
DX: I48.0 Paroxysmal atrial fibrillation (principal)
CPT/HCPCS: 36415; 84439; 84443

== ENCOUNTER 2020-10-26 14:03 | Outpatient (CLI) | payer MEDICAID ==
--- NOTE | 2020-10-26 14:29 | SLEEP CARE CONSULTATION ---
Information from patient questionnaire entered by Piper Sanchez. I have reviewed and concur with the information entered by Piper Sanchez. This document represents the service I personally performed and the decisions made by , Michelle Landaverde ARNP. History of Present Illness Service Date and Time: 10/26/2020 1403 Previous diagnosis: Severe, Obstructive Sleep Apnea-Hypopnea Syndrome AHI: 50.1 (in 2020) Reason for follow up: first compliance Equipment type: CPAP Equipment obtained from: [employer] (got initial supplies, got a ResMed) Mask style: Full face Mask brand: Resmed Backup mask available: Yes (other mask) Prior sleep studies: Yes Year and Where: 2020 - [facility] Type of Sleep Study: Home sleep study HPI additional information: REINA FALK was diagnosed to have severe, AHI 50.1, obstructive sleep apnea- hypopnea syndrome and returned today for CPAP therapy first compliance follow- up. CPAP Compliance Data - Data Reviewed with Patient Average duration of nightly device use: 6 hr 8 min Compliance rate %: 90 Current pressure setting (cmH2O): 4-15 (median 9.1, avg 12.8, max 14.3) Humidity settin Average residual AHI: 9.2 Subjective Patient concerns: reports: condensation in mask/hose (turned down the humidity to 2 due to condensation, resolved). denies: aerophagia, mask discomfort, air blowing in eyes, mask leak noise, nasal congestion, dry mouth, nose, throat, epistaxis, other Observed to snore while using device: No Current pressure setting perceived as: comfortable On therapy, patient: reports: sleeping better, awakening more refreshed, being more awake and alert during the day, more rested overall. denies: drowsiness while driving Initial [place] Sleepiness Scale score: 24 (in 2020) Current [place] Sleepiness Scale score: 21 Allergies and Home Medications Home medication list reviewed: Yes (no new meds) Review of Systems Review of systems same as previous: Yes (no changes) Physical Exam Heart Rate: 94 O2 Saturation: 98 Height: 5 ft 10 in Weight: 396 lb Body Mass Index: 56.8 BMI Classification: Morbidly Obese Impression and Plan 1. Obstructive Sleep Apnea-Hypopnea Syndrome, severe, with good treatment compliance and fair apnea control with elevated residual AHI. On CPAP therapy, the patient has better sleep quality and is more rested overall. The patients pressure will be changed to autoCPAP 12-15 cmH20 for elevation of residual AHI. Patient advised to contact me if pressure change is uncomfortable so that it can be adjusted. Goals for apnea control discussed. He is satisfied with his treatment so far and is planning on continuing fpc. He had some condensation in the mask but he reduced the humidity setting to 2 and this resolved. He denies any aerophagia, nasal congestion, oral dryness or mask discomfort. Patient's apnea severity and rationale for treatment to reduce apnea, improve sleep quality and reduce cardiovascular and cerebrovascular events was reviewed. I also reviewed the benefit of consistent device use of CP AP for congestive heart failure, arrhythmia, and diabetes. * Change auto CPAP pressure to 12-15 cmH2O * Notify me if snoring with mask or feeling that the pressure is too much or too little * Attempt to lose weight * Call this office if any problems using CPAP * Return for follow up in 1-2 months, or sooner if concerns arise Counseling Topics: Spare mask, Weight loss health impact Visit Type: In Office Time Spent with Patient (minutes): 22 Provider Statement: I spent 100% of the Face to Face Visit with the patient with greater than 50% spent counseling the patient and coordination of care.
== END 2020-10-26 14:04 | disposition home or self-care (01) ==
LOC: SC 14:03
PROVIDERS: ATTEND Nurse Practitioner Family
DX: G47.33 Obstructive sleep apnea (adult) (pediatric) (principal); E66.01 Morbid (severe) obesity due to excess calories; Z68.43 Body mass index [BMI] 50.0-59.9, adult
CPT/HCPCS: 99212; 99213

== ENCOUNTER 2020-12-26 13:53 | Outpatient (CLI) | payer MEDICAID ==
--- NOTE | 2020-12-26 14:35 | SLEEP CARE CONSULTATION ---
Information from patient questionnaire entered by Piper Sanchez. I have reviewed and concur with the information entered by Piper Sanchez. This document represents the service I personally performed and the decisions made by , Michelle Landaverde ARNP. History of Present Illness Service Date and Time: 12/26/2020 1353 Previous diagnosis: Severe, Obstructive Sleep Apnea-Hypopnea Syndrome AHI: 50.1 (in 2020) Reason for follow up: other (2 month with pressure change) Equipment type: CPAP Equipment obtained from: [email or web address] (getting supplies as needed) Mask style: Full face Mask brand: Resmed Backup mask available: No (will keep old mask when replaced) Last cushion change: almost 3 months Prior sleep studies: Yes Year and Where: 2020 - [facility] Type of Sleep Study: Home sleep study HPI additional information: REINA FALK was diagnosed to have severe, AHI 50.1, obstructive sleep apnea- hypopnea syndrome and returned today for CPAP therapy 2 month pressure change f ollow-up. CPAP Compliance Data - Data Reviewed with Patient Average duration of nightly device use: 6 hr 43 min Compliance rate %: 95 (60 days) Current pressure setting (cmH2O): 12-15 (median 12.9, avg 14.2, max 14.7) Humidity settin Average residual AHI: 5.7 Central apnea: 1.4 Obstructive apnea: 2.8 Subjective Missed days of use due to: reports: other (overnight dog sitting) Patient concerns: reports: dry mouth, nose, throat (just a little bit). denies: aerophagia, mask discomfort, air blowing in eyes, mask leak noise, condensation in mask/hose, nasal congestion, epistaxis, other Observed to snore while using device: No Current pressure setting perceived as: comfortable On therapy, patient: reports: sleeping better, awakening more refreshed, being more awake and alert during the day, more rested overall. denies: drowsiness wh ile driving Initial [place] Sleepiness Scale score: 24 (in 2020) Current [place] Sleepiness Scale score: 11 Allergies and Home Medications Home medication list reviewed: Yes (no changes) Review of Systems Review of systems same as previous: Yes (no changes) Physical Exam Heart Rate: 87 O2 Saturation: 98 Height: 5 ft 10 in Weight: 408 lb Body Mass Index: 58.5 BMI Classification: Morbidly Obese Impression and Plan 1. Obstructive Sleep Apnea-Hypopnea Syndrome, severe, with good treatment compliance and fair apnea control with minimal elevation of AHI. On CPAP therapy, the patient has better sleep quality and is more rested overall. The patients pressure will be changed to autoCPAP 13-16 cmH20 for elevation of residual AHI. Patient advised to contact me if pressure change is uncomfortable so that it can be adjusted. Goals for apnea control discussed. Patient's apnea s everity and rationale for treatment to reduce apnea, improve sleep quality and reduce cardiovascular and cerebrovascular events was reviewed. I also reviewed the benefit of consistent device use of CPAP for congestive heart failure, arrhythmia, and diabetes. 2. Obesity, unspecified. Patient has gained weight. Currently patients BMI is 58.5. Obesity increases the risk of apnea, CPAP pressure requirements and overall health risks especially cardiovascular and diabetes. Patient states that he has been stress eating since he is unable to work. He is trying to get disability and cannot return to work until the doctor releases him. He has been sitting at home and eating/snacking more often. Thus patient is advised to lose weight. Weight loss can be done with reducing portion size, reducing refined foods and balancing content with vegetables, fruit and whole grain foods. I encouraged him to change from processed snacks to vegetables like carrots or green peppers without dressing and he voiced understanding. The patient's CPAP pressure range should accommodate some weight loss. Symptoms to report for additional pressure adjustment discussed. He voiced understanding. * Change auto CPAP pressure to 13-16 cmH2O * Notify me if snoring with mask or feeling that the pressure is too much or too little * Attempt to lose weight * Call this office if any problems using CPAP * Return for follow up in 3 months, or sooner if concerns arise Counseling Topics: Spare mask, Weight loss health impact Visit Type: In Office Time Spent with Patient (minutes): 20 Provider Statement: I spent 100% of the Face to Face Visit with the patient with greater than 50% spent counseling the patient and coordination of care.
== END 2020-12-26 13:54 | disposition home or self-care (01) ==
LOC: SC 13:53
PROVIDERS: ATTEND Nurse Practitioner Family
DX: G47.33 Obstructive sleep apnea (adult) (pediatric) (principal); E66.01 Morbid (severe) obesity due to excess calories; Z68.43 Body mass index [BMI] 50.0-59.9, adult
CPT/HCPCS: 99212; 99213

== ENCOUNTER 2021-01-22 08:41 | Outpatient (CLI) | payer MEDICAID ==
[2021-01-22 12:32] LABS: BASOPHILS % (AUTO) 0.5 %; EOSINOPHILS # (AUTO) 0.1 10^3/uL (0.0-0.7); EOSINOPHILS % (AUTO) 1.4 %; HCT - HEMATOCRIT 40.5 % (42.0-52.0); HGB - HEMOGLOBIN 12.8 g/dL (14.0-18.0); LYMPHOCYTES # (AUTO) 1.1 10^3/uL (1.5-3.5); LYMPHOCYTES % (AUTO) 16.6 %; MEAN CORPUSCULAR HEMOGLOBIN 30.1 pg (27.0-31.0); MEAN CORPUSCULAR HGB CONC 31.6 g/dL (32.0-36.0); MEAN CORPUSCULAR VOLUME 95.3 fL (80.0-94.0); MONOCYTES # (AUTO) 0.5 10^3/uL (0.0-1.0); MONOCYTES % (AUTO) 7.3 %; NEUTROPHILS # (AUTO) 4.8 10^3/uL (1.5-6.6); NEUTROPHILS % (AUTO) 73.1 %; PLT - PLATELET COUNT 231 10^3/uL (130-450); RED BLOOD COUNT 4.25 10^6/uL (4.70-6.10); RED CELL DISTRIBUTION WIDTH 14.6 % (12.0-15.0); WHITE BLOOD COUNT 6.6 x10^3/uL (4.8-10.8)
[2021-01-22 12:56] LABS: ALBUMIN 4.2 g/dL (3.2-5.5); ALBUMIN/GLOBULIN RATIO 1.3 (1.0-2.2); ALKALINE PHOSPHATASE 86 IU/L (42-121); ALT ALANINE AMINOTRANSFERASE 38 IU/L (10-60); AST ASPARTATE AMINOTRANSFERASE 22 IU/L (10-42); BILIRUBIN,TOTAL 0.6 mg/dL (0.2-1.0); BUN - BLOOD UREA NITROGEN 20 mg/dL (6-20); CALCIUM 9.2 mg/dL (8.5-10.3); CARBON DIOXIDE - CO2 31 mmol/L (21-32); CHLORIDE 97 mmol/L (101-111); CHOLESTEROL 164 mg/dL; GFR - MDRD 77 (>89); GLUCOSE 97 mg/dL (70-100); HDL CHOLESTEROL 54 mg/dL; LDL CHOLESTEROL,CALCULATED 96 mg/dL; LDL/HDL RATIO 1.8 (<3.6); POTASSIUM 4.7 mmol/L (3.5-5.0); SODIUM 137 mmol/L (135-145); THYROID STIMULATING HORMONE 3.39 uIU/mL (0.34-5.60); TOTAL PROTEIN 7.4 g/dL (6.7-8.2); TRIGLYCERIDES 69 mg/dL; VLDL CHOLESTEROL 14 mg/dL
[2021-01-22 12:58] LABS: ESTIMATED AVERAGE GLUCOSE 131 mg/dL (70-100); HEMOGLOBIN A1c% 6.2 % (4.27-6.07)
[2021-01-22 18:25] LABS: MICROALBUM/CREATININE RATIO,UR 9.4 ug/mg (<30.0); MICROALBUMIN,URINE 1.6 mg/dL (0-300.0)
== END 2021-01-22 23:59 | disposition home or self-care (01) ==
LOC: LAB.WCP 08:41
PROVIDERS: ATTEND Internal Medicine
DX: E11.9 Type 2 diabetes mellitus without complications (principal); I48.91 Unspecified atrial fibrillation
CPT/HCPCS: 36415; 80050; 80061; 82043; 82570; 83036; 83721

== ENCOUNTER 2021-03-27 14:22 | Outpatient (CLI) | payer MEDICAID ==
[2021-03-27 14:53] VITALS: BP 118/71
--- NOTE | 2021-03-27 14:53 | SLEEP CARE CONSULTATION ---
Information from patient questionnaire entered by Alia Kwan. I have reviewed and concur with the information entered by Alia Kwan. This document represents the service I personally performed and the decisions made by , Michelle Landaverde ARNP. History of Present Illness Service Date and Time: 03/27/2021 1422 Previous diagnosis: Severe, Obstructive Sleep Apnea-Hypopnea Syndrome AHI: 50.1 (in 2020) Reason for follow up: three month (with pressure change) Equipment type: CPAP (ResMed) Equipment obtained from: [employer] (getting supplies as needed) Mask style: Full face Backup mask available: No (will need to keep old mask when replaced) Last cushion change: 4 days ago Prior sleep studies: Yes Year and Where: 2020 - [facility] Type of Sleep Study: Home sleep study HPI additional information: REINA FALK was diagnosed to have severe, AHI 50.1, obstructive sleep apnea- hypopnea syndrome and returned today for CPAP therapy three month with pressure change follow-up. Sleep Study - Results Type of Sleep Study: Home sleep study Prior sleep studies: Yes Year and Where: 2020 - [facility] CPAP Compliance Data - Data Reviewed with Patient Average duration of nightly device use: 6 hours 16 minutes Compliance rate %: 100 Current pressure setting (cmH2O): 13-16 Average residual AHI: 5 Central apnea: 1.5 Obstructive apnea: 2.2 Hypopnea: 1.1 Subjective Patient concerns: denies: aerophagia, mask discomfort, air blowing in eyes, mask leak noise, condensation in mask/hose, nasal congestion, dry mouth, nose, throat, epistaxis, other Observed to snore while using device: No Current pressure setting perceived as: comfortable On therapy, patient: reports: sleeping better, awakening more refreshed, being more awake and alert during the day, more rested overall. denies: drowsiness while driving Initial [place] Sleepiness Scale score: 24 (in 2020) Current [place] Sleepiness Scale score: 9 Allergies and Home Medications Home medication list reviewed: Yes (Victoza started and off Glipizide) Review of Systems Review of systems same as previous: Yes (no changes) Physical Exam Blood Pressure: 118/71 (right) Cuff size: wrist Heart Rate: 97 O2 Saturation: 97 Height: 5 ft 10 in Weight: 407 lb Weight change since last visit: 1 lb loss Body Mass Index: 58.3 BMI Classification: Morbidly Obese Impression and Plan 1. Obstructive Sleep Apnea-Hypopnea Syndrome, severe, with good treatment compliance and good apnea control. On CPAP therapy, the patient has better sleep quality and is more rested overall. Patient has significant improvement of his sleep apnea and is satisfied with current CPAP treatment. His residual AHI is at 5. He feels the pressure is comfortable and would like to keep it there for now. I will not adjust his pressure at this visit. Patient's apnea severity and rationale for treatment to reduce apnea, improve sleep quality and reduce cardiovascular and cerebrovascular events was reviewed. I also reviewed the benefit of consistent device use of CPAP for cardiac disease (CHF), arrhythmia, and diabetes. 2. Morbid Obesity, unspecified. Currently patients BMI is 58.3. Obesity increases the risk of apnea, CPAP pressure requirements and overall health risks especially cardiovascular and diabetes. Thus patient is advised to try to lose weight. Patient is trying to eat more healthy but will occasionally indulge him self. He is not exercising regularly. I encouraged him to start light activity such as walking. He can walk one time around his block and then each week increase times around to block to increase activity. He can go as tolerated. The patient's CPAP pressure range should accommodate some weight loss. Symptoms to report for additional pressure adjustment discussed. Patient voiced understanding. * Continue auto CPAP pressure at 13-16 cmH2O * Notify me if snoring with mask or feeling that the pressure is too much or too little * Attempt to lose weight * Call this office if any problems using CPAP * Return for follow up in 3 months, or sooner if concerns arise Counseling Topics: Spare mask, Weight loss health impact Visit Type: In Office Time Spent with Patient (minutes): 19 Provider Statement: I spent 100% of the Face to Face Visit with the patient with greater than 50% spent counseling the patient and coordination of care.
== END 2021-03-27 14:23 | disposition home or self-care (01) ==
LOC: SC 14:22
PROVIDERS: ATTEND Nurse Practitioner Family
DX: G47.33 Obstructive sleep apnea (adult) (pediatric) (principal); E66.01 Morbid (severe) obesity due to excess calories; Z68.43 Body mass index [BMI] 50.0-59.9, adult
CPT/HCPCS: 99212

== ENCOUNTER 2021-04-23 08:00 | Outpatient (CLI) | payer MEDICAID ==
[2021-04-23 12:25] LABS: BUN - BLOOD UREA NITROGEN 16 mg/dL (6-20); CALCIUM 9.4 mg/dL (8.5-10.3); CARBON DIOXIDE - CO2 28 mmol/L (21-32); CHLORIDE 98 mmol/L (101-111); CHOL/HDL RATIO 3.3 (<5.0); CHOLESTEROL 164 mg/dL; GFR - MDRD 77 (>89); GLUCOSE 118 mg/dL (70-100); HDL CHOLESTEROL 49 mg/dL; LDL CHOLESTEROL,CALCULATED 82 mg/dL; LDL/HDL RATIO 1.7 (<3.6); POTASSIUM 4.4 mmol/L (3.5-5.0); SODIUM 138 mmol/L (135-145); TRIGLYCERIDES 167 mg/dL; VLDL CHOLESTEROL 33 mg/dL
[2021-04-23 12:41] LABS: ESTIMATED AVERAGE GLUCOSE 134 mg/dL (70-100); HEMOGLOBIN A1c% 6.3 % (4.27-6.07)
[2021-04-23 14:49] LABS: CREATININE,URINE 179.9 mg/dL; MICROALBUM/CREATININE RATIO,UR 31.1 ug/mg (<30.0); MICROALBUMIN,URINE 5.6 mg/dL (0-300.0)
== END 2021-04-23 23:59 | disposition home or self-care (01) ==
LOC: LAB.WCP 08:00
PROVIDERS: ATTEND Internal Medicine
DX: I42.9 Cardiomyopathy, unspecified (principal); E11.9 Type 2 diabetes mellitus without complications; D35.2 Benign neoplasm of pituitary gland
CPT/HCPCS: 36415; 80048; 80061; 82043; 82570; 83036; 83721; 84146

== ENCOUNTER 2021-06-18 11:10 | Outpatient (CLI) | payer MEDICAID ==
[2021-06-18 19:04] LABS: CREATININE 0.9 mg/dL (0.6-1.2); POTASSIUM 4.7 mmol/L (3.5-5.0)
== END 2021-06-18 11:11 | disposition home or self-care (01) ==
LOC: LAB.N 11:10
PROVIDERS: ATTEND Internal Medicine
DX: I48.0 Paroxysmal atrial fibrillation (principal)
CPT/HCPCS: 36415; 80048

== ENCOUNTER 2021-06-27 13:39 | Outpatient (CLI) | payer MEDICAID ==
[2021-06-27 14:28] VITALS: BP 115/53
--- NOTE | 2021-06-27 14:28 | SLEEP CARE CONSULTATION ---
Information from patient questionnaire entered by Devendra Leedzma MA. I have reviewed and concur with the information entered by Devendra Ledezma MA. This document represents the service I personally performed and the decisions made by , Michelle Landaverde ARNP. History of Present Illness Service Date and Time: 06/27/2021 1339 Previous diagnosis: Severe, Obstructive Sleep Apnea-Hypopnea Syndrome AHI: 50.1 (in 2020) Reason for follow up: three month Equipment type: CPAP (ResMed) Equipment obtained from: [employer] (getting supplies as needed) Mask style: Full face Backup mask available: Yes (old mask) Last cushion change: 2 months Prior sleep studies: Yes Year and Where: 2020 - [facility] Type of Sleep Study: Home sleep study HPI additional information: REINA FALK was diagnosed to have severe, AHI 50.1, obstructive sleep apnea- hypopnea syndrome and returned today for CPAP therapy three month follow-up. Sleep Study - Results Type of Sleep Study: Home sleep study Prior sleep studies: Yes Year and Where: 2020 - [facility] CPAP Compliance Data - Data Reviewed with Patient Average duration of nightly device use: 5 HOURS 43 MINUTES Compliance rate %: 98 Current pressure setting (cmH2O): 13-16 Average residual AHI: 3.1 Central apnea: 1.0 Obstructive apnea: 1.2 Average large leak: 19.5 Subjective Missed days of use due to: reports: family emergency Patient concerns: denies: aerophagia, mask discomfort, air blowing in eyes, mask leak noise, condensation in mask/hose, nasal congestion, dry mouth, nose, throat, epistaxis, other Observed to snore while using device: No Current pressure setting perceived as: comfortable On therapy, patient: reports: sleeping better, awakening more refreshed, being more awake and alert during the day, more rested overall. denies: drowsiness while driving Initial [place] Sleepiness Scale score: 24 (in 2020) Current [place] Sleepiness Scale score: 13 (222) Allergies and Home Medications Known drug allergies: No Drug allergies reviewed: Yes Home medication list reviewed: Yes (Entresto added, Lisinopril stopped) Review of Systems Review of systems same as previous: Yes (no changes) Physical Exam Vital signs obtained and entered by: [employer] AAMA Blood Pressure: 115/53 (LEFT) Cuff size: wrist Heart Rate: 100 O2 Saturation: 100 (WITH PAPER MASK) Height: 5 ft 10 in Weight: 411 lb (WITH CLOTHES) Weight change since last visit: 4 lb gain Body Mass Index: 58.9 BMI Classification: Morbidly Obese Impression and Plan 1. Obstructive Sleep Apnea-Hypopnea Syndrome, severe, with excellent treatment compliance and good apnea control. On CPAP therapy, the patient has better sleep quality and is more rested overall. Patient has no issues or complaints. He is satisfied with current CPAP therapy and significant improvement of his sleep apnea. Patient's apnea severity and rationale for treatment to reduce apnea, improve sleep quality and reduce cardiovascular and cerebrovascular events was reviewed. I also reviewed the benefit of consistent device use of CPAP for cardiac disease (CHF), arrhythmia and diabetes. 2. Obesity, unspecified. Patient has gained weight. Currently patients BMI is 58.9. Obesity increases the risk of apnea, CPAP pressure requirements and overall health risks especially cardiovascular and diabetes. Thus patient is advised to lose weight. Weight loss can be done with reducing portion size, reducing refined foods and balancing content with vegetables, fruit and whole grain foods. In addition, patient encouraged to get regular exercise. The patient's CPAP pressure range should accommodate some weight loss. Symptoms to report for additional pressure adjustment discussed. Patient was encouraged to lose weight for their overall health and to reduce apneas. * Continue auto CPAP pressure at 13-16 cmH2O * Notify me if snoring with mask or feeling that the pressure is too much or too little * Attempt to lose weight * Call this office if any problems using CPAP * Return for follow up in 6 months, or sooner if concerns arise Counseling Topics: Spare mask, Weight loss health impact Visit Type: In Office Time Spent with Patient (minutes): 16 Provider Statement: I spent 100% of the Face to Face Visit with the patient with greater than 50% spent counseling the patient and coordination of care.
== END 2021-06-27 13:40 | disposition home or self-care (01) ==
LOC: SC 13:39
PROVIDERS: ATTEND Nurse Practitioner Family
DX: G47.33 Obstructive sleep apnea (adult) (pediatric) (principal); E66.01 Morbid (severe) obesity due to excess calories; Z68.43 Body mass index [BMI] 50.0-59.9, adult
CPT/HCPCS: 99212

== ENCOUNTER 2021-07-16 08:35 | Outpatient (CLI) | payer MEDICAID ==
[2021-07-16 12:25] LABS: ALBUMIN 4.1 g/dL (3.2-5.5); ALBUMIN/GLOBULIN RATIO 1.3 (1.0-2.2); BILIRUBIN,TOTAL 0.7 mg/dL (0.2-1.0); CALCIUM 9.4 mg/dL (8.5-10.3); CREATININE 1.1 mg/dL (0.6-1.2); POTASSIUM 4.4 mmol/L (3.5-5.0); TOTAL PROTEIN 7.3 g/dL (6.7-8.2)
[2021-07-16 12:40] LABS: ESTIMATED AVERAGE GLUCOSE 148 mg/dL (70-100); HEMOGLOBIN A1c% 6.8 % (4.27-6.07)
== END 2021-07-16 08:36 | disposition home or self-care (01) ==
LOC: LAB.N 08:35
PROVIDERS: ATTEND Internal Medicine
DX: E11.9 Type 2 diabetes mellitus without complications (principal)
CPT/HCPCS: 36415; 80053; 83036

== ENCOUNTER 2021-08-27 07:44 | Outpatient (CLI) | payer MEDICAID | END 2021-08-27 07:45 | disposition home or self-care (01) | LOC: LAB.N 07:44 | PROVIDERS: ATTEND Internal Medicine | DX: Z53.9 Procedure and treatment not carried out, unspecified reason (principal) ==

== ENCOUNTER 2021-09-11 08:11 | Outpatient (CLI) | payer MEDICAID ==
--- NOTE | 2021-09-11 09:06 | XRAY Report ---
PROCEDURE: Chest 2 View X-Ray INDICATIONS: PULMONARY NODULE, RIGHT MIDDLE LOBE TECHNIQUE: 2 view(s) of the chest. COMPARISON: July 04, 2020. FINDINGS: SUPPORT DEVICES: None. LUNGS/PLEURA: No focal consolidation, pleural effusion or space-occupying pneumothorax. MEDIASTINUM: The cardiomediastinal silhouette is within normal limits. BONES/SOFT TISSUES: No acute abnormality. IMPRESSION: 1.No acute cardiopulmonary abnormality. 2.No discrete pulmonary nodule. Consider CT imaging for further evaluation. Reviewed by: Osvaldo Oconnell MD on 09/11/2021 9:05 AM PDT Approved by: Osvaldo Oconnell MD on 09/11/2021 9:05 AM PDT Station ID: [id number]
== END 2021-09-11 08:12 | disposition home or self-care (01) ==
LOC: DI.N 08:11
PROVIDERS: ATTEND Internal Medicine
DX: R91.1 Solitary pulmonary nodule (principal)

== ENCOUNTER 2021-10-30 07:14 | Outpatient (CLI) | payer MEDICAID ==
[2021-10-30 12:26] LABS: ALBUMIN 4.2 g/dL (3.2-5.5); ALBUMIN/GLOBULIN RATIO 1.2 (1.0-2.2); ALKALINE PHOSPHATASE 80 IU/L (42-121); ALT ALANINE AMINOTRANSFERASE 33 IU/L (10-60); AST ASPARTATE AMINOTRANSFERASE 23 IU/L (10-42); BILIRUBIN,TOTAL 0.5 mg/dL (0.2-1.0); BUN - BLOOD UREA NITROGEN 23 mg/dL (6-20); CALCIUM 9.3 mg/dL (8.5-10.3); CARBON DIOXIDE - CO2 26 mmol/L (21-32); CHLORIDE 97 mmol/L (101-111); CHOL/HDL RATIO 3.5 (<5.0); CHOLESTEROL 166 mg/dL; CREATININE 1.1 mg/dL (0.6-1.2); GFR - MDRD 69 (>89); GLUCOSE 149 mg/dL (70-100); HDL CHOLESTEROL 48 mg/dL; LDL CHOLESTEROL,CALCULATED 96 mg/dL; POTASSIUM 4.5 mmol/L (3.5-5.0); SODIUM 138 mmol/L (135-145); TOTAL PROTEIN 7.6 g/dL (6.7-8.2); TRIGLYCERIDES 110 mg/dL; VLDL CHOLESTEROL 22 mg/dL
[2021-10-30 12:31] LABS: THYROID STIMULATING HORMONE 3.9 uIU/mL (0.34-5.60)
[2021-10-30 12:34] LABS: PROLACTIN 2.61 ng/mL
[2021-10-30 14:55] LABS: ESTIMATED AVERAGE GLUCOSE 146 mg/dL (70-100); HEMOGLOBIN A1c% 6.7 % (4.27-6.07)
== END 2021-10-30 07:15 | disposition home or self-care (01) ==
LOC: LAB.N 07:14
PROVIDERS: ATTEND Internal Medicine
DX: I10 Essential (primary) hypertension (principal); E11.9 Type 2 diabetes mellitus without complications; D35.2 Benign neoplasm of pituitary gland; Z12.5 Encounter for screening for malignant neoplasm of prostate
CPT/HCPCS: 36415; 80053; 80061; 83036; 83721; 84146; 84153; 84443

== ENCOUNTER 2022-02-13 14:00 | Outpatient (CLI) | payer MEDICAID ==
--- NOTE | 2022-02-13 19:16 | XRAY Report ---
PROCEDURE: Knee 3 View LT INDICATIONS: Left knee pain TECHNIQUE: 3 views of the left knee(s) were acquired. COMPARISON: None. FINDINGS: Bones: No fractures or dislocations. No suspicious bony lesions. Soft tissues: No joint effusion. No suspicious soft tissue calcifications. IMPRESSION: 1. Unremarkable left knee radiographs Reviewed by: Dandy Jaime MD on 02/13/2022 6:15 PM [email or web address] Approved by: Dandy Jaime MD on 02/13/2022 6:15 PM AKDT Station ID: [id number]
== END 2022-02-13 14:01 | disposition home or self-care (01) ==
LOC: DI.N 14:00
PROVIDERS: ATTEND Internal Medicine
DX: M25.562 Pain in left knee (principal); M71.22 Synovial cyst of popliteal space [Baker], left knee

== ENCOUNTER 2022-03-29 09:23 | Outpatient (CLI) | payer MEDICAID ==
[2022-03-29 12:30] LABS: BASOPHILS % (AUTO) 0.3 %; EOSINOPHILS # (AUTO) 0.1 10^3/uL (0.0-0.7); EOSINOPHILS % (AUTO) 1.3 %; HCT - HEMATOCRIT 39.6 % (42.0-52.0); HGB - HEMOGLOBIN 12.2 g/dL (14.0-18.0); LYMPHOCYTES % (AUTO) 13.5 %; MEAN CORPUSCULAR HEMOGLOBIN 29.1 pg (27.0-31.0); MEAN CORPUSCULAR HGB CONC 30.8 g/dL (32.0-36.0); MEAN CORPUSCULAR VOLUME 94.5 fL (80.0-94.0); MEAN PLATELET VOLUME 12.5 fL (7.4-11.4); MONOCYTES # (AUTO) 0.5 10^3/uL (0.0-1.0); MONOCYTES % (AUTO) 6.7 %; NEUTROPHILS # (AUTO) 5.6 10^3/uL (1.5-6.6); NEUTROPHILS % (AUTO) 77.8 %; PLT - PLATELET COUNT 244 10^3/uL (130-450); RED BLOOD COUNT 4.19 10^6/uL (4.70-6.10); RED CELL DISTRIBUTION WIDTH 14.6 % (12.0-15.0); WHITE BLOOD COUNT 7.2 x10^3/uL (4.8-10.8)
[2022-03-29 12:56] LABS: CREATININE,URINE 204.2 mg/dL; MICROALBUM/CREATININE RATIO,UR 13.7 ug/mg (<30.0); MICROALBUMIN,URINE 2.8 mg/dL (0-300.0)
[2022-03-29 13:15] LABS: ALBUMIN 4.1 g/dL (3.2-5.5); ALBUMIN/GLOBULIN RATIO 1.5 (1.0-2.2); ALKALINE PHOSPHATASE 66 IU/L (42-121); ALT ALANINE AMINOTRANSFERASE 31 IU/L (10-60); AST ASPARTATE AMINOTRANSFERASE 17 IU/L (10-42); BILIRUBIN,TOTAL 0.4 mg/dL (0.2-1.0); BUN - BLOOD UREA NITROGEN 25 mg/dL (6-20); CALCIUM 9.1 mg/dL (8.5-10.3); CARBON DIOXIDE - CO2 29 mmol/L (21-32); CHLORIDE 102 mmol/L (101-111); CHOL/HDL RATIO 3.2 (<5.0); CHOLESTEROL 152 mg/dL; CREATININE 1.3 mg/dL (0.6-1.2); GFR - MDRD 57 (>89); GLUCOSE 146 mg/dL (70-100); HDL CHOLESTEROL 47 mg/dL; LDL CHOLESTEROL,CALCULATED 87 mg/dL; LDL/HDL RATIO 1.9 (<3.6); POTASSIUM 4.6 mmol/L (3.5-5.0); SODIUM 140 mmol/L (135-145); THYROID STIMULATING HORMONE 2.35 uIU/mL (0.34-5.60); TOTAL PROTEIN 6.8 g/dL (6.7-8.2); TRIGLYCERIDES 92 mg/dL; VLDL CHOLESTEROL 18 mg/dL
[2022-03-29 13:41] LABS: ESTIMATED AVERAGE GLUCOSE 140 mg/dL (70-100); HEMOGLOBIN A1c% 6.5 % (4.27-6.07)
== END 2022-03-29 09:24 | disposition home or self-care (01) ==
LOC: LAB.N 09:23
PROVIDERS: ATTEND Internal Medicine
DX: I10 Essential (primary) hypertension (principal); E11.9 Type 2 diabetes mellitus without complications; I48.91 Unspecified atrial fibrillation; I42.9 Cardiomyopathy, unspecified
CPT/HCPCS: 36415; 80050; 80061; 82043; 82570; 83036; 83721

== ENCOUNTER 2022-04-01 08:00 | Outpatient (CLI) | payer MEDICAID ==
[2022-04-01 21:01] LABS: FECAL OCCULT BLOOD (FIT) NEGATIVE (NEGATIVE)
== END 2022-04-01 23:59 | disposition home or self-care (01) ==
LOC: LAB.N 08:00
PROVIDERS: ATTEND Internal Medicine
DX: Z12.11 Encounter for screening for malignant neoplasm of colon (principal)
CPT/HCPCS: 82274

== ENCOUNTER 2022-04-12 07:24 | Outpatient (CLI) | payer MEDICAID | END 2022-04-12 07:25 | disposition home or self-care (01) | LOC: LAB.N 07:24 | PROVIDERS: ATTEND Internal Medicine | DX: Z53.9 Procedure and treatment not carried out, unspecified reason (principal) ==

== ENCOUNTER 2022-04-12 07:35 | Outpatient (CLI) | payer MEDICAID ==
[2022-04-12 12:49] LABS: CALCIUM 8.8 mg/dL (8.5-10.3); CREATININE 1.1 mg/dL (0.6-1.2); INR 1.2 (0.8-1.2); POTASSIUM 4.6 mmol/L (3.5-5.0); PT - PROTHROMBIN TIME 13.3 secs (9.9-12.6)
[2022-04-12 12:58] LABS: BASOPHILS % (AUTO) 0.4 %; EOSINOPHILS # (AUTO) 0.1 10^3/uL (0.0-0.7); EOSINOPHILS % (AUTO) 1.5 %; HCT - HEMATOCRIT 41.4 % (42.0-52.0); HGB - HEMOGLOBIN 12.6 g/dL (14.0-18.0); LYMPHOCYTES % (AUTO) 15.2 %; MEAN CORPUSCULAR HEMOGLOBIN 28.8 pg (27.0-31.0); MEAN CORPUSCULAR HGB CONC 30.4 g/dL (32.0-36.0); MEAN CORPUSCULAR VOLUME 94.5 fL (80.0-94.0); MEAN PLATELET VOLUME 12.6 fL (7.4-11.4); MONOCYTES # (AUTO) 0.5 10^3/uL (0.0-1.0); MONOCYTES % (AUTO) 7.5 %; NEUTROPHILS # (AUTO) 5.1 10^3/uL (1.5-6.6); NEUTROPHILS % (AUTO) 74.8 %; PLT - PLATELET COUNT 259 10^3/uL (130-450); RED BLOOD COUNT 4.38 10^6/uL (4.70-6.10); RED CELL DISTRIBUTION WIDTH 14.4 % (12.0-15.0); WHITE BLOOD COUNT 6.8 x10^3/uL (4.8-10.8)
== END 2022-04-12 07:36 | disposition home or self-care (01) ==
LOC: LAB.N 07:35
PROVIDERS: ATTEND Internal Medicine
DX: Z01.812 Encounter for preprocedural laboratory examination (principal); I48.0 Paroxysmal atrial fibrillation; Z20.822 Contact with and (suspected) exposure to COVID-19
CPT/HCPCS: 36415; 80048; 85025; 85610

== ENCOUNTER 2022-04-12 07:41 | Outpatient (CLI) | payer MEDICAID | END 2022-04-12 07:42 | disposition home or self-care (01) | LOC: LAB.N 07:41 | PROVIDERS: ATTEND Internal Medicine | DX: Z53.9 Procedure and treatment not carried out, unspecified reason (principal) ==

== ENCOUNTER 2022-06-17 07:23 | Outpatient (CLI) | payer MEDICAID ==
[2022-06-17 12:41] LABS: BASOPHILS % (AUTO) 0.4 %; EOSINOPHILS # (AUTO) 0.1 10^3/uL (0.0-0.7); HCT - HEMATOCRIT 40.6 % (42.0-52.0); HGB - HEMOGLOBIN 12.5 g/dL (14.0-18.0); MEAN CORPUSCULAR HEMOGLOBIN 29.4 pg (27.0-31.0); MEAN CORPUSCULAR HGB CONC 30.8 g/dL (32.0-36.0); MEAN CORPUSCULAR VOLUME 95.5 fL (80.0-94.0); MEAN PLATELET VOLUME 13.2 fL (7.4-11.4); MONOCYTES # (AUTO) 0.5 10^3/uL (0.0-1.0); MONOCYTES % (AUTO) 6.9 %; NEUTROPHILS # (AUTO) 5.6 10^3/uL (1.5-6.6); PLT - PLATELET COUNT 228 10^3/uL (130-450); RED BLOOD COUNT 4.25 10^6/uL (4.70-6.10); RED CELL DISTRIBUTION WIDTH 15.5 % (12.0-15.0); WHITE BLOOD COUNT 7.2 x10^3/uL (4.8-10.8)
[2022-06-17 13:05] LABS: ALBUMIN 4.1 g/dL (3.2-5.5); ALBUMIN/GLOBULIN RATIO 1.2 (1.0-2.2); BILIRUBIN,TOTAL 0.6 mg/dL (0.2-1.0); CALCIUM 9.4 mg/dL (8.5-10.3); CREATININE 1.1 mg/dL (0.6-1.2); POTASSIUM 4.3 mmol/L (3.5-5.0); TOTAL PROTEIN 7.5 g/dL (6.7-8.2)
[2022-06-17 13:10] LABS: ESTIMATED AVERAGE GLUCOSE 146 mg/dL (70-100); HEMOGLOBIN A1c% 6.7 % (4.27-6.07)
[2022-06-17 13:23] LABS: CHOL/HDL RATIO 2.5 (<5.0); CHOLESTEROL 127 mg/dL; HDL CHOLESTEROL 51 mg/dL; LDL CHOLESTEROL,CALCULATED 59 mg/dL; LDL/HDL RATIO 1.2 (<3.6); TRIGLYCERIDES 83 mg/dL; VLDL CHOLESTEROL 17 mg/dL
== END 2022-06-17 07:24 | disposition home or self-care (01) ==
LOC: LAB.N 07:23
PROVIDERS: ATTEND Internal Medicine
DX: I42.9 Cardiomyopathy, unspecified (principal); E11.9 Type 2 diabetes mellitus without complications; D35.2 Benign neoplasm of pituitary gland; I48.0 Paroxysmal atrial fibrillation; E78.5 Hyperlipidemia, unspecified
CPT/HCPCS: 36415; 80053; 80061; 83036; 83721; 84146; 85025

== ENCOUNTER 2022-10-23 08:00 | Outpatient (CLI) | payer MEDICARE, MEDICAID | END 2022-10-23 23:59 | disposition home or self-care (01) | LOC: LAB.N 08:00 | PROVIDERS: ATTEND Internal Medicine | DX: Z79.01 Long term (current) use of anticoagulants (principal); I48.91 Unspecified atrial fibrillation ==

== ENCOUNTER 2022-11-18 08:49 | Outpatient (CLI) | payer MEDICARE, MEDICAID ==
[2022-11-18 13:05] LABS: THYROID STIMULATING HORMONE 2.04 uIU/mL (0.34-5.60)
== END 2022-11-18 08:50 | disposition home or self-care (01) ==
LOC: LAB.N 08:49
PROVIDERS: ATTEND Internal Medicine
DX: I48.0 Paroxysmal atrial fibrillation (principal)
CPT/HCPCS: 36415; 83036; 84443

== ENCOUNTER 2022-11-20 08:00 | Outpatient (CLI) | payer MEDICARE, MEDICAID | END 2022-11-20 08:01 | disposition home or self-care (01) | LOC: LAB.N 08:00 | PROVIDERS: ATTEND Internal Medicine | DX: I48.91 Unspecified atrial fibrillation (principal); Z79.01 Long term (current) use of anticoagulants ==

== ENCOUNTER 2023-01-29 08:00 | Outpatient (CLI) | payer MEDICARE | END 2023-01-29 23:59 | disposition home or self-care (01) | LOC: LAB.WCP 08:00 | PROVIDERS: ATTEND Internal Medicine | DX: Z79.01 Long term (current) use of anticoagulants (principal); I48.91 Unspecified atrial fibrillation ==

== ENCOUNTER 2023-02-05 14:05 | Outpatient (CLI) | payer MEDICARE ==
--- NOTE | 2023-02-05 14:12 | Sleep Patient Instructions ---
Sleep Center Visit Summary - Patient Visit Information Reason for Visit: ANNUAL VISIT - Patient Instructions Additional Instructions: You will continue with CPAP therapy with pressure set at 13-16 cmH2O. A supply prescription will be updated with your DME. We encourage you to continue to try to lose weight. Please follow up with the sleep care office in 1 year. - Clinic Information Contact: [facility] [address] [place] [address] [email or web address] T: [phone]
--- NOTE | 2023-02-05 14:16 | SLEEP CARE CONSULTATION ---
Information from patient questionnaire entered by Rosemarie Collazo. I have reviewed and concur with the information entered by Rosemarie Collazo. This document represents the service I personally performed and the decisions made by me, Michelle Landaverde ARNP. History of Present Illness Service Date and Time: 02/05/2023 1400 Previous diagnosis: Severe, Obstructive Sleep Apnea-Hypopnea Syndrome AHI: 50.1 (in 2020) Reason for follow up: annual (LAST SEEN 01/2022) Equipment type: CPAP (ResMed 10; s/u 4-2020) Equipment obtained from: [employer] (getting supplies as needed) Mask style: Full face Mask brand: Resmed (AirTouch [email or web address]) Backup mask available: Yes (old mask) Last cushion change: 1 month [facility]: Yes [facility] Type of Sleep Study: Home sleep study HPI additional information: REINA FALK was diagnosed to have severe, AHI 50.1, obstructive sleep apnea- hypopnea syndrome and returned today for CPAP therapy annual follow-up. Sleep Study - Results Type of Sleep Study: Home sleep study Prior sleep [facility]: Yes [facility] CP[facility] Compliance Data - Data Reviewed with Patient Average duration of nightly device use: 5 HRS 48 MIN Compliance rate %: 85 (08/07/22-02/02/23; 161/180 days used) Current pressure setting (cmH2O): 13-16 Average residual AHI: 2.8 Central apnea: 1.2 Obstructive apnea: 0.7 Hypopnea: 0.8 Average large leak: 2.8 L/min Subjective Missed days of use due to: reports: other (heat ) Patient concerns: reports: dry mouth, nose, throat. denies: aerophagia, mask discomfort, air blowing in eyes, mask leak noise, condensation in mask/hose, nasal congestion, epistaxis Observed to snore while using device: No Current pressure setting perceived as: comfortable On therapy, patient: reports: sleeping better, awakening more refreshed, being more awake and alert during the day, more rested overall. denies: drowsiness while driving Initial [place] Sleepiness Scale score: 24 (in 2020) Current [place] Sleepiness Scale score: 12 (02/05/23) Allergies and Home Medications Known drug allergies: No Drug allergies reviewed: Yes Home medication list reviewed: Yes (no changes) Allergy and home medication list: Allergies No Known Drug Allergies Allergy (Verified 02/04/23 15:34) Review of Systems Review of systems same as previous: Yes (no changes) Physical Exam Vital signs obtained and entered by: ROSEMARIE Weathers MA Blood Pressure: 142/98 (LEFT ARM) Cuff size: long Heart Rate: 97 O2 Saturation: 98 Height: 5 ft 10 in Weight: 390 lb Weight change since last visit: 23 lb loss Body Mass Index: 55.9 BMI Classification: Morbidly Obese Impression and Plan 1. Obstructive Sleep Apnea-Hypopnea Syndrome, severe, with good treatment compliance and good apnea control. On CPAP therapy, the patient has better sleep quality and is more rested overall. Patient has significant improvement of their sleep apnea and is satisfied with current CPAP therapy. Patient gets dry mouth but states is not a problem. He states he sometimes does not use a humidifier because he does not like that he did air. Patient's apnea severity and rationale for treatment to reduce apnea, improve sleep quality and reduce cardiovascular and cerebrovascular events was reviewed. I also reviewed the benefit of consistent device use of CPAP for cardiac disease (CHF), arrhythmia and diabetes. 2. Obesity, unspecified. Currently patients BMI is 55.9. Obesity increases the risk of apnea, CPAP pressure requirements and overall health risks especially cardiovascular and diabetes. Thus patient is advised to lose weight. * Continue auto CPAP pressure at 13-16 cmH2O * Update supplies * Notify me if snoring with mask or feeling that the pressure is too much or too little * Attempt to lose weight * Call this office if any problems using CPAP * Return for follow up in 1 year, or sooner if concerns arise Counseling Topics: Weight loss health impact Prescriptions: Device supplies Visit Type: In Office Time Spent with Patient (minutes): 22 Provider Statement: I spent 100% of the Face to Face Visit with the patient with greater than 50% spent counseling the patient and coordination of care.
[2023-02-06 10:57] VITALS: BP 142/98; O2SAT 98
== END 2023-02-05 14:06 | disposition home or self-care (01) ==
LOC: SC 14:05
PROVIDERS: ATTEND Nurse Practitioner Family
DX: G47.33 Obstructive sleep apnea (adult) (pediatric) (principal); E66.01 Morbid (severe) obesity due to excess calories; Z68.43 Body mass index [BMI] 50.0-59.9, adult
CPT/HCPCS: 99213; G0463; 99212

== ENCOUNTER 2023-02-17 08:00 | Outpatient (CLI) | payer MEDICARE | END 2023-02-17 23:59 | disposition home or self-care (01) | LOC: LAB.N 08:00 | PROVIDERS: ATTEND Internal Medicine | DX: Z79.01 Long term (current) use of anticoagulants (principal); I48.91 Unspecified atrial fibrillation ==

== ENCOUNTER 2023-03-18 07:19 | Outpatient (CLI) | payer MEDICARE ==
[2023-03-18 12:46] LABS: ALBUMIN 4.4 g/dL (3.2-5.5); ALBUMIN/GLOBULIN RATIO 1.7 (1.0-2.2); ALKALINE PHOSPHATASE 87 IU/L (42-121); ALT ALANINE AMINOTRANSFERASE 25 IU/L (10-60); AST ASPARTATE AMINOTRANSFERASE 15 IU/L (10-42); BILIRUBIN,TOTAL 0.4 mg/dL (0.2-1.0); BUN - BLOOD UREA NITROGEN 32 mg/dL (6-20); CALCIUM 9.8 mg/dL (8.5-10.3); CARBON DIOXIDE - CO2 30 mmol/L (21-32); CHLORIDE 101 mmol/L (101-111); CHOL/HDL RATIO 2.1 (<5.0); CHOLESTEROL 116 mg/dL; CREATININE 1.2 mg/dL (0.6-1.3); GFR - MDRD 62 (>89); GLUCOSE 91 mg/dL (74-104); HDL CHOLESTEROL 55 mg/dL; LDL CHOLESTEROL,CALCULATED 29 mg/dL; LDL/HDL RATIO 0.5 (<3.6); POTASSIUM 4.5 mmol/L (3.5-4.5); SODIUM 139 mmol/L (135-145); TRIGLYCERIDES 162 mg/dL (48-352); VLDL CHOLESTEROL 32 mg/dL
== END 2023-03-18 07:20 | disposition home or self-care (01) ==
LOC: LAB.N 07:19
PROVIDERS: ATTEND Internal Medicine
DX: I48.0 Paroxysmal atrial fibrillation (principal)
CPT/HCPCS: 36415; 80053; 80061; 83721

== ENCOUNTER 2023-04-02 08:00 | Outpatient (CLI) | payer MEDICARE | END 2023-04-02 23:59 | disposition home or self-care (01) | LOC: LAB.WCP 08:00 | PROVIDERS: ATTEND Internal Medicine | DX: Z79.01 Long term (current) use of anticoagulants (principal); I48.91 Unspecified atrial fibrillation ==

== ENCOUNTER 2023-04-30 08:00 | Outpatient (CLI) | payer MEDICARE | END 2023-04-30 23:59 | disposition home or self-care (01) | LOC: LAB.WCP 08:00 | PROVIDERS: ATTEND Internal Medicine | DX: Z79.01 Long term (current) use of anticoagulants (principal); I48.91 Unspecified atrial fibrillation ==

== ENCOUNTER 2023-05-07 07:59 | Outpatient (CLI) | payer MEDICARE ==
[2023-05-07 12:51] LABS: BASOPHILS % (AUTO) 0.3 %; EOSINOPHILS # (AUTO) 0.1 10^3/uL (0.0-0.7); EOSINOPHILS % (AUTO) 1.8 %; HCT - HEMATOCRIT 43.7 % (42.0-52.0); HGB - HEMOGLOBIN 13.4 g/dL (14.0-18.0); LYMPHOCYTES # (AUTO) 0.9 10^3/uL (1.5-3.5); LYMPHOCYTES % (AUTO) 13.3 %; MEAN CORPUSCULAR HEMOGLOBIN 29.1 pg (27.0-31.0); MEAN CORPUSCULAR HGB CONC 30.7 g/dL (32.0-36.0); MEAN CORPUSCULAR VOLUME 94.8 fL (80.0-94.0); MEAN PLATELET VOLUME 12.1 fL (7.4-11.4); MONOCYTES # (AUTO) 0.4 10^3/uL (0.0-1.0); MONOCYTES % (AUTO) 6.1 %; NEUTROPHILS # (AUTO) 5.2 10^3/uL (1.5-6.6); NEUTROPHILS % (AUTO) 77.9 %; PLT - PLATELET COUNT 236 10^3/uL (130-450); RED BLOOD COUNT 4.61 10^6/uL (4.70-6.10); RED CELL DISTRIBUTION WIDTH 15.4 % (12.0-15.0); WHITE BLOOD COUNT 6.7 x10^3/uL (4.8-10.8)
[2023-05-07 12:53] LABS: ESTIMATED AVERAGE GLUCOSE 126 mg/dL (70-100)
[2023-05-07 13:06] LABS: THYROID STIMULATING HORMONE 2.96 uIU/mL (0.34-5.60)
[2023-05-07 13:07] LABS: ALBUMIN 4.5 g/dL (3.2-5.5); ALBUMIN/GLOBULIN RATIO 1.7 (1.0-2.2); ALKALINE PHOSPHATASE 94 IU/L (42-121); ALT ALANINE AMINOTRANSFERASE 30 IU/L (10-60); AST ASPARTATE AMINOTRANSFERASE 16 IU/L (10-42); BILIRUBIN,TOTAL 0.6 mg/dL (0.2-1.0); BUN - BLOOD UREA NITROGEN 26 mg/dL (6-20); CALCIUM 9.6 mg/dL (8.5-10.3); CARBON DIOXIDE - CO2 28 mmol/L (21-32); CHLORIDE 101 mmol/L (101-111); CHOL/HDL RATIO 2.4 (<5.0); CHOLESTEROL 120 mg/dL; CREATININE 1.1 mg/dL (0.6-1.3); GFR - MDRD 68 (>89); GLUCOSE 107 mg/dL (74-104); HDL CHOLESTEROL 50 mg/dL; LDL CHOLESTEROL,CALCULATED 43 mg/dL; LDL/HDL RATIO 0.9 (<3.6); POTASSIUM 4.4 mmol/L (3.5-4.5); SODIUM 137 mmol/L (135-145); TOTAL PROTEIN 7.2 g/dL (6.4-8.9); TRIGLYCERIDES 135 mg/dL (48-352); VLDL CHOLESTEROL 27 mg/dL
[2023-05-07 13:33] LABS: PROLACTIN 2.13 ng/mL
== END 2023-05-07 08:00 | disposition home or self-care (01) ==
LOC: LAB.N 07:59
PROVIDERS: ATTEND Internal Medicine
DX: D35.2 Benign neoplasm of pituitary gland (principal); I48.0 Paroxysmal atrial fibrillation; E11.9 Type 2 diabetes mellitus without complications; I42.9 Cardiomyopathy, unspecified
CPT/HCPCS: 36415; 80053; 80061; 83036; 83721; 84146; 84439; 84443; 85025

== ENCOUNTER 2023-05-28 08:00 | Outpatient (CLI) | payer MEDICARE, MEDICAID | END 2023-05-28 08:01 | disposition home or self-care (01) | LOC: LAB.WCP 08:00 | PROVIDERS: ATTEND Internal Medicine | DX: I48.91 Unspecified atrial fibrillation (principal); Z79.01 Long term (current) use of anticoagulants ==

== ENCOUNTER 2023-06-10 08:00 | Outpatient (CLI) | payer MEDICARE, MEDICAID ==
[2023-06-10 19:06] LABS: FECAL OCCULT BLOOD (FIT) POSITIVE (NEGATIVE)
== END 2023-06-10 23:59 | disposition home or self-care (01) ==
LOC: LAB.R 08:00
PROVIDERS: ATTEND Internal Medicine
DX: Z12.11 Encounter for screening for malignant neoplasm of colon (principal)
CPT/HCPCS: 82274

== ENCOUNTER 2023-07-02 08:00 | Outpatient (CLI) | payer MEDICARE, MEDICAID | END 2023-07-02 08:01 | disposition home or self-care (01) | LOC: LAB.WCP 08:00 | PROVIDERS: ATTEND Internal Medicine | DX: I48.91 Unspecified atrial fibrillation (principal); Z79.01 Long term (current) use of anticoagulants ==

== ENCOUNTER 2023-07-16 08:00 | Outpatient (CLI) | payer MEDICARE, MEDICAID | END 2023-07-16 08:01 | disposition home or self-care (01) | LOC: LAB.N 08:00 | PROVIDERS: ATTEND Internal Medicine | DX: I48.91 Unspecified atrial fibrillation (principal); Z79.01 Long term (current) use of anticoagulants ==

== ENCOUNTER 2023-07-30 08:00 | Outpatient (CLI) | payer MEDICARE, MEDICAID | END 2023-07-30 08:01 | disposition home or self-care (01) | LOC: LAB.WCP 08:00 | PROVIDERS: ATTEND Internal Medicine | DX: I48.91 Unspecified atrial fibrillation (principal); Z79.01 Long term (current) use of anticoagulants ==

== ENCOUNTER 2023-08-13 08:00 | Outpatient (CLI) | payer MEDICARE, MEDICAID | END 2023-08-13 08:01 | disposition home or self-care (01) | LOC: LAB.N 08:00 | PROVIDERS: ATTEND Internal Medicine | DX: I48.91 Unspecified atrial fibrillation (principal); Z79.01 Long term (current) use of anticoagulants ==

== ENCOUNTER 2023-09-03 08:00 | Outpatient (CLI) | payer MEDICARE, MEDICAID | END 2023-09-03 08:01 | disposition home or self-care (01) | LOC: LAB.WCP 08:00 | PROVIDERS: ATTEND Internal Medicine | DX: I48.91 Unspecified atrial fibrillation (principal); Z79.01 Long term (current) use of anticoagulants ==

== ENCOUNTER 2023-09-16 07:28 | Outpatient (CLI) | payer MEDICARE, MEDICAID ==
[2023-09-16 12:08] LABS: CALCIUM 9.9 mg/dL (8.5-10.3); CREATININE 1.3 mg/dL (0.6-1.3); POTASSIUM 4.6 mmol/L (3.5-4.5)
[2023-09-16 12:18] LABS: ESTIMATED AVERAGE GLUCOSE 134 mg/dL (70-100); HEMOGLOBIN A1c% 6.3 % (4.27-6.07)
[2023-09-16 12:30] LABS: PROLACTIN 2.19 ng/mL
== END 2023-09-16 07:29 | disposition home or self-care (01) ==
LOC: LAB.N 07:28
PROVIDERS: ATTEND Internal Medicine
DX: E11.9 Type 2 diabetes mellitus without complications (principal); D35.2 Benign neoplasm of pituitary gland
CPT/HCPCS: 36415; 80048; 83036; 84146

== ENCOUNTER 2023-10-01 08:00 | Outpatient (CLI) | payer MEDICARE, MEDICAID | END 2023-10-01 08:01 | disposition home or self-care (01) | LOC: LAB.WCP 08:00 | PROVIDERS: ATTEND Internal Medicine | DX: I48.91 Unspecified atrial fibrillation (principal); Z79.01 Long term (current) use of anticoagulants ==

== ENCOUNTER 2023-10-15 09:06 | Outpatient (CLI) | payer MEDICARE, MEDICAID ==
[2023-10-15 12:26] LABS: CALCIUM 10.2 mg/dL (8.5-10.3); CREATININE 1.2 mg/dL (0.6-1.3); POTASSIUM 4.7 mmol/L (3.5-4.5)
== END 2023-10-15 09:07 | disposition home or self-care (01) ==
LOC: LAB.N 09:06
PROVIDERS: ATTEND Internal Medicine
DX: I50.20 Unspecified systolic (congestive) heart failure (principal)
CPT/HCPCS: 36415; 80048

== ENCOUNTER 2023-11-05 08:00 | Outpatient (CLI) | payer MEDICARE, MEDICAID | END 2023-11-05 08:01 | disposition home or self-care (01) | LOC: LAB.WCP 08:00 | PROVIDERS: ATTEND Internal Medicine | DX: I48.91 Unspecified atrial fibrillation (principal); Z79.01 Long term (current) use of anticoagulants ==

== ENCOUNTER 2024-01-28 08:00 | Outpatient (CLI) | payer MEDICARE, MEDICAID | END 2024-01-28 23:59 | disposition home or self-care (01) | LOC: LAB.WCP 08:00 | PROVIDERS: ATTEND Internal Medicine | DX: I48.91 Unspecified atrial fibrillation (principal); Z79.01 Long term (current) use of anticoagulants ==

== ENCOUNTER 2024-02-06 13:58 | Outpatient (CLI) | payer MEDICARE, MEDICAID ==
--- NOTE | 2024-02-06 14:28 | SLEEP CARE CONSULTATION ---
Information from patient questionnaire entered by Rafi Willingham. I have reviewed and concur with the information entered by Rafi Willingham. This document represents the service I personally performed and the decisions made by , Michelle Landaverde ARNP. History of Present Illness Service Date and Time: 02/06/2024 1358 Previous diagnosis: Severe, Obstructive Sleep Apnea-Hypopnea Syndrome AHI: 50.1 (in 2020) Reason for follow up: annual (Last seen 01/2023) Equipment type: CPAP (ResMed 10; s/u -2020) Equipment obtained from: [employer] (getting supplies as needed) Mask style: Full face Backup mask available: Yes Last cushion change: 5 weeks Prior sleep studies: Yes Year and Where: 2020 - [facility] Type of Sleep Study: Home sleep study HPI additional information: REINA FALK was diagnosed to have severe, AHI 50.1, obstructive sleep apnea- hypopnea syndrome and returned today for CPAP therapy annual follow-up. Sleep Study - Results Type of Sleep Study: Home sleep study Prior sleep studies: Yes Year and Where: 2020 - [email or web address] CPAP Compliance Data - Data Reviewed with Patient Average duration of nightly device use: 5 h 31 min Compliance rate %: 88 (176/180 days used) Current pressure setting (cmH2O): 13-16 Average residual AHI: 2.1 Central apnea: 1.2 Obstructive apnea: 0.3 Hypopnea: 0.5 Average large leak: 3.2 Subjective Patient concerns: denies: aerophagia, mask discomfort, air blowing in eyes, mask leak noise, condensation in mask/hose, nasal congestion, dry mouth, nose, throat, epistaxis Observed to snore while using device: No Current pressure setting perceived as: comfortable On therapy, patient: reports: sleeping better, awakening more refreshed, being more awake and alert during the day, more rested overall. denies: drowsiness while driving Initial [place] Sleepiness Scale score: 24 (in 2020) Current [place] Sleepiness Scale score: 13 (02/06/24) Allergies and Home Medications Known drug allergies: No Drug allergies reviewed: Yes Home medication list reviewed: Yes (no changes) Allergy and home medication list: Allergies No Known Drug Allergies Allergy (Verified 02/05/23 13:51) Review of Systems Review of systems same as previous: Yes (no changes) Physical Exam Vital signs obtained and entered by: Michelle Charlton NP Blood Pressure: 122/69 Cuff size: long (right arm) Heart Rate: 81 O2 Saturation: 99 Height: 5 ft 10 in Weight: 377 lb 12.8 oz Weight change since last visit: 13 lb loss Body Mass Index: 54.2 BMI Classification: Morbidly Obese Impression and Plan 1. Obstructive Sleep Apnea-Hypopnea Syndrome, severe, with good treatment compliance and good apnea control. On CPAP therapy, the patient has better sleep quality and is more rested overall. Patient has significant improvement of their sleep apnea and is satisfied with current CPAP therapy. Patient denies problems with oral dryness, nasal congestion, epistaxis, skin irritation or aerophagia. Patient's apnea severity and rationale for treatment to reduce apnea, improve sleep quality and reduce cardiovascular and cerebrovascular events was reviewed. I also reviewed the benefit of consistent device use of CPAP for cardiac disease (CHF), arrhythmia, diabetes. 2. Obesity, unspecified. Currently patients BMI is 54.2. He has lost weight since taking Ozempic. Obesity increases the risk of apnea, CPAP pressure requirements and overall health risks especially cardiovascular and diabetes. Thus patient is advised to continue to try to lose weight. * Continue auto CPAP pressure at 13-16 cmH2O * Update supply prescription. * Notify me if snoring with mask or feeling that the pressure is too much or too little * Attempt to lose weight * Call this office if any problems using CPAP * Return for follow up in 12 months, or sooner if concerns arise Counseling Topics: Spare mask, Weight loss health impact Prescriptions: Device supplies Follow up with Sleep Care in: 1 year Visit Type: In Office Time Spent with Patient (minutes): 22 Provider Statement: I spent 100% of the Face to Face Visit with the patient with greater than 50% spent counseling the patient and coordination of care.
[2024-02-06 14:42] VITALS: BP 122/69; O2SAT 99
== END 2024-02-06 13:59 | disposition home or self-care (01) ==
LOC: SC 13:58
PROVIDERS: ATTEND Nurse Practitioner Family
DX: G47.33 Obstructive sleep apnea (adult) (pediatric) (principal); E66.01 Morbid (severe) obesity due to excess calories; Z68.43 Body mass index [BMI] 50.0-59.9, adult
CPT/HCPCS: 99213; G0463; 99212